=== PATIENT | female | born 1985 | race Caucasian/White ===

== ENCOUNTER 2022-08-03 12:56 | Emergency (ER) | payer BC, SELFPAY ==
[2022-08-03 12:57] VITALS: BP 105/69; PULSE 80; RESP 16; TEMP 36.5; O2SAT 98; BMI 25.1
--- NOTE | 2022-08-03 13:02 | ED_ITS ---
HPI - Chest Pain General Time Seen by Provider: 13:02 Date Seen: 08/03/22 Chief Complaint: Chest Pain Stated Complaint: Chest pain Time Seen by Provider: 08/03/22 13:02 Source: patient, RN notes reviewed and old records reviewed Mode of arrival: ambulatory Limitations: no limitations History of Present Illness HPI narrative: Patient is a very pleasant 36-year-old female who is status post thyroid cancer with recurrence by 1 year who comes to the emergency room with complaints of chest pain. Patient notes that for and off she has been experiencing anterior chest pain occasionally associated with radiation into her left neck and left arm. She does not think that this is associated with activity and does not have increasing discomfort with movement. Deep breathing does not increase her pain. She is not short of breath. She has not had any recent fever or chills. She has recently return from [place]. She denies calf tenderness or swelling. Of note, patient was diagnosed with thyroid cancer in 2014 and had partial thyroidectomy. She had recurrence of thyroid cancer 1 year ago and had the rest of her thyroid removed. Patient also notes that she has had episodes of flushing that she finds uncomfortable. She notes that this often happens after drinking coffee 1st thing in the morning but can also happen randomly. She is currently on magnesium daily. Patient notes significant grief and people in her last 8 months. Her mother had an aneurysm and a stroke and her father in law is currently dying from cancer. In addition of course she had recurrence or thyroid cancer and a total thyroidectomy 1 year ago. 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 Related Data Allergies Allergy/AdvReac Type Severity Reaction Status Date / Time No Known Drug Allergies Allergy Verified 08/03/22 13:01 Review of Systems Status of ROS Reports: 10 or more systems reviewed and unremarkable except as noted in History and below Const Reports: fatigue; Denies: fever or chills Eyes Denies: change in vision ENMT Denies: throat pain, difficulty swallowing or hoarseness Cardio Reports: chest pain; Denies: palpitations, swelling of feet/ankles, lightheadedness or shortness of breath with exertion Resp Denies: shortness of breath or cough GI Reports: other (Loose stools occasionally.); Denies: abdominal pain, nausea, vomiting, diarrhea or difficulty swallowing Denies: painful urination Musculo Denies: extremity pain Integ/Breast Reports: redness (Slight facial flushing when she feels hot.); Denies: rash Neuro Denies: headache Endo Reports: fatigue PFSH PFSH Social History Smoking Status: Never smoker Do you use any of these nicotine containing products: None How often do you have a drink containing alcohol: 4 or more times a week How many standard drinks containing alcohol do you have on a typical day: 1 or 2 AUDIT-C Alcohol total score: 4 Non-prescribed substance use: denies use service: No Exam Narrative Exam Narrative: Patient is alert and oriented. No acute distress. Eyes are clear. Head is atraumatic normocephalic. Mentation is normal. Neck is supple. No lymphadenopathy. Heart with regular rate and rhythm. No murmur or rub is noted. Lungs are clear in all lung lentz. Abdomen soft nontender. Lower extremities without edema or calf tenderness. Const Vital Signs, click to edit/add: Vital Signs - 24 hr 08/03/22 12:57 08/03/22 15:12 Temperature 97.7 F 98.1 F Pulse Rate [Pulse Oximeter] 80 84 Respiratory Rate 16 16 Blood Pressure [Right Upper Arm] 105/69 110/10 L Pulse Oximetry 98 96 Oxygen Delivery Method Room Air Room Air Documenting provider has reviewed patient's vital signs: yes Course Course Hospital Course: At this time I do discuss with patient importance of immediate rule out for underlying cardiac cause. Her vital signs are stable at this time and was must also include a D-dimer to rule out the possibility of PE. In addition chest x- ray will be accomplished to ensure no evidence of masses or underlying effusion or pneumonia. Vital Signs Vital signs: Initial Vital Signs Temperature 97.7 F 08/03/22 12:57 Temperature Source Temporal Artery Scan 08/03/22 12:57 Pulse Rate 80 08/03/22 12:57 Pulse Rhythm 08/03/22 12:57 Pulse Strength 3+ Normal 08/03/22 12:57 Respiratory Rate 16 08/03/22 12:57 Blood Pressure 105/69 08/03/22 12:57 Blood Pressure Mean 81 08/03/22 12:57 Blood Pressure Position Sitting 08/03/22 12:57 Pulse Oximetry 98 08/03/22 12:57 Oxygen Delivery Method 08/03/22 12:57 Vital Signs Temperature 97.7 F 08/03/22 12:57 Pulse Rate 80 02/22/23 12:57 Respiratory Rate 16 08/03/22 12:57 Blood Pressure 105/69 08/03/22 12:57 Pulse Oximetry 98 08/03/22 12:57 Oxygen Delivery Method 08/03/22 12:57 Temperature 98.1 F 08/03/22 15:12 Pulse Rate 84 08/03/22 15:12 Respiratory Rate 16 08/03/22 15:12 Blood Pressure 110/10 L 08/03/22 15:12 Pulse Oximetry 96 08/03/22 15:12 Oxygen Delivery Method 08/03/22 15:12 MDM - Chest Pain MDM Narrative Medical decision making narrative: 1. Atypical chest pain-patient is noted to have 2 normal EKGs. During her time here there is no evidence of arrhythmia or ectopy noted on her athletic monitor. Troponin negative x2 pain does not appear to be related to activity and this is been ongoing for quite some time. This does not appear to be cardiac in nature but I do recommend patient follow through with stress testing. Limited intense activity until that time. Follow-up with primary MD. suggest relaxation yoga or deep breathing exercises. We talked about various Apps including calm and had space. 2. Status post thyroidectomy-TSH pending 3. Flushing and hot flushes-magnesium normal at 1.9. Vitamin-D level not available at this time. 3. Disposition-home. Reassurance at this time. However, recommended to patient to return for any new or worsening symptoms. She actually states she is feeling better and relieved as she was worried about masses on the chest x-ray given her thyroid disease. Also worried about PE but I have reassured her that her D- dimer is negative. She also has no evidence of tachycardia or hypoxia. Medical Records Data Attestation: I reviewed the patient's medical records. Lab Data Attestation: I reviewed the patient's lab results. Labs: Lab Results 08/03/22 08/03/22 08/03/22 Range/Units 13:32 13:45 14:20 WBC 6.72 (4.50-11.00) K/uL RBC 4.50 (4.00-5.20) m/uL Hgb 12.2 (12.0-16.0) gm/dL Hct 37.9 (33.0-51.0) % MCV 84 (80-100) fL MCH 27 (26-34) pg MCHC 32 (32-36) gm/dL RDW Coeff of Scott 14.7 (11.5-15.5) % Plt Count 295 (140-440) K/uL Neut % (Auto) 66.6 (42.0-72.0) % Lymph % (Auto) 15.6 L (20-44) % [place] % (Auto) 8.5 (0.0-11.0) % Eos % (Auto) 8.5 H (0.0-7.0) % Baso % (Auto) 0.7 (0.0-3.0) % Neut # (Auto) 4.47 (1.7-7.0) K/uL Lymph # (Auto) 1.00 (0.90-2.90) K/uL [place] # (Auto) 0.60 (0.00-0.90) K/UL Eos # (Auto) 0.60 H (0.00-0.50) K/uL Baso # (Auto) 0.05 (0.00-0.30) K/uL D-Dimer Quant (PE/DVT) < 0.27 (0.00-0.50) ug/ml Sodium (135-149) mmol/L Potassium (3.6-5.1) mmol/L Chloride (96-114) mmol/L Carbon Dioxide (20-32) mmol/L BUN (5-24) mg/dL Creatinine (0.5-1.5) mg/dL Estimated Creat Clear Estimated GFR ml/min Glucose (60-115) mg/dL Calcium (8.4-10.6) mg/dL Magnesium (1.5-2.6) mg/dL Total Bilirubin (0.1-1.5) mg/dL AST (12-35) U/L ALT (4-35) U/L Alkaline Phosphatase (40-150) U/L C-Reactive Protein (0.5-1.0) mg/dL Total Protein (6.0-8.3) g/dL Albumin (3.3-5.0) g/dL 25-OH Vitamin D Total (30-80) ng/mL Urine Color Yellow (Yellow) Urine Appearance Clear (Clear) Urine pH 8.0 (5.0-8.5) Ur Specific [place] 1.020 (1.000-1.030) Urine Protein Negative (Negative) Urine Glucose (UA) Negative (Negative) Urine Ketones Negative (Negative) Urine Blood Negative (Negative) Urine Nitrite Negative (Negative) Urine Bilirubin Negative (Negative) Urine Urobilinogen 0.2 (0.2-1.0) Ur Leukocyte Esterase Negative (Negative) Urine RBC 0-2 (0-2) Urine WBC 0-2 (0-5) Ur Squamous Epith Cells Few (None-Few) Urine Bacteria Few A (None) POC Troponin I (0.01-0.04) ng/ml 08/03/22 08/03/22 08/03/22 Range/Units 14:20 14:20 14:20 WBC (4.50-11.00) K/uL RBC (4.00-5.20) m/uL Hgb (12.0-16.0) gm/dL Hct (33.0-51.0) % MCV (80-100) fL MCH (26-34) pg MCHC (32-36) gm/dL RDW Coeff of Scott (11.5-15.5) % Plt Count (140-440) K/uL Neut % (Auto) (42.0-72.0) % Lymph % (Auto) (20-44) % [place] % (Auto) (0.0-11.0) % Eos % (Auto) (0.0-7.0) % Baso % (Auto) (0.0-3.0) % Neut # (Auto) (1.7-7.0) K/uL Lymph # (Auto) (0.90-2.90) K/uL [place] # (Auto) (0.00-0.90) K/UL Eos # (Auto) (0.00-0.50) K/uL Baso # (Auto) (0.00-0.30) K/uL D-Dimer Quant (PE/DVT) (0.00-0.50) ug/ml Sodium 138 (135-149) mmol/L Potassium 3.9 (3.6-5.1) mmol/L Chloride 107 (96-114) mmol/L Carbon Dioxide 24 (20-32) mmol/L BUN 18 (5-24) mg/dL Creatinine 0.6 (0.5-1.5) mg/dL Estimated Creat Clear 126.05 Estimated GFR 119 ml/min Glucose 102 (60-115) mg/dL Calcium 8.7 (8.4-10.6) mg/dL Magnesium 1.9 (1.5-2.6) mg/dL Total Bilirubin 0.4 (0.1-1.5) mg/dL AST 22 (12-35) U/L ALT 16 (4-35) U/L Alkaline Phosphatase 50 (40-150) U/L C-Reactive Protein < 0.5 L (0.5-1.0) mg/dL Total Protein 7.6 (6.0-8.3) g/dL Albumin 4.6 (3.3-5.0) g/dL 25-OH Vitamin D Total 43 (30-80) ng/mL Urine Color (Yellow) Urine Appearance (Clear) Urine pH (5.0-8.5) Ur Specific [place] (1.000-1.030) Urine Protein (Negative) Urine Glucose (UA) (Negative) Urine Ketones (Negative) Urine Blood (Negative) Urine Nitrite (Negative) Urine Bilirubin (Negative) Urine Urobilinogen (0.2-1.0) Ur Leukocyte Esterase (Negative) Urine RBC (0-2) Urine WBC (0-5) Ur Squamous Epith Cells (None-Few) Urine Bacteria (None) POC Troponin I 0.01 (0.01-0.04) ng/ml 08/03/22 Range/Units 15:28 WBC (4.50-11.00) K/uL RBC (4.00-5.20) m/uL Hgb (12.0-16.0) gm/dL Hct (33.0-51.0) % MCV (80-100) fL MCH (26-34) pg MCHC (32-36) gm/dL RDW Coeff of Scott (11.5-15.5) % Plt Count (140-440) K/uL Neut % (Auto) (42.0-72.0) % Lymph % (Auto) (20-44) % [place] % (Auto) (0.0-11.0) % Eos % (Auto) (0.0-7.0) % Baso % (Auto) (0.0-3.0) % Neut # (Auto) (1.7-7.0) K/uL Lymph # (Auto) (0.90-2.90) K/uL [place] # (Auto) (0.00-0.90) K/UL Eos # (Auto) (0.00-0.50) K/uL Baso # (Auto) (0.00-0.30) K/uL D-Dimer Quant (PE/DVT) (0.00-0.50) ug/ml Sodium (135-149) mmol/L Potassium (3.6-5.1) mmol/L Chloride (96-114) mmol/L Carbon Dioxide (20-32) mmol/L BUN (5-24) mg/dL Creatinine (0.5-1.5) mg/dL Estimated Creat Clear Estimated GFR ml/min Glucose (60-115) mg/dL Calcium (8.4-10.6) mg/dL Magnesium (1.5-2.6) mg/dL Total Bilirubin (0.1-1.5) mg/dL AST (12-35) U/L ALT (4-35) U/L Alkaline Phosphatase (40-150) U/L C-Reactive Protein (0.5-1.0) mg/dL Total Protein (6.0-8.3) g/dL Albumin (3.3-5.0) g/dL 25-OH Vitamin D Total (30-80) ng/mL Urine Color (Yellow) Urine Appearance (Clear) Urine pH (5.0-8.5) Ur Specific [place] (1.000-1.030) Urine Protein (Negative) Urine Glucose (UA) (Negative) Urine Ketones (Negative) Urine Blood (Negative) Urine Nitrite (Negative) Urine Bilirubin (Negative) Urine Urobilinogen (0.2-1.0) Ur Leukocyte Esterase (Negative) Urine RBC (0-2) Urine WBC (0-5) Ur Squamous Epith Cells (None-Few) Urine Bacteria (None) POC Troponin I 0.00 L (0.01-0.04) ng/ml Imaging Data Chest x-ray: Attestation: I have reviewed the pertinent imaging results. My impression: No noted infiltrates or masses. Radiologist's impression: Cardiovasculature and mediastinum: Heart size and vasculature are normal in c aliber and appearance. Lungs and pleural spaces: Lungs are clear. No sign of infiltrate or mass. No sign of pleural effusion. No pneumothorax. Bones and soft tissues: No significant findings. IMPRESSION: No acute or significant findings. ECG Data Attestation: I personally reviewed and interpreted this ECG as follows: ECG interpretation date: 08/03/22 Interpretation: EKG 1. By my read shows sinus rhythm at a rate of 80. I do not note any acute ST or T-wave changes. Discharge Plan Discharge Clinical Impression: Atypical chest pain Patient Disposition: Home, Self-Care Condition: Improved Additional Instructions: Follow-up with primary MD for scheduling of stress testing. At this time there is no evidence of a heart attack or PE or cardiac injury or pericarditis/ myocarditis. I do suggest some antianxiety techniques, deep breathing, relaxation yoga. You may also try ibuprofen if needed. Do not hesitate to Return to the emergency room for worsening symptoms and as needed. Stand Alone Forms: [employer] Info Instructions
[2022-08-03 13:52] LABS: Appearance Urine Clear (Clear); Bilirubin Urine Negative (Negative); Blood Urine Negative (Negative); Color Urine Yellow (Yellow); Glucose Urine Negative (Negative); Ketones Urine Negative (Negative); Leukocyte Esterase Urine Negative (Negative); Nitrite Urine Negative (Negative); Protein Urine Negative (Negative); Urobilinogen Urine 0.2 (0.2-1.0)
--- NOTE | 2022-08-03 13:57 | CRLHL7_ITS ---
For Patients: As a result of the Century Cures Act, medical imaging exams and procedure reports are released immediately into your electronic medical record. You may view this report before your referring provider. If you have questions, please contact your health care provider. INDICATION: Chest pain. TECHNIQUE: Chest 1 views. COMPARISON: None. FINDINGS: Cardiovasculature and mediastinum: Heart size and vasculature are normal in caliber and appearance. Lungs and pleural spaces: Lungs are clear. No sign of infiltrate or mass. No sign of pleural effusion. No pneumothorax. Bones and soft tissues: No significant findings. IMPRESSION: No acute or significant findings. Dictated by Ayo Stone MD @ 08/03/2022 2:29:38 PM (Electronically Signed)
[2022-08-03 14:06] LABS: Bacteria Urine Few; RBC Urine 0-2 (0-2); Squamous Epithelial Cell Urine Few (None-Few); WBC Urine 0-2 (0-5)
[2022-08-03 14:32] LABS: Basophils Absolute Auto 0.05 K/uL (0.00-0.30); Basophils Percent Auto 0.7 % (0.0-3.0); Eosinophils Percent Auto 8.5 % (0.0-7.0); Hematocrit 37.9 % (33.0-51.0); Hemoglobin* 12.2 gm/dL (12.0-16.0); Immature Granulocytes Abs Auto 0.01 K/uL (0.00-0.30); Immature Granulocytes Pct Auto 0.1 %; Lymphocytes Percent Auto 15.6 % (20-44); Mean Corpuscular HGB Conc 32 gm/dL (32-36); Mean Corpuscular Hemoglobin 27 pg (26-34); Mean Corpuscular Volume 84 fL (80-100); Monocytes Percent Auto 8.5 % (0.0-11.0); Neutrophils Absolute Auto 4.47 K/uL (1.7-7.0); Neutrophils Percent Auto 66.6 % (42.0-72.0); Platelet Count* 295 K/uL (140-440); RDW Coefficient of Variation % 14.7 % (11.5-15.5); White Blood Count* 6.72 K/uL (4.50-11.00)
[2022-08-03 14:34] LABS: Troponin, Point-of-Care* 0.01 ng/ml (0.01-0.04)
[2022-08-03 14:37] LABS: Slide Review Reflex No
[2022-08-03 14:50] LABS: Chloride* 107 mmol/L (96-114)
[2022-08-03 14:53] LABS: Albumin* 4.6 g/dL (3.3-5.0); Creatinine* 0.6 mg/dL (0.5-1.5); Est. Creatinine Clearance* 126.05; Estimated Glomerular Filt Rate 119 ml/min; Potassium* 3.9 mmol/L (3.6-5.1); Sodium* 138 mmol/L (135-149)
[2022-08-03 14:54] LABS: Alanine Aminotransferase* 16 U/L (4-35); Alkaline Phosphatase* 50 U/L (40-150); Aspartate Amino Transferase* 22 U/L (12-35); Bilirubin Total* 0.4 mg/dL (0.1-1.5); Blood Urea Nitrogen* 18 mg/dL (5-24); Carbon Dioxide* 24 mmol/L (20-32); Glucose* 102 mg/dL (60-115); Total Protein* 7.6 g/dL (6.0-8.3)
[2022-08-03 14:55] LABS: Calcium* 8.7 mg/dL (8.4-10.6); D Dimer Quantitative* < 0.27 ug/ml (0.00-0.50); Magnesium* 1.9 mg/dL (1.5-2.6)
[2022-08-03 15:05] LABS: C Reactive Protein* < 0.5 mg/dL (0.5-1.0)
[2022-08-03 15:11] LABS: Vitamin D 25 Hydroxy* 43 ng/mL (30-80)
[2022-08-03 15:12] VITALS: BP 110/10; PULSE 84; RESP 16; TEMP 36.7; O2SAT 96
[2022-08-03 17:13] LABS: Thyroid Stimulating Hormone* 0.261 uIU/mL (0.270-4.20)
== END 2022-08-03 16:29 | disposition home or self-care (01) ==
PROVIDERS: Emergency Provider Family Medicine; PCP Family Medicine
DX: R07.9 Chest pain, unspecified (principal)
CPT/HCPCS: 36415; 71045; 80053; 81001; 82306; 82652; 83735; 84443; 84484; 85025; 85379; 86140; 87086; 93005; 99284

== ENCOUNTER 2023-08-04 10:15 | Outpatient (RCR) | payer BC, SELFPAY | END 2023-11-23 07:44 | disposition home or self-care (01) | PROVIDERS: PCP Family Medicine; Visit Provider Family Medicine | DX: N81.10 Cystocele, unspecified (principal); Z51.89 Encounter for other specified aftercare | CPT/HCPCS: 97110; 97112; 97162; 97535 ==

== ENCOUNTER 2024-06-27 08:09 | Outpatient (CLI) | payer BC, SELFPAY ==
--- NOTE | 2024-06-27 08:15 | CRLHL7_ITS ---
For Patients: As a result of the Cures Act, medical imaging exams and procedure reports are released immediately into your electronic medical record. You may view this report before your referring provider. If you have questions, please contact your health care provider. OB ULTRASOUND ??? TWIN INDICATION: Dating and viability. TECHNIQUE: Real time hurtado scale imaging of the fetus was performed. Transvaginal. LMP: 04/29/2024. YAS by LMP: 02/03/2025. GA: 8 w, 3 d. Previous US: No. BABY A: CRL: 2.3 cm. 9 w 0 d. YAS: 01/30/2025. FHR: 169 BPM. Gestational sac: 3.8 cm. Appears within normal limits. Yolk sac: 4.9 mm. Appears within normal limits. BABY B: CRL: 2.3 cm. 9 w 0 d. YAS: 01/30/2025. FHR: 171 BPM. Gestational sac: 4.3 cm. Appears within normal limits. Yolk sac: 4.1 mm. Appears within normal limits. Right ovary: Within normal limits. 4.0 x 2.4 x 26 cm. CL cyst 2.5 x 1.8 x 2.2 cm. Left ovary: Within normal limits. 3.9 x 2.3 x 2.3 cm. CL cyst 1.4 x 1.4 x 1.5 cm. IMPRESSION: 1. Diamniotic-dichorionic twin gestation. 2. Twin A: Gestational age 9 weeks 0 days and sonographic due date 01/30/2025, maternal left. 3. Twin B: Sonographic age 9 weeks 0 days and a sonographic due date 01/30/2025, maternal right. 4. Subchorionic hemorrhages measuring 16 x 5 x 13 mm on the right and 24 x 4 x 26 mm in the midline. 5. Bilateral corpus luteal cysts within the ovaries. Pierce Haney M.D. Diagnostic Radiologist [email or web address] JESSICA/lilly carr/Dictated by: Pierce Haney MD @ 06/27/2024 9:10:00 AM (Electronically Signed)
== END 2024-06-27 08:10 | disposition home or self-care (01) ==
LOC: US 08:11
PROVIDERS: PCP Family Medicine; Visit Provider Advanced Practice Midwife
DX: O30.041 Twin pregnancy, dichorionic/diamniotic, first trimester (principal); O20.9 Hemorrhage in early pregnancy, unspecified; O34.81 Maternal care for other abnormalities of pelvic organs, first trimester; N83.12 Corpus luteum cyst of left ovary; N83.11 Corpus luteum cyst of right ovary; Z3A.09 9 weeks gestation of pregnancy
CPT/HCPCS: 76817; 83021; 84439; 84443; 86592; 86703; 86704; 86706; 86762; 86787; 86803; 86850; 86900; 86901; 87086; 87340

== ENCOUNTER 2024-07-16 11:35 | Outpatient (CLI) | payer BC, SELFPAY | END 2024-07-16 11:36 | disposition home or self-care (01) | LOC: NFLDREF 07-17 02:24 | PROVIDERS: PCP Family Medicine; Referring Provider Family Medicine; Visit Provider Advanced Practice Midwife | DX: Z85.850 Personal history of malignant neoplasm of thyroid (principal); Z98.890 Other specified postprocedural states; Z90.89 Acquired absence of other organs | CPT/HCPCS: 84443 ==

== ENCOUNTER 2024-11-01 01:39 | Emergency (ER) | payer BC, SELFPAY ==
--- OUTSIDE RECORDS SUMMARY | 2024-10-01 09:45 | XMS_ITS | Encounter Summary ---
Author Organization [facility] Address [address] [place] [id number] Care Team Providers Care Heat Treat Technician Name Role Phone Elsewhere, Pcp Primary Care Provider Unavailabl e Reason for Visit * Reason Onset Date Comments Pre-visit Intake 10/01/2024 * Appointment Request (Routine) - Authorized Specialty Diagnoses / Procedures Referred By Lynne sky Referred To Contact Dermatology Referral ID Status Reason Start Date Expiration Date V isits Requested Visits Authorized [id number] Authorized 09/23/2024 12/24/2025 1 1 Encounter Details Date Type Department Care Team (Latest Contact Info) Description 10/01/2024 9:45 AM CDT Clinical Communication Virtual Review in [place], [place] [address] [place] [phone] Pre-visit Intake Social History Tobacco Use Types Packs/Day Years Used Date Smoking Tobacco: Never Smokeless Tobacco: Never Tobacco Cessation:Counseling Given: Not Answered Alcohol Use Standard Drinks/Week Comments Not Currently 6 (1 standard drink = 0.6 oz pur e alcohol) [facility] Utilities Answer Date Recorded In the past 12 months has th e electric, gas, oil, or water company threatened to shut off services in your home? No 07/10/2024 Social Connection and Isolat ion Panel [NHANES] Answer Date Recorded In a typical week, how many times do you talk on the phone with family, friends, or neighbors? More than three times a week 07/23/2019 How often do you get togethe r with friends or relatives? Once a week 07/23/2019 How often do you attend [facility] or roman catholic services? Never 07/23/2019 Do you belong to any clubs o r organizations such as presybeterian groups, unions, fraternal or athletic groups, or school groups? No 07/23/2019 How often do you attend meet ings of the clubs or organizations you belong to? Never 07/23/2019 Are you , , di vorced, , never , or living with a partner? 07/23/2019 AUDIT-C Answer Date Recorded Q1: How often do you have a drink containing alc ohol? 2-3 times a week 07/23/2019 Q2: How many drinks containi ng alcohol do you have on a typical day when you are drinking? 1 or 2 07/23/2019 Q3: How often do you have si x or more drinks on one occasion? Never 07/23/2019 Overall Financial Resource Strain (CARDIA) Answe r Date Recorded How hard is it for you to pa y for the very basics like food, housing, medical care, and heating? Not hard at all 07/23/2019 PHQ-2 Answer Date Recorded PHQ-2 Score 0 07/23/2024 [facility] - Occupational Stress Questionnaire Answer Date Recorded Do you feel stress - tense, restless, nervous, or anxious, or unable to sleep at night because your mind is troubled all the time - these days? Only a little 07/23/2019 Exercise Vital Sign Answer Date Recorde d On average, how many days pe r week do you engage in moderate to strenuous exercise (like a brisk walk)? 1 day 07/10/2024 On average, how many minutes do you engage in exercise at this level? 40 min 07/10/2024 Hunger Vital Sign Answer Date Recorded Within the past 12 months, y ou worried that your food would run out before you got the money to buy more. Never true 07/10/19 25 Within the past 12 months, t he food you bought just didn't last and you didn't have money to get more. Never true 07/10/2024 PRAPARE - Transportation Answer Date Re corded In the past 12 months, has l ack of transportation kept you from medical appointments or from getting medications? No 06/13 In the past 12 months, has l ack of transportation kept you from meetings, work, or from getting things needed for daily living? No 07/10/2024 Depression Answer Date Recor ded PHQ-9 Total Score (max 27) 1 07/23 Nutrition Answer Date Recorded On average, how many serving s of fruits and vegetables do you eat per day (serving size is equal to 1 cup or approximately the size of a tennis ball)? 0-2 07/10/2024 Dental Answer Date Recorded Dental: Regular Dentist Yes 07/10/19 25 Employment Answer Date Recorded Employment status Employed and actively working without restrictions 07/10/2024 Housing Stability Answer Date Recorded What is your living situation today? I have a [facility] place to live 07/10/2024 Education Answer Date Recorded What is the highest level of school you have completed or the highest degree you have received? Bachelor's degree (e.g., BA, AB, BS) 07/23/2019 Estimated Date of Delivery Comme nts Yes 01/25/2025 Based on Ultraso und Sex and Gender Information Value Date Recorded Sex Assigned at Female 12/07/2017 3:47 PM CDT Legal Sex Female 4:23 AM COMMUTATOR OPERATOR Gender Identity Female 12/07/2017 3:47 PM CDT Sexual Orientation Straight 12/07/2017 3: 47 PM CDT documented as of this encounter Plan of Treatment Upcoming Encounters Date Type Department Care Team (Late st Contact Info) Description 11/18/2024 7:30 AM CDT Appointment Department of Obstetrics and Gynecology in [place], [place] [address] [place] [phone] Yaa Hou M.D. [address] [place] [phone] Discharge Disposition: Home or Self Care 11/18/2024 9:30 AM CDT Routine Department of Obstetrics and Gynecology in [place], [place] [address] [place] [phone] Yaa Hou M.D. [address] [place] [phone] 12/06/2024 7:30 AM CDT Appointment Department of Obstetrics and Gynecology in [place], [place] [address] [place] [phone] Yaa Hou M.D. [address] [place] [phone] Discharge Disposition: Home or Self Care 12/06/2024 10:00 AM CDT Routine Department of Obstetrics and Gynecology in [place], [place] [address] [place] [phone] Lauren Syed M.D., Ph.D. [address] [place] [phone] 12/16/2024 9:15 AM CDT Appointment Department of Obstetrics and Gynecology in [place], [place] [address] [place] [phone] Yaa Hou M.D. [address] [place] [phone] Discharge Disposition: Home or Self Care 12/16/2024 11:00 AM CDT Routine Department of Obstetrics and Gynecology in [place], [place] [address] [place] [phone] Yaa Hou M.D. [address] [place] [phone] documented as of this encounter Goals Goal Patient Goal Type Associated Problems Recent Progress Patient-Stated? Author [facility] Care Plan for Healthy Care Plan [facility] Care Plan for Healthy No Support, [facility] - Nicotine Dependency Chronic Care Plan [facility] Care Plan for Healthy No Support, [employer] documented as of this encounter Visit Diagnoses Not on filedocumented in this encounter Additional Health Concerns Active Problems Noted Date Diagnosed Date [facility] Care Plan for Healthy 06/13 Assessment Noted Time PHQ-9 Depression Total Score: 1 07/23/19 25 9:31 AM COMMUTATOR OPERATOR documented as of this encounter Care Teams Heat Treat Technician Relationship Specialty Start Date End Date Elsewhere, Pcp PCP - General Internal Medicine 03/19/24 Surajbird 07/23/24 documented as of this encounter
--- OUTSIDE RECORDS SUMMARY | 2024-10-03 16:40 | XMS_ITS | Encounter Summary ---
Author Organization [facility] Address [address] [place] [id number] Care Team Providers Care Reimbursement Counselor Name Role Phone Elsewhere, Pcp Primary Care Provider Unavailabl e Reason for Visit * Appointment Request (Routine) - Closed Specialty Diagnoses / Procedures Referred By Contac t Referred To Contact Dermatology Diagnoses Screening Examination Skin Cancer Referral ID Status Reason Start Date Expiration Date Visits Re quested Visits Authorized [id number] Closed 10/25/2023 10/24/2024 1 1 Encounter Details Date Type Department Care Team (Late st Contact Info) Description 10/03/2024 4:40 PM CDT Office Visit Department of Dermatology in [place], [place] [address] [place] [phone] Bret Toledo M.D., M.B.A. [address] [place] [phone] Screening Examination Skin Cancer (Primary Dx); Keratosis Seborrheic; Dermatoheliosis; Angioma Mccormick; Nevi Multiple; Melanoma Family History Social History Tobacco Use Types Packs/Day Years Used Date Smoking Tobacco: Never Smokeless Tobacco: Never Alcohol Use Standard Drinks/Week Comments Not Currently 6 (1 standard drink = 0.6 oz pur e alcohol) [facility] Utilities Answer Date Recorded In the past 12 months has e electric, gas, oil, or water company [...] week 07/23/2019 How often do you attend chur ch or roman catholic services? Never 07/23/2019 Do you belong to any clubs o r organizations such as sikh groups, unions, fraternal or athletic groups, or [...] Answer Date Recorded PHQ-2 Score 0 07/23/2024 [facility] Occupat ional Health - Occupational Stress [...] Date Recorded Dental: Regular Dentist Yes 07/10/19 Employment Answer Date Recorded Employment status Employed and actively working without restrictions 07/10/2024 Housing Stability Answer Date Recorded What is your living situation today? 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 - 10/03/2024 4:40 PM CDT Correspondence to Bret Toledo M.D., M.B.A. CHIEF COMPLAINT / REASON FOR VISIT Skin cancer screening examination HISTORY OF PRESENT ILLNESS Mrs. Jayne Jonas is a 39 y.o. female who presents today for the above. Mrs. Jayne Jonas has no previous history of skin cancer or atypical nevi. No personal history of skin cancer. Two maternal aunts with a history of malignant melanoma. The patient was last seen on 01/03/2023 for a skin check. Mrs. Jayne Jonas tries to be diligent with photoprotective measures. PAST MEDICAL HISTORY No history of skin cancer PHYSICAL EXAM General: Awake, alert, in no acute distress, and with appropriate affect. Skin: I have examined the scalp, face, neck, chest, abdomen, back, bilateral upper extremities, andbilateral lower extremities. The exam was notable for dermatoheliosis, banal-appearing nevi, solar lentigines, seborrheic keratoses, and mccormick angiomas. ASSESSMENT / PLAN # Skin cancer screening examination # Family history of melanoma # Dermatoheliosis Sun protection and sun avoidance were reviewed with the patient. We reccomend skin self-examinations, knowing the warning signs and symptoms of skin cancer, and ensuring proper use of sunscreens (at least SPF 30). Patient can return to their primary care provider. # Banal-appearing nevi I recommend continued sun protection, self-skin examinations, and observation. Should any of the patient's nevi or lentigines change in size, color, texture, or shape or develop symptoms such as itching or bleeding, I recommend an immediate return visit for reassessment. # Seborrheic keratoses # Mccormick angiomas The benign nature of the skin lesion(s) was discussed with the patient. No treatment is required. Irecommend continued observation. Should symptoms or changes develop related to this condition, I would recommend a return visit for reassessment. All questions answered. It was our pleasure seeing Jayne Jonas today. The patient has been seen and examined with Bridgette Gutierres M.D.. Cosigned by Bridgette Gutierres M.D. at 10/03/2024 4:41 PM CDT Associated attestation - Bridgette Gutierres M.D. - 10/03/2024 4:41 PM CDT I saw and evaluated the patient, participating in the patrick portions of the service. I reviewed the resident/fellow???s note. I agree with the resident/fellow???s findings and plan. documented in this encounter Plan of Treatment Upcoming Encounters Date Type Department Care Team (Late st Contact Info) Description 11/18/2024 7:30 AM CDT Appointment Department of Obstetrics and Gynecology in [place], [place] [address] [place] [phone] Yaa Hou M.D. [address] [place] [phone] Discharge Disposition: Home or Self Care 11/18/2024 9:30 AM CDT Routine Department of Obstetrics and Gynecology in [place], [place] [address] [place] [phone] Yaa Hou M.D. [address] [place] [phone] 12/06/2024 7:30 AM CDT Appointment Department of Obstetrics and Gynecology in [place], [place] [address] [place] [phone] Yaa Hou M.D. [address] [place] [phone] Discharge Disposition: Home or Self Care 12/06/2024 10:00 AM CDT Routine Department of Obstetrics and Gynecology in [address] [phone] Lauren Syed M.D., Ph.D. [address] [place] [phone] 12/16/2024 9:15 AM CDT Appointment Department of Obstetrics and Gynecology in [address] [phone] Yaa Hou M.D. [address] [place] [phone] Discharge Disposition: Home or Self Care 12/16/2024 11:00 AM CDT Routine Department of Obstetrics and Gynecology in [place], [place] [address] [place] [phone] Yaa Hou M.D. [address] [place] [phone] documented as of this encounter Goals Goal Patient Goal Type Associated Problems Recent Progress Patient-Stated? Author [facility] Care Plan for Healthy Care Plan [facility] Care Plan for Healthy No Support, Cogito [facility] - Nicotine Dependency Chronic Care Plan [facility] Care Plan for Healthy No Support, Cogito documented as of this encounter Visit Diagnoses Diagnosis Screening Examination Skin Cancer- Primary Keratosis Seborrheic Dermatoheliosis Angioma Mccormick Nevi Multiple Melanoma Family History documented in this encounter Additional Health Concerns Active Problems Noted Date Diagnosed Date [facility] Care Plan for Healthy 06/13 Assessment Noted Time PHQ-9 Depression Total Score: 1 07/23/19 25 9:31 AM GROUP MARKETING VP documented as of this encounter Care Teams Reimbursement Counselor Relationship Specialty Start Date End Date Elsewhere, Pcp PCP - General Internal Medicine 03/19/24 Hailey 07/23/24 documented as of this encounter
--- OUTSIDE RECORDS SUMMARY | 2024-10-14 07:30 | XMS_ITS | Encounter Summary ---
Author Organization [facility] Address [address] [place] [address] Care Team Providers Care Case Folder Name Role Phone Elsewhere, Pcp Primary Care Provider Unavailabl e Encounter Details Date Type Department Care Team (Latest Contact Info) Description 10/14/2024 7:30 AM CDT - 10/14/2024 11:59 PM CDT Hospital Encounter Department of Obstetrics and Gynecology in [place], [place] [address] [place] [phone] Megan Colunga M.D. [address] [place] [phone] Twins (HCC); Hypothyroidism Discharge Disposition: Home or Self Care Social History Tobacco Use Types Packs/Day Years Used Date Smoking Tobacco: Never Smokeless Tobacco: Never Alcohol Use Standard Drinks/Week Comments Not Currently 6 (1 standard drink = 0.6 oz pur e alcohol) [facility] Utilities Answer Date Recorded In the past 12 months has hoccer, gas, oil, or water [employer] threatened to shut off services in your [...] 07/23/2019 How often do you attend chur or baptism services? Never 07/23/2019 Do you belong to any clubs o r organizations such as mandaen groups, unions, fraternal or athletic groups, or [...] Answer Date Recorded PHQ-2 Score 0 07/23/2024 [facility] of Occupat ional [facility] - Occupational Stress Questionnaire Answer Date Recorded [...] your living situation today? 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 07/23/2024 01/25/2025 FLUoxetine (PROzac) 20 mg capsuleIndication s: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HCC),Multigravid a Advanced Maternal Age Affecting Management (HCC),Abnormal Ultrasound Placenta Take 1 capsule (20 mg total) by mouth daily. 90 capsule 1 10/14/2024 04/12/2025 folic acid 800 mcg tablet Take 800 mcg by mouth daily. iron,carbonyl-vit isabel C (Vitron-C) 65 mg iron- [address] tablet Take 1 tablet (65 mg of iron total) by mouth daily. Do not crush or chew. 70 tablet 3 08/26/2024 levothyroxine 200 mcg tablet Take 1 tablet (200 mcg total) by mouth daily before morning meal. 90 tablet 3 08/27/2024 magnesium oxide (MAG-OX) 250 mg of magnesium tablet Take 250 mg by mouth daily as needed. omega 7-hfl-kbe-fish oil 1,000 mg (120 mg-180 mg) capsule Take by mouth. omeprazole (PriLOSEC) [address] capsule Take 1 capsule (40 mg total) by mouth daily before morning meal. 90 capsule 3 08/26/2024 eicimkz-Dm-mnxn-F A (Vinate One) 60 mg iron-1 mg per tablet Take 1 tablet by mouth daily. documented as of this encounter Plan of Treatment Upcoming Encounters Date Type Department Care Team (Late st Contact Info) Description 11/18/2024 7:30 AM CDT Appointment Department of Obstetrics and Gynecology in [place], [place] [address] [place] [phone] aYa Hou M.D. [address] [place] [phone] Discharge Disposition: Home or Self Care 11/18/2024 9:30 AM CDT Routine Department of Obstetrics and Gynecology in [place], [place] [address] [place] [phone] Yaa Hou M.D. [address] [place] [phone] 12/06/2024 7:30 AM CDT Appointment Department of Obstetrics and Gynecology in [address] [phone] Yaa Hou M.D. [address] [place] [phone] Discharge Disposition: Home or Self Care 12/06/2024 10:00 AM CDT Routine Department of Obstetrics and Gynecology in [address] [phone] Lauren Syed M.D., Ph.D. [address] [place] [phone] 12/16/2024 9:15 AM CDT Appointment Department of Obstetrics and Gynecology in [address] [phone] Yaa Hou M.D. [address] [place] [address] Discharge Disposition: Home or Self Care 12/16/2024 11:00 AM CDT Routine Department of Obstetrics and Gynecology in [place], [place] [address] [place] [phone] Yaa Hou M.D. [address] [place] [phone] documented as of this encounter Goals Goal Patient Goal Type Associated Problems Recent Progress Patient-Stated? Author [facility] Care Plan for Healthy Care Plan [facility] Care Plan for Healthy No Support, Keesha [facility] - Nicotine Dependency Chronic Care Plan [facility] Care Plan for Healthy No Support, Keesha documented as of this encounter Procedures Procedure Name Priority Date/Time Associated Diagnosis Comments US OB FOLLOW-UP AND OR GROWTH TWINS RAD - Routine (most inpatients and all outpatients) 10/14/2024 7:34 AM CDT Twins (HCC) Hypothyroidism documented in this encounter Results * US OB Follow-up and or Growth Twins (10/14/2024 7:34 AM CDT) Anatomical Region Laterality Modality Body, Ultrasound OB RST LOS, Ultrasound ARZ LOS N/A Ultrasound 10/14/2024 7:34 AM CDT Narrative 10/14/2024 8:49 AM CDT Exam Type ========= OB Follow-up Anatomy with Growth Indication ======== twins, check growth, twin B circumvallate placenta History ====== OB History 4 Method ====== Transabdominal ultrasound examination ========= Twin . Dichorionic-diamniotic Dating ====== Date Details Gest. age YAS Stated YAS 25 w + 2 d 01/25/2025 U/S Fetus 1 10/14/2024 based upon AC, BPD, Femur, HC 25 w + 1 d 01/26/2025 U/S Fetus 2 based upon AC, BPD, Femur, HC 25 w + 5 d 01/22/2025 Assigned dating based on ultrasound (Fetus 2: CRL), selected on 07/23/2024 25 w + 2 d 01/25/2025 Fetus 1: Biometry BPD 61.3 mm 24w 6d 28% AC 209.9 mm 25w 4d 49% HC 230.1 mm 25w 0d 20% Femur 45.1 mm 24w 6d 25% APAD 66.4 mm 26w 2d HC / AC 1.10 TAD 67.1 mm 26w 2d Weight Calculation: EFW 785 g 25w 0d 37% EFW by [place] EFW (lb,oz) 1 lb 12 oz ([id number]) EFW discordance 2.8 % Extremities / Bony Struc Biometry: FL / BPD 0.74 FL / AC 0.21 FL / HC 0.20 Fetus 1: Growth Overview Exam date GA BPD (mm) HC (mm) AC (mm) FL (mm) HL (mm) EFW (g) 09/12/2024 20w 5d 49 54% 182.5 -0.1SD 148.1 24% 31.3 12% 32.4 54% 327 15% 10/14/2024 25w 2d 61.3 28% 230.1 20% 209.9 49% 45.1 25% 785 37% Fetus 1: General Evaluation Cardiac activity present. FHR 140 bpm. Presentation: Presenting, Cephalic, mat Lt Amniotic fluid: MVP 4.0 cm Fetus 1: Anatomy The following structures appear normal: Heart / Thorax 3-vessel view. 4-beyepm-bitsadt view. Abdomen Stomach. Bladder. The following structures could not be visualized: Face Lips. Fetus 2: Biometry BPD 65.8 mm 26w 4d 82% AC 209.9 mm 25w 4d 49% HC 236.0 mm 25w 5d 40% Femur 45.4 mm 25w 0d 28% APAD 67.1 mm 26w 4d HC / AC 1.12 TAD 66.4 mm 26w 1d Weight Calculation: EFW 807 g 25w 1d 45% EFW by [place] EFW (lb,oz) 1 lb 12 oz ([id number]) EFW discordance 2.8 % Extremities / Bony Struc Biometry: FL / BPD 0.69 FL / AC 0.22 FL / HC 0.19 Fetus 2: Growth Overview Exam date GA BPD (mm) HC (mm) AC (mm) FL (mm) HL (mm) EFW (g) 09/12/2024 20w 5d 51.3 81% 188.5 +0.3SD 168.5 79% 31.9 17% 31.1 33% 394 61% 10/14/2024 25w 2d 65.8 82% 236 40% 209.9 49% 45.4 28% 807 45% Fetus 2: General Evaluation Cardiac activity present. FHR 150 bpm. Presentation: Breech, maternal right Amniotic fluid: MVP 4.6 cm Fetus 2: Anatomy The following structures appear normal: Heart / Thorax Aortic arch view. Abdomen Stomach. The following structures could not be adequately visualized: Heart / Thorax Bicaval view. Abdomen Bladder. Impression ========= Dichorionic diamniotic twin . Appropriate growth and normal amniotic fluid volume for both twins. No significant intertwin growth discordance (2.8 %). Twin A Presenting, Cephalic, mat Lt. Appropriate growth (EFW 785 g (1 lb12 oz) 37%, AC 49%). Amniotic fluid volume normal (MVP 4 cm). Twin B Breech, maternal right. Appropriate growth (EFW 807 g (1 lb12 oz) 45%, AC 49%). Amniotic fluid volume normal (MVP 4.6 cm). Some of the anatomy survey images were completed and no abnormalities were detected. However, there are a few images that remain suboptimal due to position. Plan for completing anatomy survey images during the next ultrasound for growth (see anatomy section of this report for information on images needing completion). Procedure Note Eamon Eubanks M.D. - 10/14/2024 Exam Type ========= OB Follow-up Anatomy with Growth Indication ======== twins, check growth, twin B circumvallate placenta History ====== OB History 4 Method ====== Transabdominal ultrasound examination ========= Twin . Dichorionic-diamniotic Dating ====== Date DetailsGest. age YAS Stated YAS 25 w + 2 d 01/25/2025 U/S Fetus 1 10/14/2024 based upon AC, BPD, Femur, HC 25w + 1 d 01/26/2025 U/S Fetus 2 based upon AC, BPD, Femur, HC 25 w + 5 01/22/2025 Assigned dating based on ultrasound (Fetus 2: CRL), selected on w + 2 d 01/25/2025 Fetus 1: Biometry BPD 61.3 mm 24w 6d 28% AC 209.9 mm 25w4d 49% HC 230.1 mm 25w 0d 20% Femur 45.1 mm 24w 6d25% APAD 66.4 mm 26w 2d HC / AC 1.10 TAD 67.1 mm 26w 2d Weight Calculation: EFW 785 g 25w 0d 37% EFW by [place] EFW (lb,oz) 1 lb 12 oz ([id number]) EFW discordance 2.8 % Extremities / Bony Struc Biometry: FL / BPD 0.74 FL / AC 0.21 FL / HC 0.20 Fetus 1: Growth Overview Exam date GA BPD (mm) HC (mm) AC (mm) FL (mm) HL (mm) EFW(g) 09/12/2024 20w 5d 49 54% 182.5 -0.1SD 148.1 24%31.3 12% 32.4 54% 327 15% 10/14/2024 25w 2d 61.3 28% 230.1 20% 209.9 49%45.1 25% 785 37% Fetus 1: General Evaluation Cardiac activity present. FHR 140 bpm. Presentation: Presenting, Cephalic,mat Lt Amniotic fluid: MVP 4.0 cm Fetus 1: Anatomy The following structures appear normal: Heart / Thorax 3-vessel view. 8-fuivjq-itnupwl view. Abdomen Stomach. Bladder. The following structures could not be visualized: Face Lips. Fetus 2: Biometry BPD 65.8 mm 26w 4d 82% AC 209.9 mm 25w 4d49% HC 236.0 mm 25w 5d 40% Femur 45.4 mm 25w 0d28% APAD 67.1 mm 26w 4d HC / AC 1.12 TAD 66.4 mm 26w 1d Weight Calculation: EFW 807 g 25w 1d 45% EFW by [place] EFW (lb,oz) 1 lb 12 oz ([id number]) EFW discordance 2.8 % Extremities / Bony Struc Biometry: FL / BPD 0.69 FL / AC 0.22 FL / HC 0.19 Fetus 2: Growth Overview Exam date GA BPD (mm) HC (mm) AC (mm) FL (mm) HL (mm) EFW(g) 09/12/2024 20w 5d 51.3 81% 188.5 +0.3SD 168.5 79%31.9 17% 31.1 33% 394 61% 10/14/2024 25w 2d 65.8 82% 236 40% 209.9 49%45.4 28% 807 45% Fetus 2: General Evaluation Cardiac activity present. FHR 150 bpm. Presentation: Breech, maternalright Amniotic fluid: MVP 4.6 cm Fetus 2: Anatomy The following structures appear normal: Heart / Thorax Aortic arch view. Abdomen Stomach. The following structures could not be adequately visualized: Heart / Thorax Bicaval view. Abdomen Bladder. Impression ========= Dichorionic diamniotic twin . Appropriate growth and normal amniotic fluid volume for bothtwins. No significant intertwin growth discordance (2.8 %). Twin A Presenting, Cephalic, mat Lt. Appropriate growth (EFW 785 g (1 lb12 oz) 37%, AC 49%). Amniotic fluid volume normal (MVP 4 cm). Twin B Breech, maternal right. Appropriate growth (EFW 807 g (1 lb12 oz) 45%, AC 49%). Amniotic fluid volume normal (MVP 4.6 cm). Some of the anatomy survey images were completed and no abnormalities weredetected. However, there are a few images that remain suboptimal due tofetal position. Plan for completing anatomy survey images during the next ultrasound forgrowth (see anatomy section of this report for information on imagesneeding completion). us Megan Colunga M.D. 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
--- OUTSIDE RECORDS SUMMARY | 2024-10-14 09:30 | XMS_ITS | Encounter Summary ---
Author Organization [facility] Address [address] [place] [address] Care Team Providers Care Council On Aging Director Name Role Phone Elsewhere, Pcp Primary Care Provider Unavailabl e Reason for Referral * Specialty Diagnoses / Procedures Referred By Lynne sky Referred To Contact Diagnoses 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HCC) Multigravida Advanced Maternal Age Affecting Management (HCC) Abnormal Ultrasound Placenta Yaa Hou M.D. [address] [place] [address] Phone: tel: fax: [facility] Referral ID Status Reason Start Date Expiration Date Visits Re quested Visits Authorized Scheduling Instructions ATU nurse visit * Outpatient (Routine) - Closed Specialty Diagnoses / Procedures Referred By Lynne sky Referred To Contact Diagnoses 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HCC) Type O Blood Rhesus Negative Multigravida Advanced Maternal Age Affecting Management (HCC) Abnormal Ultrasound Placenta Procedures Injection Visit - Rhogam Yaa Hou M.D. [address] [place] [address] Phone: tel: fax: [facility] Referral ID Status Reason Start Date Expiration Date Visits Re quested Visits Authorized [id number] Closed 10/14/2024 01/14/2026 1 1 * Outpatient (Routine) - Authorized Specialty Diagnoses / Procedures Referred By Lynne t Referred To Contact Obstetrics and Gynecology Diagnoses 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HCC) Multigravida Advanced Maternal Age Affecting Management (HCC) Abnormal Ultrasound Placenta Yaa Hou M.D. [address] [place] [phone] Phone: tel: fax: Yaa Hou M.D. [address] [place] [phone] Phone: tel: fax: Referral ID Status Reason Start Date Expiration Date V isits Requested Visits Authorized [id number] Authorized 10/14/2024 04/15/2026 1 1 * Outpatient (Routine) - Authorized Specialty Diagnoses / Procedures Referred By Lynne t Referred To Contact Obstetrics and Gynecology Diagnoses 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HCC) Multigravida Advanced Maternal Age Affecting Management (HCC) Abnormal Ultrasound Placenta Yaa Hou M.D. [address] [place] [phone] Phone: tel: fax: Yaa Hou M.D. [address] [place] [phone] Phone: tel: fax: Referral ID Status Reason Start Date Expiration Date V isits Requested Visits Authorized [id number] Authorized 10/14/2024 04/15/2026 1 1 Reason for Visit * Reason Comments Routine Visit * Outpatient (Routine) - Closed Specialty Diagnoses / Procedures Referred By Contac t Referred To Contact Obstetrics and Gynecology Megan Colunga M.D. [address] [place] [phone] Phone: tel: fax: [facility] Referral ID Status Reason Start Date Expiration Date Visits Re quested Visits Authorized [id number] Closed 08/26/2024 02/25/2026 1 1 Encounter Details Date Type Department Care Team (Late st Contact Info) Description 10/14/2024 9:30 AM CDT Routine Department of Obstetrics and Gynecology in [place], [place] [address] [place] [phone] Yaa Hou M.D. [address] [place] [phone] 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HCC) (Primary Dx); Hypothyroidism Postsurgical; Sleep Apnea Unspecified; Depression Anxiety; Type O Blood Rhesus Negative; Multigravida Advanced Maternal Age Affecting Management (HCC); Abnormal Ultrasound Placenta Social History Tobacco Use Types Packs/Day Years Used Date Smoking Tobacco: Never Smokeless Tobacco: Never Alcohol Use Standard Drinks/Week Comments Not Currently 6 (1 standard drink = 0.6 oz pur e alcohol) [facility] [employer] Answer Date Recorded In the past 12 months has [employer] electric, gas, oil, or water [employer] threatened to shut off services in your [...] often do you attend chur ch or lutheran services? Never 07/23/2019 Do you belong to any clubs o r organizations such as druze groups, unions, fraternal or athletic groups, or [...] Answer Date Recorded PHQ-2 Score 0 07/23/2024 [facility] - Occupational Stress Questionnaire Answer Date [...] money to buy more. Never true 07/10/19 Within the past 12 months, t he [...] your living situation today? I have a [facility] place to live 07/10/2024 Education Answer [...] PM CDT Legal Sex Female 4:23 AM [employer]OVING MARK[employer] Gender Identity Female 12/07/2017 3:47 PM CDT Sexual Orientation Straight 12/07/2017 3: 47 PM CDT documented as of this encounter Last Filed Vital Signs Vital Sign Reading Time Taken Comments Blood Pressure 91/56 10/14/2024 9:22 AM CDT Pulse 88 10/14/2024 9:22 AM CDT Temperature 36.4 C (97.5 F) 10/14/2024 9:22 AM CDT Respiratory Rate - - Oxygen Saturation 99% 10/14/2024 9:22 AM CDT Inhaled Oxygen Concentration - - Weight 79.2 kg (174 lb 9.7 oz) 10/14/2024 9:22 A M CDT Height - - Body Mass Index 27.44 03/21/2024 8:54 AM CDT documented in this encounter Progress Notes * Yaa Hou M.D. - 10/14/2024 9:30 AM CDT ASSESSMENT / PLAN #1 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HCC) Overview: MFM consultation reviewed US at 13 weeks confirmed diagnosis and YAS updated - spontaneous vitamin, folic acid 1 mg and iron daily initiated Aspirin 81 mg daily starting at 12-16 weeks initiated Detailed anatomy scan - incomplete US for growth every 4 weeks Weekly BPP starting at at 34 weeks unless indications develop for earlier testing If otherwise uncomplicated, delivery at 37 0/7 -6/7 Assessment & Plan: Appropriate concordant growth on ultrasound today. Continuing efforts to complete detailed anatomy scan Discussed timing of delivery. At this time we would not have an indication to actively deliver before 37 weeks gestation. Rationale discussed #2 Hypothyroidism Postsurgical Overview: 08/26/24: TSH 1.4, remains on 200 mcg levothyroxine s/p 2 surgical resections (now complete) due to papillary thyroid cancer Started on levothyroxine 200 mcg daily in first trimester. Prepregnancy on 175 mcg levothyroxine daily Assessment & Plan: Follow-up thyroid testing ordered for today #3 Sleep Apnea Unspecified Overview: Wearing CPAP regularly Asked her to bring CPAP with her to the hospital for any admissions Assessment & Plan: With recent URI she had difficulty breathing overnight. She believes that this caused an increase in anxiety. She is feeling much better now that her breathing has improved.. She did not end up increasing her fluoxetine dose. #4 Depression Anxiety Overview: Has been stable on fluoxetine Wellbutrin discontinued with diagnosis (started for weight management) Assessment & Plan: We had discussed titrating her fluoxetine up to 40 mg daily. Her symptoms improved so she did not end up increasing the dose. We discussed that this option remains during and #5 Type O Blood Rhesus Negative Overview: Planning Rhogam about 28 weeks and then as indicated Cell free DNA screening did not evaluate Rh status in twins. Assessment & Plan: RhoGAM injection visit ordered #6 Multigravida Advanced Maternal Age Affecting Management (HCC) Overview: UNITY testing reported as low risk per patient Assessment & Plan: Will start testing slightly earlier based on age. #7 Abnormal Ultrasound Placenta Overview: Circumvallate placenta noted for twin B on earlier ultrasound but not commented on with subsequent ultrasounds Assessment & Plan: We reviewed again that circumvallate placenta is associated with reduced growth but that thisis not always present. Due to her twin gestation we will be monitoring growth on a monthly basis so would identify if growth of twin B is negatively impacted Other orders - Obstetrics and Gynecology office visit (clinic) - Obstetrics and Gynecology office visit (clinic); Future; Expected date: 11/11/2024 - US OB Follow-up and or Growth Twins; Future; Expected date: 11/11/2024 - Obstetrics and Gynecology office visit (clinic); Future; Expected date: 12/09/2024 - US OB Growth and or Follow Up BPP Twins; Future; Expected date: 12/09/2024 - T4 (Thyroxine), Free; Future; Expected date: 10/14/2024 - Ferritin; Future; Expected date: 10/14/2024 - FLUoxetine (PROzac) 20 mg capsule; Take 1 capsule (20 mg total) by mouth daily., Starting 10/14/2024, Until 04/12/2025, NormalFile -does not need refill currently - Injection Visit - Rhogam; Future; Expected date: 10/28/2024 - Obstetrics and Gynecology - MFM education visit (clinic); Future; Expected date: 12/16/2024 - US OB Limited + BPP Twins; Future; Expected date: 12/16/2024 We discussed her diagnosis and plan. She stated her understanding. Questions answered. Anticipatoryguidance provided. Glucose testing and other labs pending for today. Yaa Hou M.D. documented in this encounter Miscellaneous Notes * Assessment & Plan Note - Yaa Hou M.D. - 10/15/2024 6:45 PM CDT Associated Problem(s): Abnormal Ultrasound Placenta We reviewed again that circumvallate placenta is associated with reduced growth but that thisis not always present. Due to her twin gestation we will be monitoring growth on a monthly basis so would identify if growth of twin B is negatively impacted * Assessment & Plan Note - Yaa Hou M.D. - 10/15/2024 6:38 PM CDT Associated Problem(s): Multigravida Advanced Maternal Age Affecting Management (HCC) Will start testing slightly earlier based on age. * Assessment & Plan Note - Yaa Hou M.D. - 10/15/2024 6:37 PM CDT Associated Problem(s): Depression Anxiety We had discussed titrating her fluoxetine up to 40 mg daily. Her symptoms improved so she did not end up increasing the dose. We discussed that this option remains during and * Assessment & Plan Note - Yaa Hou M.D. - 10/15/2024 6:36 PM CDT Associated Problem(s): Type O Blood Rhesus Negative RhoGAM injection visit ordered * Assessment & Plan Note - Yaa Hou M.D. - 10/15/2024 6:33 PM CDT Associated Problem(s): 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HCC) Appropriate concordant growth on ultrasound today. Continuing efforts to complete detailed anatomy scan Discussed timing of delivery. At this time we would not have an indication to actively deliver before 37 weeks gestation. Rationale discussed * Assessment & Plan Note - Yaa Hou M.D. - 10/15/2024 6:32 PM CDT Associated Problem(s): Sleep Apnea Unspecified With recent URI she had difficulty breathing overnight. She believes that this caused an increase in anxiety. She is feeling much better now that her breathing has improved.. She did not end up increasing her fluoxetine dose. * Assessment & Plan Note - Yaa Hou M.D. - 10/15/2024 6:31 PM CDT Associated Problem(s): Hypothyroidism Postsurgical Follow-up thyroid testing ordered for today documented in this encounter Plan of Treatment Upcoming Encounters Date Type Department Care Team (Late st Contact Info) Description 11/18/2024 7:30 AM CDT Appointment Department of Obstetrics and Gynecology in [place], [place] [address] [place] [phone] Yaa Hou M.D. [address] [place] [phone] Discharge Disposition: Home or Self Care 11/18/2024 9:30 AM CDT Routine Department of Obstetrics and Gynecology in [place], [place] [address] [place] [phone] Yaa Hou M.D. [address] [place] [phone] 12/06/2024 7:30 AM CDT Appointment Department of Obstetrics and Gynecology in [place], [place] [address] [place] [phone] Yaa Hou M.D. [address] [place] [phone] Discharge Disposition: Home or Self Care 12/06/2024 10:00 AM CDT Routine Department of Obstetrics and Gynecology in [place], [place] [address] [place] [phone] Lauren Syed M.D., Ph.D. [address] [place] [phone] 12/16/2024 9:15 AM CDT Appointment Department of Obstetrics and Gynecology in [place], [place] [address] [place] [phone] Yaa Hou M.D. [address] [place] [phone] Discharge Disposition: Home or Self Care 12/16/2024 11:00 AM CDT Routine Department of Obstetrics and Gynecology in [place], [place] [address] [place] [phone] Yaa Hou M.D. [address] [place] [phone] Scheduled Orders Name Type Priority Associated Diagnoses Orde r Schedule US OB Follow-up and or Growth Twins Imaging RAD - Routine (most inpatients and all outpatients) 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HCC) Multigravida Advanced Maternal Age Affecting Management (HCC) Abnormal Ultrasound Placenta Expected: 11/11/2024, Expires: 01/14/2026 US OB Growth and or Follow Up BPP Twins Imaging RAD - Routine (most inpatients and all outpatients) 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HCC) Multigravida Advanced Maternal Age Affecting Management (HCC) Abnormal Ultrasound Placenta Expected: 12/09/2024, Expires: 01/14/2026 US OB Limited + BPP Twins Imaging RAD - Routine (most inpatients and all outpatients) 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HCC) Multigravida Advanced Maternal Age Affecting Management (HCC) Abnormal Ultrasound Placenta Expected: 12/16/2024, Expires: 01/14/2026 Scheduled Referrals Name Type Priority Associated Diagnoses Orde r Schedule Obstetrics and Gynecology office visit (clinic) Outpatient Referral Routine 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HCC) Multigravida Advanced Maternal Age Affecting Management (HCC) Abnormal Ultrasound Placenta Expected: 11/11/2024, Expires: 01/14/2026 Obstetrics and Gynecology office visit (clinic) Outpatient Referral Routine 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HCC) Multigravida Advanced Maternal Age Affecting Management (HCC) Abnormal Ultrasound Placenta Expected: 12/09/2024, Expires: 01/14/2026 Obstetrics and Gynecology - [facility] education visit (clinic) Outpatient Referral Routine 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HCC) Multigravida Advanced Maternal Age Affecting Management (HCC) Abnormal Ultrasound Placenta Expected: 12/16/2024, Expires: 01/14/2026 documented as of this encounter Goals Goal Patient Goal Type Associated Problems Recent Progress Patient-Stated? Author [facility] Care Plan for Healthy Care Plan [facility] Care Plan for Healthy No SupportKeesha [facility] Plan - Nicotine Dependency Chronic Care Plan [facility] Care Plan for Healthy No Support, Keesha documented as of this encounter Results * Injection Visit - Rhogam (10/28/2024 9:45 AM CDT) Narrative Beverly Strong L.PDemiN. - 10/28/2024 9:45 AM CDT Beverly Strong L.P.N. 10/28/2024 10:30 AM Injection Visit - Rhogam Performed by: Beverly Strong L.P.N. Authorized by: Yaa Hou M.D. Yaa Hou M.D. OB GYNE ORDERABLES Final Re sult * Ferritin (10/14/2024 12:54 PM CDT) Ferritin, S 7 6 - 175 mcg/L 10/14/2024 2:42 PM CDT DTL Blood (Blood, Venous) 10/14/2024 12:54 PM CDT 10/14/2024 1:31 PM CDT Yaa Hou M.D. LAB BLOOD ADD-ON Final Resu lt Performing Organization Address City/[facility]/ZIP Co de Phone Number [facility] [address] [place] [address], [facility] [address] [place] [address] * T4 (Thyroxine), Free (10/14/2024 12:54 PM CDT) T4 (Thyroxine), Free, S 1.2 0.9 - 1.7 ng/dL 10/14/2024 2:42 PM CDT DTL Blood (Blood, Venous) 10/14/2024 12:54 PM CDT 10/14/2024 1:31 PM CDT Yaa Hou M.D. LAB BLOOD ADD-ON Final Resu lt Performing Organization Address City/[facility]/ZIP Co de Phone Number [facility] [address] [place] [address], [facility] [place] [address] documented in this encounter Visit Diagnoses Diagnosis 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HCC)- Primary Hypothyroidism Postsurgical Sleep Apnea Unspecified Depression Anxiety Type O Blood Rhesus Negative Multigravida Advanced Maternal Age Affecting Management (HCC) Abnormal Ultrasound Placenta Need Vaccine Immunization Tetanus And Diphtheria Toxoids And Pertussis- Primary 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HCC) Type O Blood Rhesus Negative Multigravida Advanced Maternal Age Affecting Management (HCC) Abnormal Ultrasound Placenta documented in this encounter Additional Health Concerns Active Problems Noted Date Diagnosed Date [facility] Care Plan for Healthy 06/13 Assessment Noted Time PHQ-9 Depression Total Score: 1 07/23/19 25 9:31 AM [employer]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
--- OUTSIDE RECORDS SUMMARY | 2024-10-14 11:00 | XMS_ITS | Encounter Summary ---
Author Organization [facility] Address [address] [place] [address] Care Team Providers Care Media Aid Name Role Phone Elsewhere, Pcp Primary Care Provider Unavailabl e Reason for Visit * Physical Therapy (Routine) - Authorized Specialty Diagnoses / Procedures Referred By Contac t Referred To Contact Diagnoses 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HCC) Weakness General Procedures PT Ongoing treatment Yaa Hou M.D. [address] [place] [address] Phone: tel: fax: [facility] Referral ID Status Reason Start Date Expiration Date V isits Requested Visits Authorized [id number] Authorized 08/26/2024 06/11/2025 10 10 Encounter Details Date Type Department Care Team (Latest Contact Info) Description 10/14/2024 11:00 AM CDT Clinical Support Department of Physical Medicine and Rehabilitation in [place], [place] [address] [place] [address] [phone] Yaa Hou M.D. [address] [place] [phone] Kelsea Plaza P.T., D.P.T. [address] [place] [address] [phone] 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HCC); Weakness General Social History Tobacco Use Types Packs/Day Years Used Date Smoking Tobacco: Never Smokeless Tobacco: Never Alcohol Use Standard Drinks/Week Comments Not Currently 6 (1 standard drink = 0.6 oz pur e alcohol) [facility] Utilities Answer Date Recorded In the past [...] often do you attend chur ch or anabaptist services? Never 07/23/2019 Do you belong to any clubs o r organizations such as rastafari groups, unions, fraternal or athletic groups, or [...] Answer Date Recorded PHQ-2 Score 0 07/23/2024 [facility] of Occupat ional Health - Occupational Stress [...] your living situation today? 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 - 10/14/2024 11:00 AM CDT Physical Therapy Musculoskeletal Outpatient Progress Note SUBJECTIVE Patient's Name: Jayne Jonas Referring Provider: Yaa Hou M.D. Medical Diagnosis: 1. 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HCC) 2. Weakness General Reason for Referral: Eval and Treat Pelvic Health Onset Date: 08/26/24 Payor: [employer] / Plan: [employer] / Product Type: PPO / Epic Visit Count: 2 History of Present Illness: with twins Patient goals:to not let prolapse get worse and restart exercise routine Patient reports she wants to talk about a bellyband. Some back pain but not terrible. She has some good maternity leggings and that helps. It has been difficult to work out with a rehab trainer. She is walking. Fall in the last 12 months: No OBJECTIVE Vitals: not indicated for today's session TREATMENT Treatment today consisted of: Neuromuscular Re-education A back against the wall and clamshells to work on coordination of the abdominal muscles and hips Self Care/Home Management: Taping for abdominal and belly support, trialed mother to be belt and SIbelt Access Code: [email or web address] URL: [email or web address] Date: 10/14/2024 Prepared by: Kelsea Plaza Program Notes Groin pain- sit to put shoes and get dress, car, lunges?, or wide stance exercises? Constipation - add in gentle laxatives, use squatty potty- exhale as you push the stool out Prolapse- with coughing, sneezing kegel then turn away with lifting- exhale, PF contraction, hug babies prior to lifting and that goes for exercise, or rolling in bed. continue walking as necessary or feels good work with rehab trainer belly bands or xrvrb-PK-wxao - [email or web address]#[email or web address] KinesioTape or Rock tape worksSerola Size 3 or Large Exercises - Clamshell - 1 x daily - 5-7 x weekly - 1 sets - 5-40 reps - Standing with Back Flat Against Wall - 1 x daily - 5-7 x weekly - 1 sets - 1-4 reps - 10-30sec hold - Wall [place] - 1 x daily - 5-7 x weekly - 1 sets - 5-40 reps Reviewed previously instructed exercises for technique. New exercises, progressions and needed changes to exercises are detailed above. Patient was provided verbal cueing and physical cueing for proper independent completion of exercises by end of session. The following patient education materials were provided today: Medbridge: Paper copy provided to patient Assessment Initial Examination findings significant for: 1.EITAN, umbilical hernia 2.glute and hip weakness 3.twin Clinical Impression: Patient responded well to exercises but does not have time to be doing significant amounts of exercise so we need to keep the home exercise program condensed. Patient responded well to the taping butfound the mother to be belt to cumbersome. Patient found SI belt to be very supportive as well willconsider these for at home. Patient will benefit from outpatient therapy to Continue to manage musculoskeletal problems as the progresses Functional Goals and Timeframes: PT Goal #1: Patient will be able to demonstrate and verbalize home exercise program correctly in order to show understanding of the exercises for performing independently. PT Goal #1 to be achieved by: 02/22/25 PT Goal #1 Status: Progressing PT Goal #2: Patient will report 1-2 days a week of exercise throughout . PT Goal #2 to be achieved by: 02/22/25 PT Goal #2 Status: Progressing Plan Physical Therapy Attestation Statement: Patient agrees with the plan of care and goals. Treatment Plan: Plan: Plan of care initiated Number of Visits: up to 10 visits. PT Duration: up to 180 days PT Amount: 1 visit per day PT Frequency: (schedule with OB visits) Treatment interventions may include: Treatment/Interventions: Therapeutic exercise, Therapeutic functional activity, Neuromuscular re-education, Self-care/home management, Therapeutic modalities as needed, Manual therapy, Gait training Plan for next session: Patient is scheduled for a follow up in 1 month where we will see the patient for any musculoskeletal changes that have occurred otherwise patient can push this point appointment out further if thereare no needs at that time. Time Spent with Patient Therapeutic Interventions Home Management Training (min): 23 min Neuromuscular Re-Education (min): 8 min Time Tracking Total Timed Units (min): 31 min Total Treatment Time (min): 31 min Kelsea Plaza P.T., D.P.T. documented in this encounter Plan of Treatment Upcoming Encounters Date Type Department Care Team (Late st Contact Info) Description 11/18/2024 7:30 AM CDT Appointment Department of Obstetrics and Gynecology in [place], [place] [address] [place] [phone] Yaa Hou M.D. [address] [place] [phone] Discharge Disposition: Home or Self Care 11/18/2024 9:30 AM CDT Routine Department of Obstetrics and Gynecology in [place], [place] [address] [place] [phone] Yaa Hou M.D. [address] [place] [phone] 12/06/2024 7:30 AM CDT Appointment Department of Obstetrics and Gynecology in [place], [place] [address] [place] [phone] Yaa Hou M.D. [address] [place] [phone] Discharge Disposition: Home or Self Care 12/06/2024 10:00 AM CDT Routine Department of Obstetrics and Gynecology in [place], [place] [address] [place] [phone] Lauren Syed M.D., Ph.D. [address] [place] [phone] 12/16/2024 9:15 AM CDT Appointment Department of Obstetrics and Gynecology in [place], [place] [address] [place] [phone] Yaa Hou M.D. [address] [place] [phone] Discharge Disposition: Home or Self Care 12/16/2024 11:00 AM CDT Routine Department of Obstetrics and Gynecology in [place], [place] [address] [place] [phone] Yaa Hou M.D. [address] [place] [phone] documented as of this encounter Goals Goal Patient Goal Type Associated Problems Recent Progress Patient-Stated? Author [facility] Care Plan for Healthy Care Plan [facility] Care Plan for Healthy No Support, Keesha [facility] - Nicotine Dependency Chronic Care Plan [facility] Care Plan for Healthy No Support, Carlos Albertoito documented as of this encounter Visit Diagnoses Diagnosis 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HCC) Weakness General documented in this encounter Additional Health Concerns Active Problems Noted Date Diagnosed Date [facility] Care Plan for Healthy 06/13 Assessment Noted Time PHQ-9 Depression Total Score: 1 07/23/19 25 9:31 AM 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
--- OUTSIDE RECORDS SUMMARY | 2024-10-16 08:00 | XMS_ITS | Encounter Summary ---
Author Organization [facility] Address [address] [place] [phone] Care Team Providers Care Periodontist Name Role Phone Elsewhere, Pcp Primary Care Provider Unavailabl e Reason for Visit * Reason Comments Other Glucose Tolerance, 3 Hours Encounter Details Date Type Department Care Team (Late st Contact Info) Description 10/16/2024 8:00 AM CDT Lab Division of Endocrinology in [place], [place] [address] [place] [phone] Yaa Hou M.D. [address] [place] [phone] High Risk (HCC) Social History Tobacco Use Types Packs/Day Years Used Date Smoking Tobacco: Never Smokeless Tobacco: Never Alcohol Use Standard Drinks/Week Comments Not Currently 6 (1 standard drink = 0.6 oz pur e alcohol) [facility] Utilities Answer Date Recorded In the past 12 months has [employer], gas, oil, or water [employer] threatened to shut off services in your [...] often do you attend chur ch or confucianist services? Never 07/23/2019 Do you belong to any clubs o r organizations such as moravian groups, unions, fraternal or athletic groups, or [...] Answer Date Recorded PHQ-2 Score 0 07/23/2024 [facility] of Occupat ional [facility] - Occupational Stress Questionnaire Answer [...] your living situation today? 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 - 10/16/2024 7:45 AM CDT Jayne Dona Solorioan presented to the Endocrine Testing Area for the Gestational Oral Glucose ToleranceTest (OGTT), 3-hr Test. documented in this encounter Plan of Treatment Upcoming Encounters Date Type Department Care Team (Late st Contact Info) Description 11/18/2024 7:30 AM CDT Appointment Department of Obstetrics and Gynecology in [place], [place] [address] [place] [phone] Yaa Hou M.D. [address] [place] [phone] Discharge Disposition: Home or Self Care 11/18/2024 9:30 AM CDT Routine Department of Obstetrics and Gynecology in [place], [place] [address] [place] [phone] Yaa Hou M.D. [address] [place] [phone] 12/06/2024 7:30 AM CDT Appointment Department of Obstetrics and Gynecology in [address] [phone] Yaa Hou M.D. [address] [place] [phone] Discharge Disposition: Home or Self Care 12/06/2024 10:00 AM CDT Routine Department of Obstetrics and Gynecology in [address] [phone] Lauren Syed M.D., Ph.D. [address] [place] [phone] 12/16/2024 9:15 AM CDT Appointment Department of Obstetrics and Gynecology in [place], [place] [address] [place] [phone] Yaa Hou M.D. [address] [place] [phone] Discharge Disposition: Home or Self Care 12/16/2024 11:00 AM CDT Routine Department of Obstetrics and Gynecology in [address] [phone] Yaa Hou M.D. [address] [place] [phone] Scheduled Orders Name Type Priority Associated Diagnoses Orde r Schedule Glucose, POCT Point of Care Testing-Docked Device Routine High Risk (HCC) Ordered: 10/16/2024 documented as of this encounter Goals Goal Patient Goal Type Associated Problems Recent Progress Patient-Stated? Author [facility] Care Plan for Healthy Care Plan [facility] Care Plan for Healthy No SupportKeesha [place] Care Plan - Nicotine Dependency Chronic Care Plan [facility] Care Plan for Healthy No Support, Cog[place] documented as of this encounter Procedures Procedure Name Priority Date/Time Associated Diagnosis Comments GLUCOSE POCT, B Routine 10/16/2024 11:06 AM CDT GLUCOSE LAI, 3 HR, S/P Routine 10/16/2024 8:07 AM CDT High Risk (HCC) documented in this encounter Results * Glucose, POCT (10/16/2024 11:06 AM CDT) Glucose, POCT, B 115 70 - 140 mg/dL 10/16/2024 11:09 AM CDT PCDT Comment: Glucose results collected from venous catheters may be falsely elevated. Site Venline 10/16/2024 11:09 AM CDT PCDT Blood 10/16/2024 11:0 6 AM CDT 10/16/2024 11:09 AM CDT us Unknown Provider LAB POCT ORDERABLES-MANUAL Nila l Result POC [facility] [address] [place] [address], [facility] PCDT [facility] POC [address] [place] [address] * Glucose Tolerance, 3 Hours (10/16/2024 8:07 AM CDT) Glucose, Fasting 94 Not Applicable mg/dL 10/16/2024 9:12 AM CDT DTL Glucose, 1 Hr 124 Not Applicable mg/dL 10/16/2024 9:48 AM CDT DTL Glucose, 2 Hr 114 Not Applicable mg/dL 10/16/2024 11:13 AM CDT DTL Glucose, 3 Hr 120 Not Applicable mg/dL 10/16/2024 11:42 AM CDT DTL Blood (Blood, Venous) 10/16/2024 8:07 AM CDT 10/16/2024 8:55 AM CDT Narrative [facility] - 10/16/2024 11:42 AM CDT Specimen Information: Specimen ID: [id number] Specimen Type: Blood Specimen Collection Start Date: 10/16/2024 8:07 AM Specimen Received Date: 10/16/2024 8:55 AM Specimen ID: [id number] Specimen Type: Blood Specimen Collection Start Date: 10/16/2024 9:10 AM Specimen Received Date: 10/16/2024 9:33 AM Specimen ID: [id number] Specimen Type: Blood Specimen Collection Start Date: 10/16/2024 10:09 AM Specimen Received Date: 10/16/2024 10:38 AM Specimen ID: [id number] Specimen Type: Blood Specimen Collection Start Date: 10/16/2024 11:07 AM Specimen Received Date: 10/16/2024 11:29 AM Yaa Hou M.D. LAB BLOOD NON ADD-ON Final Result [facility] [address] [place] [address], [facility] DTFormerly named [facility] [address] [place] [address] documented in this encounter Visit Diagnoses Diagnosis High Risk (HCC) documented in this encounter Administered Medications Inactive Administered Medications - up to 3 most recent administrations Medication Order MAR Action Action Date Dose Rate Site sodium chloride 0.9 % injection 10 mL 10 mL, intravenous, As needed, line care, Peripheral Intravenous Catheter and Rapid Infusion Catheter, Starting on 10/16/24 at 0745, For 1 day, Prior to blood sampling, post blood transfusion or post blood sampling. Given 10/16/2024 11:08 AM CDT 10 mL Given 10/16/2024 10:06 AM CDT 10 mL Given 10/16/2024 9:11 AM CDT 10 mL documented in this encounter Additional Health Concerns Active Problems Noted Date Diagnosed Date [facility] Care Plan for Healthy 06/13 Assessment Noted Time PHQ-9 Depression Total Score: 1 07/23/19 25 9:31 AM STOCK ROOM MANAGER documented as of this encounter Care Teams Periodontist Relationship Specialty Start Date End Date Elsewhere, Pcp PCP - General Internal Medicine 03/19/24 [place] 07/23/24 documented as of this encounter
--- OUTSIDE RECORDS SUMMARY | 2024-10-16 12:45 | XMS_ITS | Encounter Summary ---
Author Organization [facility] Address [address] [place] [address] Care Team Providers Care Chemical Engineering Technician Name Role Phone Elsewhere, Pcp Primary Care Provider Unavailabl e Reason for Visit * Reason Comments Outpatient Infusion Infed Encounter Details Date Type Department Care Team (Late st Contact Info) Description 10/16/2024 12:45 PM CDT Infusion Department of Infusion Therapy in [place], [place] [address] [place] [phone] Lauren Syed M.D., Ph.D. [address] [place] [phone] High Risk (HCC) (Primary Dx); Anemia Discharge Disposition: Home or Self Care Social History Tobacco Use Types Packs/Day Years Used Date Smoking Tobacco: Never Smokeless Tobacco: Never Alcohol Use Standard Drinks/Week Comments Not Currently 6 (1 standard drink = 0.6 oz pur e alcohol) [facility] Utilities Answer Date Recorded In the past 12 months has [employer], gas, oil, or water [employer] threatened to shut off services in your [...] week 07/23/2019 How often do you attend [facility] or cheondoism services? Never 07/23/2019 Do you belong to any clubs o r organizations such as sabianism groups, unions, fraternal or athletic groups, or [...] Answer Date Recorded PHQ-2 Score 0 07/23/2024 [facility] of Occupat ional [facility] - Occupational Stress Questionnaire Answer Date [...] your living situation today? 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 OPERATOR Gender Identity Female 12/07/2017 3:47 PM CDT Sexual Orientation Straight 12/07/2017 3: 47 PM CDT documented as of this encounter Last Filed Vital Signs Vital Sign Reading Time Taken Comments Blood Pressure 96/50 10/16/2024 2:23 PM CDT Pulse 94 10/16/2024 2:23 PM CDT Temperature 36.8 C (98.2 F) 10/16/2024 12:23 PM CDT Respiratory Rate 16 10/16/2024 2:23 PM CDT Oxygen Saturation - - Inhaled Oxygen Concentration - - Weight - - Height - - Body Mass Index - - documented in this encounter Plan of Treatment Upcoming Encounters Date Type Department Care Team (Late st Contact Info) Description 11/18/2024 7:30 AM CDT Appointment Department of Obstetrics and Gynecology in [place], [place] [address] [place] [phone] Yaa Hou M.D. [address] [place] [phone] Discharge Disposition: Home or Self Care 11/18/2024 9:30 AM CDT Routine Department of Obstetrics and Gynecology in [place], [place] [address] [place] [phone] Yaa Hou M.D. [address] [place] [phone] 12/06/2024 7:30 AM CDT Appointment Department of Obstetrics and Gynecology in [place], [place] [address] [place] [phone] Yaa Hou M.D. [address] [place] [phone] Discharge Disposition: Home or Self Care 12/06/2024 10:00 AM CDT Routine Department of Obstetrics and Gynecology in [place], [place] [address] [place] [phone] Lauren Syed M.D., Ph.D. [address] [place] [phone] 12/16/2024 9:15 AM CDT Appointment Department of Obstetrics and Gynecology in [place], [place] [address] [place] [phone] Yaa Hou M.D. [address] [place] [phone] Discharge Disposition: Home or Self Care 12/16/2024 11:00 AM CDT Routine Department of Obstetrics and Gynecology in [place], [place] [address] [place] [phone] Yaa Hou M.D. [address] [place] [phone] documented as of this encounter Goals Goal Patient Goal Type Associated Problems Recent Progress Patient-Stated? Author [facility] Care Plan for Healthy Care Plan [facility] Care Plan for Healthy No SupportKeesha [facility] - Nicotine Dependency Chronic Care Plan [facility] Care Plan for Healthy No SupportKeesha documented as of this encounter Visit Diagnoses Diagnosis High Risk (HCC)- Primary Anemia documented in this encounter Administered Medications Inactive Administered Medications - up to 3 most recent administrations Medication Order MAR Action Action Date Dose Rate Site iron dextran 25 mg of iron in NaCl 0.9% IVPB (Infed) 25 mg of iron, intravenous, at 606 mL/hr, Administer over 5 Minutes, Once, On Mon10/16/24 at 1245, For 1 dose, Administer test dose over 5 minutes. Observation after test dose will be 15 minutes. Do not repeat test dose with future rounds.Indications:Anemia ,High Risk (HCC) New Bag 10/16/2024 12:42 PM CDT 25 mg of iron 606 mL/hr iron dextran 975 mg of iron in NaCl 0.9% IVPB (Infed) 975 mg of iron, intravenous, at 270 mL/hr, Administer over 60 Minutes, Once, On Mon10/16/24 at 1315, For 1 doseIndications:Anemia,Hi gh Risk (HCC) New Bag 10/16/2024 1:19 PM CDT 975 mg of iron 270 mL/hr NaCl 0.9% infusion 1-999 mL/hr, intravenous, As needed, Post Medications (Hazardous/Low Fluid Volume), Starting on Mon10/16/24 at 1219, Infuse at the same rate as the medication until tubing cleared of medication, then discard.Indications:Anemi a New Bag 10/16/2024 12:47 PM CDT 606 mL/hr 606 mL/hr documented in this encounter Additional Health Concerns Active Problems Noted Date Diagnosed Date [facility] Care Plan for Healthy 06/13 Assessment Noted Time PHQ-9 Depression Total Score: 1 07/23/19 25 9:31 AM CUT TO LENGTH OPERATOR documented as of this encounter Care Teams Chemical Engineering Technician Relationship Specialty Start Date End Date Elsewhere, Pcp PCP - General Internal Medicine 03/19/24 [place] 07/23/24 documented as of this encounter
--- OUTSIDE RECORDS SUMMARY | 2024-10-28 09:45 | XMS_ITS | Encounter Summary ---
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 200 [place] [address] Phone: tel: fax: [facility] Referral ID Status Reason Start Date Expiration Date Visits Re quested Visits Authorized [id number] Closed 10/14/2024 01/14/2026 1 1 Encounter Details Date Type Department Care Team (Late st Contact Info) Description 10/28/2024 9:45 AM CDT Procedure visit Department of Obstetrics and Gynecology in [place], [place] [address] [place] [phone] Yaa Hou M.D. [address] [place] [phone] Beverly Strong L.P.N. 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 Never 07/23/2019 Do you belong to any clubs o r organizations such as anglican groups, unions, fraternal or athletic groups, or [...] Answer Date Recorded PHQ-2 Score 0 07/23/2024 [facility] [place] [facility] Occupat [facility] - Occupational Stress [...] your living situation today? 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 Authorized by: Yaa Hou M.D. Jayne Jonas was seen 10/28/2024 in the clinic for IM Rho(D) immune globulin administration. Patient denies receiving IM Rho(D) immune globulin in the last 12 weeks. Verified patient blood type is Rh negative and patient has had a negative antibody screen during current . Administrations This Visit rho(D) immune globulin injection syringe 300 mcg (Rhophylac) Admin Date 10/28/2024 Action Given Dose 300 mcg Route intramuscular Documented By Beverly Strong L.PDemiNDemi Blood Type: O Neg Antibody Screen Date Value Ref Range Status 07/23/2024 Negative Negative Final Following the injection, patient was directly monitored in the clinic for 20 minutes. Patient tolerated the injection well: Yes Patient was provided written education on Rho(D) immune globulin and completed identification card.Patient verbalized understanding of teaching and no further questions or concerns at this time. documented in this encounter Plan of Treatment Upcoming Encounters Date Type Department Care Team (Late st Contact Info) Description 11/18/2024 7:30 AM CDT Appointment Department of Obstetrics and Gynecology in [place], [place] [address] [place] [address] Yaa Hou M.D. [address] [place] [phone] Discharge Disposition: Home or Self Care 11/18/2024 9:30 AM CDT Routine Department of Obstetrics and Gynecology in [place], [place] [address] [place] [phone] Yaa Hou M.D. [address] [place] [phone] 12/06/2024 7:30 AM CDT Appointment Department of Obstetrics and Gynecology in [place], [place] [address] [place] [phone] Yaa Hou M.D. [address] [place] [phone] Discharge Disposition: Home or Self Care 12/06/2024 10:00 AM CDT Routine Department of Obstetrics and Gynecology in [address] [phone] Lauren Syed M.D., Ph.D. [address] [place] [phone] 12/16/2024 9:15 AM CDT Appointment Department of Obstetrics and Gynecology in [address] [phone] Yaa Hou M.D. [address] [place] [phone] Discharge Disposition: Home or Self Care 12/16/2024 11:00 AM CDT Routine Department of Obstetrics and Gynecology in [address] [phone] Yaa Hou M.D. [address] [place] [phone] documented as of this encounter Goals Goal Patient Goal Type Associated Problems Recent Progress Patient-Stated? 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 - 10/28/2024 9:45 AM CDT Beverly Strong L.PDemiNDemi 10/28/2024 10:30 AM Injection Visit - Rhogam Performed by: Beverly Strong LDemiP.N. Authorized by: Yaa Hou M.D. Yaa Hou M.D. 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
--- OUTSIDE RECORDS SUMMARY | 2024-10-28 10:30 | XMS_ITS | Encounter Summary ---
Author Organization [facility] Address [address] [place] [phone] Care Team Providers Care Hook Up Driver Name Role Phone Elsewhere, Pcp Primary Care Provider Unavailabl e Reason for Visit * Outpatient (Routine) - Closed Specialty Diagnoses / Procedures Referred By Contdarlyn t Referred To Contact Obstetrics and Gynecology Yaa Hou M.D. [address] [place] [phone] Phone: tel: fax: [facility] Referral ID Status Reason Start Date Expiration Date Visits Re quested Visits Authorized [id number] Closed 10/28/2024 04/29/2026 1 1 Encounter Details Date Type Department Care Team (Late st Contact Info) Description 10/28/2024 10:30 AM CDT Routine Department of Obstetrics and Gynecology in [place], [place] [address] [place] [phone] Yaa Hou M.D. 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 Never 07/23/2019 Do you belong to any clubs o r organizations such as catholic groups, unions, fraternal or athletic groups, or [...] Answer Date Recorded PHQ-2 Score 0 07/23/2024 [facility] Questionnaire Answer Date [...] your living situation today? I have a [facility] place to live 07/10/2024 Education Answer [...] PM CDT Legal Sex Female 4:23 AM CARAMEL CUTTER HAND Gender Identity Female 12/07/2017 3:47 PM CDT Sexual Orientation Straight 12/07/2017 3: 47 PM CDT documented as of this encounter Progress Notes * Yaa Hou M.D. - 10/28/2024 10:30 AM CDT ASSESSMENT / PLAN #1 Twin [...] If otherwise uncomplicated, delivery at 37 0/7 -67 Assessment & Plan: She presents today for RhoGAM and Tdap. She was very busy this weekend and feels that she may be slightly dehydrated. She noted some change in movement and is concerned. No other concerns voiced. On office ultrasound the backs are lateral with presenting twin on the left and the other on the right. Normal cardiac activity identified by ultrasound on both twins and visually confirmed with mom. 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 Other orders - Obstetrics and Gynecology office visit (clinic) We discussed her diagnosis and plan. She stated her understanding. Questions answered. Anticipatoryguidance provided. Yaa Hou M.D. documented in this encounter Miscellaneous Notes * Assessment & Plan Note - Yaa Hou M.D. - 10/28/2024 11:34 AM CDT Associated Problem(s): 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HCC) She presents today for RhoGAM and Tdap. She was very busy this weekend and feels that she may be slightly dehydrated. She noted some change in movement and is concerned. No other concerns voiced. On office ultrasound the backs are lateral with presenting twin on the left and the other on the right. Normal cardiac activity identified by ultrasound on both twins and visually confirmed with mom. documented in this encounter Plan of Treatment Upcoming Encounters Date Type Department Care Team (Late st Contact Info) Description 11/18/2024 7:30 AM CDT Appointment Department of Obstetrics and Gynecology in [place], [place] [address] [place] [address] Yaa Hou M.D. [address] [place] [address] Discharge Disposition: Home or Self Care 11/18/2024 9:30 AM CDT Routine Department of Obstetrics and Gynecology in [place], [place] [address] [place] [phone] Yaa Hou M.D. [address] [place] [phone] 12/06/2024 7:30 AM CDT Appointment Department of Obstetrics and Gynecology in [place], [place] [address] [place] [phone] Yaa Hou M.D. [address] [place] [phone] Discharge Disposition: Home or Self Care 12/06/2024 10:00 AM CDT Routine Department of Obstetrics and Gynecology in [place], [place] [address] [place] [phone] Lauren Syed M.D., Ph.D. [address] [place] [phone] 12/16/2024 9:15 AM CDT Appointment Department of Obstetrics and Gynecology in [address] [phone] Yaa Hou M.D. [address] [place] [phone] Discharge Disposition: Home or Self Care 12/16/2024 11:00 AM CDT Routine Department of Obstetrics and Gynecology in [place], [place] [address] [place] [phone] Yaa Hou M.D. [address] [place] [phone] documented as of this encounter Goals Goal Patient Goal Type Associated Problems Recent Progress Patient-Stated? 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
[2024-11-01 01:42] VITALS: BP 117/71; PULSE 102; RESP 16; TEMP 36.6; O2SAT 99; BMI 28.5
--- OUTSIDE RECORDS SUMMARY | 2024-11-01 01:42 | XMS_ITS | Clinical Summary ---
Author Organization [facility] Address [address] [place] [id number] Care Team Providers Care Shelter Monitor Name Role Phone Trisha King MD Primary Care Provider [phone] Allergies No known active allergies Medications CPAPIndications: DIANNA (obstructive sleep apnea) CPAP machine for home use at pressure: 5-8.6 cmw , Heated humidifier x 1 q 5 yr, Humidifier chamber x 1 q 6 mo, nasal mask x1 q 3mos, with cushion x 2 q mo, Heated tubing x 1 q 3 mo, Headgear x 1 q 6 mo, Filters: Disposable x 2 q mo non-disposable filters x1 q 6mo, Length of Need: 99 months, Frequency of use: Daily 1 Each 4 3 Active calcium carbonate (CALCIUM 300 ORAL) Take by mouth. Activ e cyanocobalamin (Vitamin B-12) 1,000 mcg tablet Take 1,000 mcg by mouth once daily. Active calcium carb/D3/magnesiu m/zinc (DEION MAG ZINC PLUS D3 ORAL) Take by mouth. Activ e polyethylene glycol-electroly te (GOLYTELY) 236-22.74-6.74 -5.86 gram suspensionIndica tions:Encounter for screening colonoscopy Drink 2 liters (half the bottle) the day before colonoscopy and 2 liters (remaining prep) 6 hours prior to colonoscopy appointment. 4000 mL 04/10/202 4 Active levothyroxine (SYNTHROID) 175 mcg tabletIndication s:Papillary carcinoma of thyroid (HC) TAKE 1 TABLET(175 MCG) BY MOUTH BEFORE BREAKFAST 90 Tablet 2 4 Active buPROPion (WELLBUTRIN XL) 150 mg Extended-Release tabletIndication s:Anxiety Take 1 Tablet (150 mg) by mouth once daily. 90 Tablet 3 4 Active FLUoxetine (PROZAC) 20 mg capsuleIndicatio ns:Anxiety Take 1 Capsule (20 mg) by mouth once daily in the morning. 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 See summary letter from cancer genetic counselor dated 06/09/2024. 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/2017): Dx [facility], managed through [facility] Vitamin D deficiency 06/16/2017 Cancer of thyroid 06/15/2017 Overview (06/15/2017): Thyroidectomy Papillary carcinoma of thyroid 04/06/2015 Allergic rhinitis, cause unspecified 11/09/2006 Comments Yes Encounters Date Type Department Care Team Description 10/08/2024 Refill [facility] [address] [place] [address] Trisha King MD Refill Request (Fluoxetine) 09/05/2024 Refill [facility] [address] [place] [address] Trisha King MD Refill Request (LEVOTHYUROXINE 0.175 MG TABS) from Last 3 Months Immunizations Immunization Administration Dates Next Due COVID-19 vaccine (Moderna 100mcg/0.5mL) PF, MDV 04/08/2021,09/17/2020,08/20/2020 COVID-19 vaccine (Pfizer-Bio NTech 30mcg/0.3mL) 12YO+ BIVALENT PF, MDV 06/21/2022 COVID-19 vaccine (Pfizer-Bio NTech 30mcg/0.3mL) 12YO+ YOUSUF-SUCROSE PF, MDV 01/07/2022 DTP 10/19/1990, 7,06/13/1986,12/25,1985 Hepatitis B (Adult) 06/20/2003 Hepatitis B (Peds) 01/01/2004,07/23/2003, 004 INFLUENZA, IIV3 PF (AGE >= 6 MO) 03/14/2024 Influenza Virus, Unspecified 03/05/2018,04/05/20 17,07/20/2016 Influenza, IIV4 03/20/2023, 2,03/17/2021,03/25,03/06/2019,03/05/2018,04/05/2017 ,07/20/2016 MMR 10/10/1997,09/22/1997,04/30/1987 Meningococcal Vaccine (Menactra) 01/01/2004 Meningococcal Vaccine (Menomune) 01/01/2004 Oral Polio Vaccine 04/30/1987, 7,1985,10/24 Pneumococcal Conj 20-valent (Prevnar 20) 06/21/2022 Td (Age >=7 Years) 09/14/2007,10/10/1997, 998 Tdap 05/08/2020,11/21/2016,11/28/2013 Family History Medical History Relation Name Comments Good Health Father Cancer-breast Maternal Aunt Diabetes Maternal Grandfather Lung cancer Maternal Grandmother Meniere's disease Mother COPD Paternal Grandfather Heart Disease Paternal Grandfather Heart attack Paternal Grandfather Cervical cancer Paternal Grandmother Stroke Paternal Grandmother Good Health Sister Relation Name Status Comments Father Alive Maternal Aunt Maternal Grandfather Maternal Grandmother Alive Mother Alive Paternal Grandfather Paternal Grandmother Sister Alive Social History Tobacco Use Types Packs/Day Years Used Date Smoking Tobacco: Never Smokeless Tobacco: Never Tobacco Cessation:Counseling Given: Yes Alcohol Use Standard Drinks/Week Comments Yes 8 (1 standard drink = 0.6 oz pur e alcohol) PHQ-2 Answer Date Recorded PHQ-2 TOTAL SCORE 3 05/08/2024 Social Connections Answer Date Recorded Do you often feel lonely or isolated from those around you? 0 11/09/2023 Financial Resource Strain Answer Date R ecorded Difficulty of Paying Living Expenses 3 11/09/2023 Difficulty of Paying Living Expenses Not on file 11/09/2023 Food Insecurity Answer Date Recorded Do you worry your food will run out before you are able to buy more? 1 11/09/2023 Transportation Needs Answer Date Record ed Does lack of transportation keep you from medica l appointments? 1 11/09/2023 Does lack of transportation keep you from work, meetings or getting things that you need? 1 11/09/2023 Housing Stability Answer Date Recorded What is your housing situation today? 1 11/09/2023 Utilities Answer Date Recorded Do you have trouble paying f or utilities (for example, heat, electricity, water, phone)? 1 11/09/2023 Comments Yes Sex and Gender Information Value Date Recorded Sex Assigned at Not on file Legal Sex Female 5:22 AM UNLOADER OPERATOR Gender Identity Not on file Sexual Orientation Not on file Obstetrics History Para Term AB IAB SAB Ectopic Multiple Livin g Live Births 2 Date Outcome GA Total Labor Labor/2nd/3rd Weight Sex Type Anes PTL Jennifer A1 A5 Name Clin Current Last Filed Vital Signs Vital Sign Reading Time Taken Comments Blood Pressure 92/62 05/08/2024 1:37 PM UNLOADER OPERATOR Pulse 70 05/08/2024 1:37 PM UNLOADER OPERATOR Temperature 36.7 C (98 F) 04/26/2022 9:41 AM UNLOADER OPERATOR Respiratory Rate 16 10/31/2023 12:20 PM CDT Oxygen Saturation 98% 05/08/2024 1:37 PM UNLOADER OPERATOR Inhaled Oxygen Concentration - - Weight 76.3 kg (168 lb 3.2 oz) 05/08/2024 1:37 P M UNLOADER OPERATOR Height 170 cm (5' 6.93) 05/08/2024 1:37 PM UNLOADER OPERATOR Body Mass Index 26.4 05/08/2024 1:37 PM UNLOADER OPERATOR Plan of Treatment Health Maintenance Due Date Last Done Comments HIV for age 15-65 2000 COVID-19 vaccine series (8 - Moderna risk season) 2024 03/15/2024, 04/04/2023, 06/21/2022, Additional history exists BMI (ht and wt on same day) for age 18+ 05/08/2025 05/08/2024, 12/27/2022, 01/05/2022, Additional history exists Depression screening for age 12+ 05/08/2025 05/08/20 24 Pap test for age 21-65 11/18/2025 , 11/18/2020, 10/20/2017, Additional history exists Tetanus booster 05/08/2030 05/08/2020, 11/10, 11/28/2013, Additional history exists RSV vaccine for adults or (1 - 1-dose 75+ series) 2060 Hepatitis B series for 19+ Completed 12/31, 07/23/2003, 06/20/2003, Additional history exists Tdap Completed 05/08/2020, 11/10, 11/28/2013 Hepatitis C screening for ag e 18-79 Completed 01/05/2022 Pneumococcal series for age 6-49 Completed 06/21/19 23 Influenza Vaccine Completed 03/14/2024, , 03/28/2022, Additional history exists Procedures Procedure Name Priority Date/Time Associated Diagnosis Comments ANTI HCV Add On 01/05/2022 9:39 AM CDT Need for hepatitis C screening test SHELTER MONITOR THIN PREP PAP SCREEN IMAGED Routine 11/18/2020 11:39 AM CDT Cervical cancer screening from Last 3 Months or Most Recently Relevant to Health Maintenance Results * ANTI HCV (01/05/2022 9:39 AM CDT) HEPATITIS C ANTIBODY Non-React ras Non-React ras 01/05/2022 5:34 PM CDT [facility] Comment:Antibodies to HCV no t detected; does not exclude the possibility of exposure to HCV. Blood BLOOD SPECIMEN / Unknown Venipuncture / Unknown 01/05/2022 9:39 AM CDT 01/05/2022 9:40 AM CDT us Trisha King MD SEND OUTS Final Resul t [facility] [address] [place] [address], [place] * SHELTER MONITOR THIN PREP PAP SCREEN IMAGED (11/18/2020 11:39 AM CDT) Case Report Gynecologic Cytology Report Case: [id number] Authorizing Provider: Trisha King MD Collected: 11/18/2020 1139 Ordering Location: [facility] Received: 11/18/2020 1205 Clinic First Screen: Terry Carr Specimen: SHELTER MONITOR ThinPrep Vial Screening, Cervical 11/30/2020 4:52 PM CDT [facility] INTERPRETATION/ RESULT NEGATIVE FOR INTRAEPITHELIAL LESION OR MALIGNANCY (NIL) (none) 11/30/2020 4:52 PM CDT [facility] at 1652 CDT SPECIMEN ADEQUACY Satisfactory for evaluation Endocervical component present 11/30/2020 4:52 PM CDT [facility] HPV REQUEST HPV if ASCUS 11/30/2020 4:52 PM CDT [facility] Date of LMP unknown 11/30/2020 4:52 PM CDT [facility] Last Pap Date 10/20/17 11/30/2020 4:52 PM CDT [facility] Last Pap Result NIL 4:52 PM CDT [facility] Abnormal Pap or [place] Bx in last 5 years No 11/30/2020 4:52 PM CDT [facility] Menstrual Status Regular Periods 11/30/2020 4:52 PM CDT [facility] [place] Bx Done Today No 11/30/2020 4:52 PM CDT [facility] Additional Information None given 11/30/2020 4:52 PM CDT [facility] Comment: Cytology is screened at [facility] - [address], [place] [address] and [facility] - [address], [place] [address] and [facility] - [address] [place] [address] Interpreted at [facility] - [address], [place] [address] Automated Review Successful 11/30/2020 4:52 PM CDT [facility] Comment:Specimen processed s uccessfully by automated neck fitter device, ThinPrep Imaging System, [employer] Note The pap test is a screening technique, not a diagnostic procedure. It is used primarily to screen for squamous cancers and precursor lesions. Published studies have shown that it is subject to both false negative and false positive results. The pap test should not be used as the sole means to diagnose or exclude pre-malignant and malignant lesions. 11/30/2020 4:52 PM CDT [facility] Other (Cervical) Non-Blood / Unknown 11/18/2020 11:39 AM CDT 11/18/2020 12:05 PM CDT us Trisha King MD PATHOLOGY/CYTOLOGY Final Re sult [facility] [address] [place] [address], [place] from Last 3 Months or Most Recently Relevant to Health Maintenance Insurance [facility] [place] [address] Care Teams Shelter Monitor Relationship Specialty Start Date End Date Trisha King MD [address] [place], [place] [id number] PCP - General Family Practice 11/03/20
--- OUTSIDE RECORDS SUMMARY | 2024-11-01 01:42 | XMS_ITS | Clinical Summary ---
Author Organization [place] Address [address] [place] [address] Care Team Providers Care Soubrette Name Role Phone Skylar Farley APRN FLEXOGRAPHIC PRESS HELPER Primary Care Provider + Thelma Dia MD Unavailable [phone] Skylar Farley APRN FLEXOGRAPHIC PRESS HELPER Unavailable Allergies Active Allergy Reactions Criticality Noted Date Comments Grass 04/09/2019 Medications levothyroxine (SYNTHROID/LEVOT HROID) 125 MCG tablet TK 1 T PO QD 1 03/24/2019 Active Active Problems Problem Noted Date Diagnosed Date Postoperative hypothyroidism 04/09/2019 Malignant neoplasm of thyroid gland 04/09/2019 Immunizations Immunization Administration Dates Next Due DTaP, Unspecified 09/22/1997 Flu, Unspecified 04/05/2017 Hepatitis B, Adult (Energix-B/Recombivax HB) 06/20/2003 Hepatitis B, Peds (Engerix-B/Recombivax HB) 01/01/2004,07/23/2003,06/20/2003 Historical DTP/aP 10/19/1990, 7,06/13/1986,12/25,1985 Influenza Vaccine >6 months,quad, PF ,03/05/2018,04/05/2017,07/20 MMR (MMRII) 09/22/1997,04/30/1987 Meningococcal (Menomune ) 01/01/2004 Meningococcal ACWY (Menactra ) 01/01/2004 OPV, trivalent, live 04/30/1987,06/13/18 87,1985,10/24 TD,PF 7+ (Tenivac) 09/14/2007,09/22/1997 TDAP Vaccine (Adacel) 11/21/2016,11/28/2013 Td (Adult), Adsorbed 09/22/1997 Social History Tobacco Use Types Packs/Day Years Used Date Smoking Tobacco: Never Smokeless Tobacco: Never Alcohol Use Standard Drinks/Week Comments Yes 0 (1 standard drink = 0.6 oz pur e alcohol) 1-2 glasses wine per day PHQ-2 Answer Date Recorded PHQ-2 Score 0 04/09/2019 Adolescent Education Answer Date Record ed Getting School Help Needed Not on file 03/03 Comments No Sex and Gender Information Value Date Recorded Sex Assigned at Not on file Legal Sex Female 8:17 PM CDT Gender Identity Not on file Sexual Orientation Not on file Last Filed Vital Signs Vital Sign Reading Time Taken Comments Blood Pressure 98/64 04/09/2019 3:13 PM CDT Pulse 68 04/09/2019 3:13 PM CDT Temperature 37.1 C (98.7 F) 04/09/2019 3:13 PM CDT Respiratory Rate 16 04/09/2019 3:13 PM CDT Oxygen Saturation 99% 04/09/2019 3:13 PM CDT Inhaled Oxygen Concentration - - Weight 71.7 kg (158 lb) 04/09/2019 3:13 PM CDT Height 170.2 cm (5' 7) 04/09/2019 3:13 PM CDT Body Mass Index 24.75 04/09/2019 3:13 PM CDT Plan of Treatment Not on file Insurance [facility] Care Teams Soubrette Relationship Specialty Start Date End Date Skylar Farley APRN FLEXOGRAPHIC PRESS HELPER PCP - General Nurse Practitioner - Family 04/01/19 Thelma Dia MD [address] [place] [address] INTERNAL MEDICINE - ENDOCRINOLOGY, DIABETES & METABOLISM 04/12/19 Skylar Farley APRN FLEXOGRAPHIC PRESS HELPER Referring Physician Nurse Practitioner - Family 04/12/19
--- OUTSIDE RECORDS SUMMARY | 2024-11-01 01:42 | XMS_ITS | Continuity of Care Document ---
Author Organization [facility] Address [address] [place] [address] Care Team Providers Care Atg Architect Name Role Phone Elsewhere, Pcp Primary Care Provider Unavailabl e Source Comments Patient records contain information from all sites at [facility]. For routine questions regarding patient records, call [phone] during business hours, M-F 8:00 AM - 5:00 PM Central Time. Record requests for emergency care only can be directed to [phone] at any time.[facility] Encounters Date Type Department Care Team Description 10/28/2024 10:30 AM CDT Routine Department of Obstetrics and Gynecology in [place], [place] [address] [place] [address] Yaa Hou M.D. 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 10/28/2024 Orders Only Department of Obstetrics and Gynecology in [place], [place] [address] [place] [phone] Yaa Hou M.D. 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 Glienke, Mya R, L.P.N. 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 Glucose Tolerance, 3 Hours 10/16/2024 12:45 PM CDT Infusion Department of Infusion Therapy in [place], [place] [address] [place] [phone] Lauren Syed M.D., Ph.D. High Risk (HCC) (Primary Dx); Anemia Discharge Disposition: Home or Self Care 10/16/2024 8:00 AM CDT Lab Division of Endocrinology in [place], [place] [address] [place] [phone] Yaa Hou M.D. High Risk (HCC) 10/14/2024 Results Follow-Up Department of Obstetrics and Gynecology in [place], [place] [address] [place] [phone] Yaa Hou M.D. CBC without Differential, S-TSH (Thyroid-Stimulat ing Hormone - Sensitive), Glucose Tolerance Test, 1 hour, Additional followed-up results: 2 10/14/2024 11:00 AM CDT Clinical Support Department of Physical Medicine and Rehabilitation in [place], [place] [address] [place] [address] Yaa Hou M.D. Nelson, Jennifer M, P.T., D.P.T. 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HCC); Weakness General 10/14/2024 9:30 AM CDT Routine Department of Obstetrics and Gynecology in [place], [place] [address] [place] [phone] Yaa Hou M.D. 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HCC) (Primary Dx); Hypothyroidism Postsurgical; Sleep Apnea Unspecified; Depression Anxiety; Type O Blood Rhesus Negative; Multigravida Advanced Maternal Age Affecting Management (HCC); Abnormal Ultrasound Placenta 10/14/2024 7:30 AM CDT - 10/14/2024 11:59 PM CDT Hospital Encounter Department of Obstetrics and Gynecology in [address] [address] Megan Colunga M.D. Twins (HCC); Hypothyroidism Discharge Disposition: Home or Self Care 10/03/2024 4:40 PM CDT Office Visit Department of Dermatology in [address] [address] Bret Toledo M.D., M.B.A. Screening Examination Skin Cancer (Primary Dx); Keratosis Seborrheic; Dermatoheliosis; Angioma Mccormick; Nevi Multiple; Melanoma Family History 10/01/2024 9:45 AM CDT Clinical Communication Virtual Review in [address] [address] Pre-visit Intake 09/12/2024 Orders Only Department of Obstetrics and Gynecology in [address] [address] Amalia Canela, R.Deven. 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HCC) (Primary Dx) 09/12/2024 10:00 AM CDT Routine Department of Obstetrics and Gynecology in [address] [address] Khalida Servin M.D., Ph.D. 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HCC) Discharge Disposition: Home or Self Care 08/27/2024 Clinical Communication Department of Obstetrics and Gynecology in [place], [place] [address] [place] [address] Yaa Hou M.D. 08/26/2024 Orders Only Department of Obstetrics and Gynecology in [place], [place] [address] [place] [phone] Megan Colunga M.D. 08/26/2024 Refill Department of Obstetrics and Gynecology in [place], [place] [address] [place] [phone] Megan Colunga M.D. Med Refill 08/26/2024 8:00 AM CDT Comprehensive Visit Department of Obstetrics and Gynecology in [place], [place] [address] [place] [address] Yaa Hou M.D. Weakness General (Primary Dx); 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HCC) 08/26/2024 9:00 AM CDT Routine Department of Obstetrics and Gynecology in [place], [place] [address] [place] [address] Megan Colunga M.D. Twins (HCC) (Primary Dx); Hypothyroidism; Hypothyroidism Postsurgical; Type O Blood Rhesus Negative 08/08/2024 8:30 AM FACULTY NEUROPSYCHOLOGIST Telemedicine Department of Nutrition and Diabetes Education in [place], [place] [address] [place] [phone] Yaa Hou M.D. McWaters, Abby R, M.S., RDN, LD 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HCC) 07/29/2024 3:00 PM FACULTY NEUROPSYCHOLOGIST Telemedicine Department of Obstetrics and Gynecology in [place], [place] [address] [place] [address] Alea Castro M.D. Rust, Laura M M.SDemi, [facility] Counseling Genetic For Family Planning (Primary Dx); 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HCC) 07/23/2024 Results Follow-Up Department of Obstetrics and Gynecology in [place], [place] [address] [place] [phone] Yaa Hou M.D. S-TSH (Thyroid-Stimulat ing Hormone - Sensitive), T4 (Thyroxine), Free 07/23/2024 Results Follow-Up Department of Obstetrics and Gynecology in [address] [address] Yaa Hou M.D. Type and Screen (with Reflex Antibody ID), Ferritin 07/23/2024 10:30 AM FACULTY NEUROPSYCHOLOGIST Routine Department of Obstetrics and Gynecology in [place], [place] [address] [place] [phone] Lauren Syed M.D., Ph.D. Mary Regalado R.N., CLC 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HCC) (Primary Dx) 07/23/2024 10:00 AM FACULTY NEUROPSYCHOLOGIST Initial Department of Obstetrics and Gynecology in [address] [address] Yaa Hou M.D. GA: 13w3d 07/23/2024 7:22 AM FACULTY NEUROPSYCHOLOGIST - 07/23/2024 11:59 PM FACULTY NEUROPSYCHOLOGIST Hospital Encounter Department of Obstetrics and Gynecology in [place], [place] [address] [place] [address] Yaa Hou M.D. Twin (HCC) Discharge Disposition: Home or Self Care 07/22/2024 Orders Only Department of Obstetrics and Gynecology in [address] [address] Brittny Sheppard, R.N. 07/10/2024 Clinical Communication Department of Obstetrics and Gynecology in [address] [address] Prescheduling, Provider Triage 07/10/2024 1:00 PM FACULTY NEUROPSYCHOLOGIST Telemedicine Department of Obstetrics and Gynecology in [address] [address] Judi Diamond, R.N. 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HCC) (Primary Dx) 06/27/2024 Orders Only Division of Endocrinology in [address] [phone] Manasa Zapata APRN, C.N.P., D.N.P. 06/25/2024 Orders Only Division of Endocrinology in [place], [place] [address] [place] [phone] External, Ordering ProviderDakota 03/21/2024 9:00 AM CDT Office Visit Division of Endocrinology in [place], [place] [address] [place] [phone] Manasa Zapata APRN, C.N.Ren, D.N.P. Malignant Neoplasm Of Thyroid Papillary (HCC) 03/20/2024 1:06 PM CDT - 03/20/2024 1:36 PM CDT Hospital Encounter Department of Laboratory Medicine and Pathology, [facility] in [place], [place] [address] [place] [phone] Flor Frey M.D. Malignant Neoplasm Of Thyroid Papillary (HCC) Discharge Disposition: Home or Self Care 03/20/2024 1:37 PM CDT - 03/20/2024 11:59 PM CDT Hospital Encounter Department of Radiology, [facility] in [place], [place] [address] [place] [phone] Flor Frey M.D. Malignant Neoplasm Of Thyroid Papillary (HCC) Discharge Disposition: Home or Self Care 03/19/2024 11:00 AM CDT Clinical Communication Virtual Review in [address] [address] Pre-visit Intake 01/23/2024 10:00 AM CDT Clinical Communication Virtual Review in [address] [address] Pre-visit Intake 10/25/2023 Clinical Communication Division of Endocrinology in [place], [place] [address] [place] [phone] Flor Frey M.D. Appt Request 01/18/2023 8:30 AM CDT Clinical Communication Virtual Review in [address] [address] Pre-visit Intake 01/03/2023 11:39 AM CDT - 01/03/2023 12:05 PM CDT Hospital Encounter Department of Laboratory Medicine and Pathology, [facility] in [place], [place] [address] [place] [address] Flor Frey M.D. Malignant Neoplasm Of Thyroid Papillary (HCC) Discharge Disposition: Home or Self Care 01/03/2023 4:00 PM CDT Office Visit Division of Endocrinology in [place], [place] [address] [place] [phone] Flor Frey M.D. Malignant Neoplasm Of Thyroid Papillary (HCC) 01/03/2023 12:06 PM CDT - 01/03/2023 11:59 PM CDT Hospital Encounter Department of Radiology, [facility] in [place], [place] [address] [place] [phone] Flor Frey M.D. Malignant Neoplasm Of Thyroid Papillary (HCC) Discharge Disposition: Home or Self Care 01/03/2023 10:00 AM CDT Office Visit Department of Dermatology in [address] [address] Emmanuel Thao M.D. Nevi Multiple (Primary Dx); Keratosis Seborrheic; Dermatoheliosis 01/02/2023 8:30 AM CDT Clinical Communication Virtual Review in [place], [place] [address] [place] [address] Pre-visit Intake 07/13/2022 Clinical Communication Division of Endocrinology in [place], [place] [address] [place] [phone] Flor Frey M.D. Follow-up Orders 10/28/2021 8:10 AM CDT Anesthesia Event [facility] OR [address] [place] [address] Tim Samano M.D., J.D. [place], M.S.N., R.N. 10/28/2021 8:00 AM CDT - 10/28/2021 10:24 AM CDT Surgery [facility] OR [address] [place] [address] Syl Oliva M.D. THYROIDECTOMY, LOBECTOMY, COMPLETION. 10/28/2021 6:01 AM CDT - 10/28/2021 1:48 PM CDT Hospital Encounter Outpatient Surgery Unit in [place], [place] [address] [place] [phone] Syl Oliva M.D. Malignant Neoplasm Of Thyroid Papillary (HCC) Discharge Disposition: Home or Self Care 10/26/2021 9:30 AM CDT Lab Urgent Care in [place], [place] [address] [place] [address] Spencer Vieyra D.O. Encounter For Screening For Other Viral Diseases (COVID-19) 10/14/2021 11:20 AM CDT Ancillary Procedure Department of Otorhinolaryngology 10/14/2021 10:45 AM CDT Diagnostic Department of Otorhinolaryngology in [place], [place] [address] [place] [phone] Marcello Mahmood APRN C.N.P., M.S.N. Vocal Cord Exam (Primary Dx) 10/13/2021 Clinical Communication Department of Otorhinolaryngology in [place], [place] [address] [place] [phone] Pierce Lozano 10/13/2021 Clinical Communication Department of Otorhinolaryngology in [place], [place] [address] [place] [phone] Pierec Lozano 10/13/2021 Orders Only Division of Endocrine and Metabolic Surgery in [address] [address] Syl Oliva M.D. Malignant Neoplasm Of Thyroid Papillary (HCC) (Primary Dx) 10/13/2021 10:00 AM CDT Comprehensive Visit Division of Endocrine and Metabolic Surgery in [place], [place] [address] [place] [phone] Syl Oliva M.D. Ryder, Mabel, M.D. Malignant Neoplasm Of Thyroid Papillary (HCC) 10/12/2021 9:39 AM CDT - 10/12/2021 10:27 AM CDT Hospital Encounter Department of Radiology, [place], in [address] [address] Flor Frey M.D. Wall, Darci J, M.D. Malignant Neoplasm Of Thyroid Papillary (HCC) Discharge Disposition: Home or Self Care 10/04/2021 11:00 AM CDT Office Visit Division of Endocrinology in [address] [address] Flor Frey M.D. Malignant Neoplasm Of Thyroid Papillary (HCC) (Primary Dx) 10/01/2021 11:50 AM CDT - 10/01/2021 12:25 PM CDT Hospital Encounter Department of Laboratory Medicine and Pathology, [address] [address] Flor Frey M.D. Malignant Neoplasm Of Thyroid Papillary (HCC) Discharge Disposition: Home or Self Care 10/01/2021 12:26 PM CDT - 10/01/2021 11:59 PM CDT Hospital Encounter Department of Radiology, [address] [address] Flor Frey M.D. Malignant Neoplasm Of Thyroid Papillary (HCC) Discharge Disposition: Home or Self Care 09/30/2021 1:45 PM CDT Clinical Communication Virtual Review in [address] [address] Pre-visit Intake 06/15/2021 Refill Division of Endocrinology in [address] [address] Flor Frey M.D. Med Refill (levothyroxine) 02/08/2021 7:00 AM CDT - 02/08/2021 7:14 AM CDT Hospital Encounter Department of Laboratory Medicine and Pathology, [address] [address] Flor Frey M.D. Malignant Neoplasm Of Thyroid Papillary (HCC) Discharge Disposition: Home or Self Care 02/08/2021 7:15 AM CDT - 02/08/2021 11:59 PM CDT Hospital Encounter Department of Radiology, [facility] in [place], [place] [address] [place] [address] Flor Frey M.D. Malignant Neoplasm Of Thyroid Papillary (HCC) Discharge Disposition: Home or Self Care 02/08/2021 11:00 AM CDT Office Visit Division of Endocrinology in [place], [place] [address] [place] [address] Flor Frey M.D. Malignant Neoplasm Of Thyroid Papillary (HCC) (Primary Dx) 12/04/2020 11:00 AM CDT Office Visit Department of Dermatology in [place], [place] [address] [place] [address] Geeta David M.D., Ph.D. Keratosis Seborrheic (Primary Dx); Nevi Multiple; Dermatoheliosis; Scar 10/02/2020 Clinical Communication Division of Endocrinology in [place], [place] [address] [place] [address] Flor Frey M.D. 08/18/2020 3:30 PM FACULTY NEUROPSYCHOLOGIST Office Visit Division of Endocrinology in [place], [place] [address] [place] [address] Flor Frey M.D. Malignant Neoplasm Of Thyroid Papillary (HCC) (Primary Dx) 08/17/2020 10:18 AM FACULTY NEUROPSYCHOLOGIST - 08/17/2020 11:59 PM FACULTY NEUROPSYCHOLOGIST Hospital Encounter Department of Laboratory Medicine and Pathology, [facility] in [place], [place] [address] [place] [address] Flor Frey M.D. Malignant Neoplasm Of Thyroid Papillary (HCC) Discharge Disposition: Home or Self Care 08/17/2020 10:15 AM FACULTY NEUROPSYCHOLOGIST - 08/17/2020 10:17 AM FACULTY NEUROPSYCHOLOGIST Hospital Encounter Department of Radiology, [facility], in [place], [place] [address] [place] [address] Flor Frey M.D. Malignant Neoplasm Of Thyroid Papillary (HCC) Discharge Disposition: Home or Self Care 06/22/2020 Refill Division of Endocrinology in [place], [place] [address] [place] [address] Flor Frey M.D. Med Refill 05/29/2020 Clinical Communication Division of Endocrinology in [place], [place] [address] [place] [address] Flor Frey M.D. COVID Inquiry 04/24/2020 Clinical Communication Division of Endocrinology in [place], [place] [address] [place] [address] Flor Frey M.D. 02/27/2020 Clinical Communication Division of Endocrinology in [place], [place] [address] [place] [phone] Flor Frey M.D. 02/10/2020 8:00 AM CDT Office Visit Department of Dermatology in [place], [place] [address] [place] [phone] Geeta David M.D., Ph.D. Malignant Neoplasm Of Thyroid Papillary (HCC) (Primary Dx); Keratosis Seborrheic; Nevi Multiple; Melanoma Family History 02/07/2020 Clinical Communication Department of Dermatology in [place], [place] [address] [place] [phone] Geeta David M.D., Ph.D. COVID Inquiry 01/21/2020 Clinical Communication Division of Endocrinology in [place], [place] [address] [place] [phone] Flor Frey M.D. 10/31/2019 Clinical Communication Division of Endocrinology in [place], [place] [address] [place] [phone] Flor Frey M.D. 10/30/2019 Clinical Communication Division of Endocrinology in [place], [place] [address] [place] [address] Flor Frey M.D. Standing orders 07/25/2019 9:50 AM FACULTY NEUROPSYCHOLOGIST - 07/25/2019 10:23 AM [facility] Hospital Encounter Department of Laboratory Medicine and Pathology, [facility], in [place], [place] [address] [place] [address] Flor Frey M.D. Malignant Neoplasm Of Thyroid Papillary (HCC) Discharge Disposition: Home or Self Care 07/25/2019 10:24 AM FACULTY NEUROPSYCHOLOGIST - 07/25/2019 11:59 PM FACULTY NEUROPSYCHOLOGIST Hospital Encounter Department of Radiology, [facility], in [place], [place] [address] [place] [address] Flor Frey M.D. Malignant Neoplasm Of Thyroid Papillary (HCC) Discharge Disposition: Home or Self Care 07/25/2019 3:30 PM FACULTY NEUROPSYCHOLOGIST Office Visit Division of Endocrinology in [place], [place] [address] [place] [address] Flor Frey M.D. Malignant Neoplasm Of Thyroid Papillary (HCC) (Primary Dx) 06/27/2019 Refill Division of Endocrinology in [place], [place] [address] [place] [address] Flor Frey M.D. Med Refill 05/02/2019 Orders Only Division of Endocrinology in [place], [place] [address] [place] [address] Flor Frey M.D. Malignant Neoplasm Of Thyroid Papillary (HCC) (Primary Dx) 02/22/2019 Clinical Communication Department of Dermatology in [place], [place] [address] [place] [address] Marcello Adamson RSusan 01/25/2019 10:05 AM CDT Ancillary Procedure Department of Dermatology 01/25/2019 9:30 AM CDT Comprehensive Visit Department of Dermatology in [address] [place] [address] Geeta David M.D., Ph.D. Nevi Multiple (Primary Dx); Melanoma Family History; Lesion Skin Leg; Dermatoheliosis 09/25/2018 10:35 AM CDT - 09/25/2018 11:59 PM CDT Hospital Encounter Department of Radiology, [facility], in [place], [place] [address] [place] [address] Flor Frey M.D. Malignant Neoplasm Of Thyroid (HCC) Discharge Disposition: Home or Self Care 09/25/2018 10:30 AM CDT - 09/25/2018 10:34 AM CDT Hospital Encounter Department of Laboratory Medicine and Pathology, [facility] in [place], [place] [address] [place] [address] Flor Frey M.D. Malignant Neoplasm Of Thyroid (HCC) Discharge Disposition: Home or Self Care 09/25/2018 3:30 PM CDT Office Visit Division of Endocrinology in [place], [place] [address] [place] [address] Flor Frey M.D. Malignant Neoplasm Of Thyroid Papillary (HCC) (Primary Dx) 07/20/2018 9:35 AM FACULTY NEUROPSYCHOLOGIST Ancillary Procedure Department of Dermatology 07/20/2018 8:50 AM FACULTY NEUROPSYCHOLOGIST Office Visit Department of Dermatology in [place], [place] [address] [place] [address] Pierce Stiles M.D. Melanoma Family History (Primary Dx); Malignant Neoplasm Of Thyroid Papillary (HCC); Dermatitis Hand; Angioma Mccormick 07/04/2018 Clinical Communication Division of Endocrinology in [place], [place] [address] [place] [address] Flor Frey M.D. 06/26/2018 Refill Division of Endocrinology in [place], [place] [address] [place] [address] Flor Frey M.D. Med Refill 06/01/2018 Clinical Communication Division of Endocrinology in [place], [place] [address] [place] [phone] Carolina Croft R.N. 06/01/2018 Orders Only Division of Endocrinology in [place], [place] [address] [place] [phone] Flor Frey M.D. 12/21/2017 Orders Only Department of Oncology in [place], [place] [address] [place] [phone] Flor Frey M.D. Malignant Neoplasm Of Thyroid (HCC) (Primary Dx) 12/18/2017 9:22 AM CDT - 12/18/2017 10:57 AM CDT Hospital Encounter Department of Radiology, [facility], in [place], [place] [address] [place] [address] Flor Frey M.D. Malignant Neoplasm Of Thyroid Papillary (HCC) Discharge Disposition: Home or Self Care 12/07/2017 11:20 AM CDT - 12/07/2017 11:59 PM CDT Hospital Encounter Department of Laboratory Medicine and Pathology, [facility] in [place], [place] [address] [place] [address] Flor Frey M.D. Malignant Neoplasm Of Thyroid (HCC) Discharge Disposition: Home or Self Care 12/07/2017 9:58 AM CDT - 12/07/2017 11:19 AM CDT Hospital Encounter Department of Radiology, [facility] in [place], [place] [address] [place] [address] Flor Frey M.D. Malignant Neoplasm Of Thyroid (HCC) Discharge Disposition: Home or Self Care 12/07/2017 3:30 PM CDT Office Visit Division of Endocrinology in [place], [place] [address] [place] [address] Flor Frey M.D. Malignant Neoplasm Of Thyroid Papillary (HCC) (Primary Dx) 10/02/2017 Abstract DATA ABSTRACTION Provider, Historical 09/21/2017 Orders Only Division of Endocrinology in [place], [place] [address] [place] [address] Flor Frey M.D. Malignant Neoplasm Of Thyroid (HCC) 12/16/2016 4:35 PM CDT Telemedicine Department of Dermatology 04/21/2015 8:25 AM FACULTY NEUROPSYCHOLOGIST - 04/22/2015 12:53 PM FACULTY NEUROPSYCHOLOGIST Hospital Encounter HX [facility]ST [facility] 6C 04/21/2015 7:04 AM FACULTY NEUROPSYCHOLOGIST - 04/21/2015 11:59 PM FACULTY NEUROPSYCHOLOGIST Hospital Encounter HX NO MAPPING Allergies No known active allergies Medications magnesium oxide (MAG-OX) 250 mg of magnesium tablet Take 250 mg by mouth daily as needed. Active dfqcnpq-Cn-yawl- FA (Vinate One) 60 mg iron-1 mg per tablet Take 1 tablet by mouth daily. Active omega 4-etx-vio-fish oil 1,000 mg (120 mg-180 mg) capsule Take by mouth. Active folic acid 800 mcg tablet Take 800 mcg by mouth daily. Active aspirin [address] tablet Take 1 tablet (81 mg total) by mouth daily. 5 01/26/20 25 Active iron,carbonyl-vi tamin C (Vitron-C) 65 mg iron- [address] tablet Take 1 tablet (65 mg of iron total) by mouth daily. Do not crush or chew. 70 tablet 3 5 Active omeprazole (PriLOSEC) [address] capsule Take 1 capsule (40 mg total) by mouth daily before morning meal. 90 capsule 3 5 Active levothyroxine 200 mcg tablet Take 1 tablet (200 mcg total) by mouth daily before morning meal. 90 tablet 3 5 Active FLUoxetine (PROzac) 20 mg capsuleIndicatio ns: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HCC),Multigravi da Advanced Maternal Age Affecting Management (HCC),Abnormal Ultrasound Placenta Take 1 capsule (20 mg total) by mouth daily. 90 capsule 1 5 04/12/20 Active FLUoxetine (PROzac) 40 mg capsule Take 1 capsule (40 mg total) by mouth daily. 90 capsule 1 5 10/15/19 Discontinu ed(Dose adjustment ) Hospital, Clinic, or Other Facility Administered Medication Ordered Dose Route Frequency Start Date End Date Status glucose chewable tablet 4 tabletIndications:High Risk (HCC) 4 tablet oral As needed 10/16/2024 10/16/2024 Ended sodium chloride 0.9 % injection 10 mL 10 mL IV As needed 10/16/2024 10/16/2024 Ended Active Problems Patient Care Coordination No te Formatting of this note migh t be different from the original. Seen by Dr. Servin for MFM consult on 09/12/24 will be followed by [facility]. Initial visit completed in [facility]. Transfer from [place] Delivery plan: chart: Care Team/nursing team: [facility] Dr. Hou/ MFM Dr. Servin Partner name: Bennett Pertinent medical issues for management (just critical diagnoses for ): Marlen twins, AMA /Maternal Board plans indicated: (yes or no) Genetic testing at delivery: Antepartum: Additional consults needed/completed: Echo - John - Anesthesia - Tour - Genetics -completed Priscilla ( both antibody of girls not completed) Social Work - COVID: Flu Shot: Rhogam: Will need O- Tdap: Rubella/Varicella status: +/+ 28 week labs: PHQ 9: 07/23/24 1 GBS: Labor/Delivery Plan: Contraception plan: Education: NOB - completed 07/23/24 Early - completed 07/23/24 Mid - Late - Problem Noted Date Diagnosed Date High Risk 10/15/2024 Anemia 10/15/2024 Abnormal Ultrasound Placenta 10/15/2024 Overview (10/15/2024): Circumvallate placenta noted for twin B on earlier ultrasound but not commented on with subsequent ultrasounds Assessment & Plan (10/15/2024 6:45 PM CDT): We reviewed again that circumvallate placenta is associated with reduced growth but that this is not always present. Due to her twin gestation we will be monitoring growth on a monthly basis so would identify if growth of twin B is negatively impacted Multigravida Advanced Matern al Age Affecting Management 10/15/2024 Overview (10/15/2024): UNITY testing reported as low risk per patient Assessment & Plan (10/15/2024 6:38 PM CDT): Will start testing slightly earlier based on age. Twin Dichorionic Diamniotic 07/23/2024 Overview (10/15/2024): MFM consultation reviewed US at 13 weeks [...] delivery at 37 0/7 -6/7 Assessment & Plan (10/28/2024 11:34 AM CDT): She presents today for RhoGAM and Tdap. [...] both twins and visually confirmed with mom. Assessment & Plan (10/15/2024 6:34 PM CDT): Appropriate concordant growth on ultrasound today. Continuing efforts to complete detailed anatomy scan Discussed timing of delivery. At this time we would not have an indication to actively deliver before 37 weeks gestation. Rationale discussed Assessment & Plan (07/23/2024 1:33 PM FACULTY NEUROPSYCHOLOGIST): MFM consult pending. With twin , virtually all complication of are roughly doubled including IUGR, labor and delivery, GHTN, GDM, anemia, operative delivery. Current plan of care to be added to care as discussed above with updates per MFM. Hypothyroidism Postsurgical 07/23/2024 Overview (08/26/2024): 08/26/24: TSH 1.4, remains on 200 mcg levothyroxine s/p 2 surgical resections (now complete) due to papillary thyroid cancer Started on levothyroxine 200 mcg daily in first trimester. Prepregnancy on 175 mcg levothyroxine daily Assessment & Plan (10/15/2024 6:31 PM CDT): Follow-up thyroid testing ordered for today Type O Blood Rhesus Negative 07/23/2024 Overview (10/28/2024): Planning Rhogam as indicated Rhogam received 10/28/2024 Cell free DNA screening did not evaluate Rh status in twins. Assessment & Plan (10/15/2024 6:36 PM CDT): RhoGAM injection visit ordered Depression Anxiety 07/23/2024 Overview (07/23/2024): Has been stable on fluoxetine Wellbutrin discontinued with diagnosis (started for weight management) Assessment & Plan (10/15/2024 6:37 PM CDT): We had discussed titrating her fluoxetine up to 40 mg daily. Her symptoms improved so she did not end up increasing the dose. We discussed that this option remains during and Assessment & Plan (07/23/2024 5:03 PM FACULTY NEUROPSYCHOLOGIST): We discussed information regarding fluoxetine in . Risks and benefits of continuing versus discontinuing need to take an account maternal health and outcomes in addition to concerns. For people who are stable on a given SSRI we generally recommend continuing this in . Discussed that dosage titration up is sometimes is required in . Malignant Neoplasm Of Thyroid Papillary 04/06/20 15 Cancer Staging:Clinical stage from 04/21/2015:Stage I(T1b, N1a, M0) - Signed by Flor Frey M.D. on 12/11/2017 Overview (01/03/2023): Papillary thyroid cancer, s/p right lobectomy by Ronn Lazaro 04/21/2015 T1b N1a M0 stage I, MACIS 3.46 Subclinical hypothyroidism post op, started on levothyroxine Persistent, nonspecific nodules on US, s/p US-FNA + Tg washout 2017 = benign S/p completion thyroidectomy October 2021 for suspicious nodule(s), final path = left lobe benign; 1 LN micro-met (0.74 mm) left neck Assessment & Plan (07/23/2024 1:47 PM FACULTY NEUROPSYCHOLOGIST): No evidence of disease Assessment & Plan (01/03/2023 4:30 PM CDT): Jayne returns for annual surveillance; feeling well; family stressors the past year, hopefully improved outcomes moving forward (shgrtf-vs-vxn of cancer, unexpected, Bennett had seizures) Kids doing well, Chhaya 6 years now. She went back to [facility] during rashid We reviewed her labs, TSH at goal (0.3-3s); pending Tg; reviewed US - TEMITOPE Plan RTC 1 year, myself or CUSTOMER SUPPORT AGENT Excellent prognosis; now with completed surgery and minimal disease at pathology Assessment & Plan (10/04/2021 11:45 AM CDT): Jayne returns for follow up; Bennett traveling; in-laws with son in lobby today; she feels well; some fatigue but related to 2 young kids at home. Chhaya is 5; son is 15 months; they are thinking of 3rd child We reviewed her US and labs; the US shows possible new 6 mm nodule next to the 1 cm suspicious nodule; stable indeterminate LN in lateral neck as well as level 7 We discussed her goals of care and at home; she /Bennett are contemplating 3rd child; she'd like to simplify thyroid disease and follow up We discussed different strategies of follow up/surveillance vs FNA of left thyroid and level 2/3 LN and then surgery She elects FNA and surgery of left thyroid; the LN, if benign, surveillance Plan US-FNA left thyroid lobe and US-FNA with Tg reflex of left lateral neck LN with tiny echogenic focus Endocrine surgery consult Post op, can RTC 9 months; but will review path results and send message via portal Assessment & Plan (02/08/2021 12:05 PM CDT): Jayne presents for follow up, unaccompanied today; overall doing well, definite fatigue as she has 7 month old and 3 year old at home and mostly been traveling in January Otherwise, no worrisome neck symptoms Exam: alert and oriented; no palpable neck nodules; no LAD We reviewed her TSH ,at goal; and her US - overall stable, suspicious left upper lobe nodule and stable, non-enlarged LN left lateral neck with possible echogenic foci Left upper lobe nodule has been present since 2018 and remains under 1 cm; commented by radiologist is more prominent this visit but my estimation is not markedly different than prior We discussed surveillance vs. FNA and surgery if positive and she asked about surgical specialties, ENT vs endocrine surgery After a detailed discussion, plan for now is surveillance but if she changes her mind, she'll get in touch for FNA and possible surgery consult RTC 6 months or sooner if she'd like US-FNA left upper lobe and LN FNA and if positive, surgery consultation Assessment & Plan (08/18/2020 5:42 PM FACULTY NEUROPSYCHOLOGIST): Jayne and Bennett return for follow up; they have a now, Heath, and 3 year old Chhaya; overall, Jayne is tired, had mastitis but recovering No new or worrisome neck symptoms Exam: alert and oriented; no palpable neck nodules; no LAD We reviewed her labs and imaging; the imaging is grossly stable; there is suspicious left level 3/4 node but not changed/grown in size, reassuring! We discussed US-FNA now vs observation; given the new born baby; she elects repeat US later this year and reassess Monitor TSH for now, repeat in 1-2 months Assessment & Plan (07/25/2019 4:18 PM FACULTY NEUROPSYCHOLOGIST): Jayne and Bennett return for follow up, doing well, daughter Chhaya 2 1/2; they are selling condo and buying home; would like 2nd child/ this year perhaps; she had miscarriage 6 mo after initial surgery prior No new or worrisome symptoms Exam: alert and oriented; no palpable neck nodules; no LAD; CVR - regular, no murmur; We reviewed her labs and US; the [address] are more prominent this time and have echogenic foci, suspicious for possible LN mets; but unclear Right bed without worrisome features and left lobe with suspicious appearing micronodule also stable We reviewed next steps; she would like to delay any surgery for now; understanding this may represent thyroid cancer; there is no evidence of rapid growth or change; and after 5 years, these are the only 2 nodes present; thus overall, if disease, low volume and slowly progressive Options are US-FNA now and surgery vs surveillance and reassess in 9 months ; she elects time to think about it, but Ok with setting up 9 month return visit for now Plan RTC 9 month; sooner if she would like US-FNA Reassurance overall, this is manageable Assessment & Plan (09/25/2018 3:57 PM CDT): Clinically, Jayne is doing well, no worrisome symptoms; accompanied by Bennett today Torri is 22 months old, doing well Neck US - ongoing nonspecific, ?mildly suspicious nodes per US report, my review is reassuring with small, nonspecific nodes TSH 1.3 on 125 mcg levothyroxine Exam - no palpable thyroid bed nodules, no LAD; lungs clear, CVR regular Plan Reviewed US images together - unclear etiology of neck nodules but small and not clinically worrisome overall Recommend ongoing surveillance with RTC 9 months She and Bennett considering a 2nd child; we discussed increasing levothyroxine dose and monitoring TSH levels during Patient, reassured overall Assessment & Plan (12/11/2017 12:11 PM CDT): Assessment: Neck US - nonspecific nodes in neck, 1 increased in size, pending US-FNA US: Two midline hypoechoic nodules with slight interval increase in the larger nodule now measuring 1.1 x 0.7 x 1.7 cm, recommend correlation with fine-needle aspiration versus close attention on follow-up. Stable 0.5 cm hypoechoic nodule in the upp Plan: US-FNA of 1.1 cm nodule above; if positive, would refer likely for completion thyroidectomy and arnol dissection Relayed to patient/, prognosis remains excellent, even if this is a small arnol recurrence, quite amenable to therapy, with either surveillance, UPEA vs surgery Patient elects biopsy rather than surveillance alone Relay results via phone or portal If FNA negative, ~RTC 9-12 months Sleep Apnea Unspecified Overview (10/15/2024): Wearing CPAP regularly Asked her to bring CPAP with her to the hospital for any admissions Assessment & Plan (10/15/2024 6:46 PM CDT): With recent URI she had difficulty breathing overnight. She believes that this caused an increase in anxiety. She is feeling much better now that her breathing has improved.. She did not end up increasing her fluoxetine dose. Assessment & Plan (07/23/2024 1:31 PM FACULTY NEUROPSYCHOLOGIST): Discussed option of semi-Sun's position. Consider discussing mask options with CPAP provider. Adequate treatment of sleep apnea in especially a twin gestation is expected to optimize outcome. Estimated Date of Delivery Comme nts Yes 01/25/2025 Based on Ultraso und Resolved Problems Problem Noted Date Diagnosed Date Resolved Date Abnormal Ultrasound Placenta 07/23/2024 09/12/2024 Overview (07/23/2024): Probable circumvallate placenta twin B, maternal right Advanced level ultrasound pending Serial ultrasounds for growth will be occurring due to twin gestation Assessment & Plan (07/23/2024 1:35 PM FACULTY NEUROPSYCHOLOGIST): Discussed circumvallate placenta. This can be associated with an increased risk of growth restriction though this is not a certainty. At this time it will not change plan for serial ultrasounds for growth due to twin gestation. Immunizations Immunization Administration Dates Next Due DTP 10/19/1990, 7,06/13/1986,1985,1985 DTaP, Unspecified 09/22/1997 HepB Adult 06/20/2003 HepB Pediatric/Adolescent 01/01/2004,07/23/2003, 06/20/2003 MCV4 (Menactra)(Discontinued) 01/01/2004 MMR 10/10/1997,09/22/1997,04/30/1987 MPSV4 01/01/2004 OPV 04/30/1987, 7,1985,1985 PCV20 06/21/2022 Rho (D) Immune Globulin (IM only) 10/28/2024 Td (Adult), adsorbed 09/22/1997 Td Preservative Free (TENIVA C, DECAVAC) 09/14/2007,09/22/1997 Td, (Adult) Unspecified 09/14/2007,10/10/1997 Tdap 10/28/2024, 0,11/21/2016,2013,09/22/1997 influenza trivalent vaccine (6 months and older)(PF) 03/14/2024 influenza vaccine quad (FLUZONE/FLUARIX) (6 months and older)(PF) 03/20/2023,03/28/2022,03/17/2021,2019,03/06/2019,03/05/2018,04/05/2017,0 07/20/2016 Family History Medical History Relation Name Comments No Known Problems Daughter Atrial fibrillation Father Sleep apnea Father Dementia Maternal Grandfather Lymphoma Maternal Grandmother nicolas mejia Brain Aneurysm Mother Meniere's disease Mother Breast cancer Mother's Sister 1 nader kazeck Melanoma Mother's Sister 2 eve barrow Breast cancer Mother's Sister 3 nader kaze[place] Melanoma Mother's Sister 4 eve barrow Breast cancer Mother's Sister 5 Nader kaze[place] Skin cancer Mother's Sister 6 Eve b[place] Emphysema Paternal Grandfather Smoker Paternal Grandfather Ovarian cancer Paternal Grandmother araceli griesert Stroke Paternal Grandmother araceli morris No Known Problems Sister No Known Problems Son Relation Name Status Comments Daughter Alive Father Alive Maternal Grandfather Alive Maternal Grandmother nicolas mejia Alive Mother Alive Mother's Sister 1 naderbryanna garretteck Mother's Sister 2 eve barrow Mother's Sister 3 nader kazeck Alive Mother's Sister 4 eve barrow Alive Mother's Sister 5 Nader kazeck Alive Mother's Sister 6 Eve barrow Alive Other Fetus - In Utero di-di twins Paternal Grandfather Paternal Grandmother araceli morris Alive Sister Alive Son Alive Social History Smoking Status as of 11/01/2024 Tobacco Use Types Packs/Day Years Used Date Smoking Tobacco: Never Assessed [facility] Utilities Answer Date Recorded In the past 12 months has [employer], gas, oil, or water company threatened to [...] often do you attend chur ch or adventism services? Never 07/23/2019 Do you belong to any clubs o r organizations such as cheondoism groups, unions, fraternal or athletic groups, or [...] Answer Date Recorded PHQ-2 Score 0 07/23/2024 [facility] [place] of Occupat ional Health - Occupational Stress [...] your living situation today? I have a [facility] place to live 07/10/2024 Education Answer Date Recorded What is the highest level of school you have completed or the highest degree you have received? Bachelor's degree (e.g., BA, AB, BS) 07/23/2019 Sex and Gender Information Value Date Recorded Sex Assigned at Female 12/07/2017 3:47 PM CDT Legal Sex Female 4:23 AM FACULTY NEUROPSYCHOLOGIST Gender Identity Female 12/07/2017 3:47 PM CDT Sexual Orientation Straight 12/07/2017 3: 47 PM CDT Last Filed Vital Signs Vital Sign Reading Time Taken Comments Blood Pressure 92/57 10/28/2024 10:32 AM CDT Pulse 91 10/28/2024 10:32 AM CDT Temperature 36.8 C (98.2 F) 10/16/2024 12:23 PM CDT Respiratory Rate 16 10/16/2024 2:23 PM CDT Oxygen Saturation 100% 10/28/2024 10:32 AM CDT Inhaled Oxygen Concentration - - Weight 79.2 kg (174 lb 9.7 oz) 10/14/2024 9:22 A M CDT Height 169.9 cm (5' 6.89) 03/21/2024 8:54 AM CD T Body Mass Index 27.44 03/21/2024 8:54 AM CDT Plan of Treatment Upcoming Encounters Date Type Department Care Team (Late st Contact Info) Description 11/18/2024 7:30 AM CDT Appointment Department of Obstetrics and Gynecology in [address] [phone] Yaa Hou M.D. [address] [place] [phone] Discharge Disposition: Home or Self Care 11/18/2024 9:30 AM CDT Routine Department of Obstetrics and Gynecology in [place], [place] [address] [place] [phone] Yaa Hou M.D. [address] [place] [phone] 12/06/2024 7:30 AM CDT Appointment Department of Obstetrics and Gynecology in [place], [place] [address] [place] [phone] Yaa Hou M.D. [address] [place] [phone] Discharge Disposition: Home or Self Care 12/06/2024 10:00 AM CDT Routine Department of Obstetrics and Gynecology in [place], [place] [address] [place] [phone] Lauren Syed M.D., Ph.D. [address] [place] [phone] 12/16/2024 9:15 AM CDT Appointment Department of Obstetrics and Gynecology in [place], [place] [address] [place] [phone] Yaa Hou M.D. [address] [place] [phone] Discharge Disposition: Home or Self Care 12/16/2024 11:00 AM CDT Routine Department of Obstetrics and Gynecology in [place], [place] [address] [place] [phone] Yaa Hou M.D. [address] [place] [phone] Procedures Procedure Name Priority Date/Time Associated Diagnosis Comments INJECTION VISIT - RHOGAM Routine 025 9:45 AM CDT 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HCC) Type O Blood Rhesus Negative Multigravida Advanced Maternal Age Affecting Management ([facility]) Abnormal Ultrasound Placenta GLUCOSE POCT, B Routine 10/16/2024 11:06 AM CDT GLUCOSE LAI, 3 HR, S/P Routine 8:07 AM CDT High Risk (HCC) FERRITIN, S Routine 10/14/2024 12:54 PM CDT 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HCC) Multigravida Advanced Maternal Age Affecting Management (HCC) Abnormal Ultrasound Placenta T4 (THYROXINE), FREE, S Routine 10/15/19 12:54 PM CDT 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HCC) Multigravida Advanced Maternal Age Affecting Management (HCC) Abnormal Ultrasound Placenta GLUCOSE LAI, 1HR, S/P Routine 10/14/2024 12:54 PM CDT 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HCC) Type O Blood Rhesus Negative THYROID-STIMULATING HORMONE-SENSITIVE (S-TSH) Routine 10/14/2024 12:54 PM CDT 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HCC) Type O Blood Rhesus Negative CBC WITHOUT DIFFERENTIAL, B Routine 10/14/2024 12:54 PM CDT 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HCC) Type O Blood Rhesus Negative SYPHILIS IGG W/ REFLEX, EIA, S Routine 10/14/2024 12:54 PM CDT 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HCC) Type O Blood Rhesus Negative US OB FOLLOW-UP AND OR GROWTH TWINS RAD - Routine (most inpatients and all outpatients) 10/14/2024 7:34 AM CDT Twins (HCC) Hypothyroidism US OB ADVANCED LEVEL TWINS RAD - Routine (most inpatients and all outpatients) 09/12/2024 9:40 AM CDT 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HCC) THYROID-STIMULATING HORMONE-SENSITIVE (S-TSH) Routine 08/26/2024 10:07 AM CDT Twins (HCC) Hypothyroidism CHLAMYDIA/GONORRHOEAE AMPLIFIED RNA Routine 07/23/2024 12:04 PM FACULTY NEUROPSYCHOLOGIST 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HCC) MICROSCOPIC MANUAL Routine 07/23/2024 12:03 PM FACULTY NEUROPSYCHOLOGIST PH, U Routine 07/23/2024 12:03 PM FACULTY NEUROPSYCHOLOGIST DIPSTICK, U Routine 07/23/2024 12:03 PM FACULTY NEUROPSYCHOLOGIST OSMOLALITY, U Routine 07/23/2024 12:03 PM FACULTY NEUROPSYCHOLOGIST URINALYSIS WITH MICROSCOPIC Routine 07/23/2024 12:03 PM FACULTY NEUROPSYCHOLOGIST 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HCC) PROTEIN/CREATININE RATIO, RANDOM, URINE Routine 07/23/2024 12:03 PM FACULTY NEUROPSYCHOLOGIST 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HCC) FERRITIN, S Routine 07/23/2024 11:55 AM FACULTY NEUROPSYCHOLOGIST 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HCC) CREATININE WITH EGFR, S/P Routine 07/23/2024 11:55 AM FACULTY NEUROPSYCHOLOGIST 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HCC) ASPARTATE AMINOTRANSFERASE (AST), S/P Routine 07/23/2024 11:55 AM FACULTY NEUROPSYCHOLOGIST 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HCC) TYPE AND SCREEN Routine 07/23/2024 11:55 AM FACULTY NEUROPSYCHOLOGIST 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HCC) T4 (THYROXINE), FREE, S Routine 07/23/19 11:55 AM FACULTY NEUROPSYCHOLOGIST 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HCC) Hypothyroidism Postsurgical THYROID-STIMULATING HORMONE-SENSITIVE (S-TSH) Routine 07/23/2024 11:55 AM FACULTY NEUROPSYCHOLOGIST 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HCC) Hypothyroidism Postsurgical US OB FIRST TRIMESTER TWINS RAD - Routine (most inpatients and all outpatients) 07/23/2024 8:25 AM FACULTY NEUROPSYCHOLOGIST Twin (HCC) THYROID FUNCTION CASCADE, S Routine 06/27/2024 THYROID-STIMULATING HORMONE-SENSITIVE (S-TSH) Routine 06/27/2024 HEMOGLOBIN A1C, B Routine 06/27/2024 CBC WITHOUT DIFFERENTIAL, B Routine 06/27/2024 SYPHILIS TOTAL AB W/ REFLEX S Routine 06/27/2024 VARICELLA-ZOSTER AB, IGG, S Routine 06/27/2024 RUBELLA ANTIBODIES, IGG Routine 06/27/2024 HBC TOTAL AB , S Routine 06/27/2024 HBS ANTIBODY , S Routine 06/27/2024 HIV-1/-2 AG AND AB SCREEN Routine 06/27/2024 HBS ANTIGEN , S Routine 06/27/2024 THYROID-STIMULATING HORMONE-SENSITIVE (S-TSH) Routine 06/25/2024 12:20 PM FACULTY NEUROPSYCHOLOGIST US HEAD NECK SOFT TISSUE RAD - Timed (for specific dates/times) 03/20/2024 2:38 PM CDT Malignant Neoplasm Of Thyroid Papillary (HCC) THYROGLOBULIN, TM, S Routine 03/20/2024 1:28 PM CDT Malignant Neoplasm Of Thyroid Papillary (HCC) THYROID-STIMULATING HORMONE-SENSITIVE (S-TSH) Routine 03/20/2024 1:28 PM CDT Malignant Neoplasm Of Thyroid Papillary (HCC) US HEAD NECK SOFT TISSUE RAD - Routine (most inpatients and all outpatients) 01/03/2023 1:10 PM CDT Malignant Neoplasm Of Thyroid Papillary (HCC) THYROGLOBULIN, TM, S Routine 01/03/2023 11:59 AM CDT Malignant Neoplasm Of Thyroid Papillary (HCC) T4 (THYROXINE), FREE, S Routine 01/04/20 11:59 AM CDT Malignant Neoplasm Of Thyroid Papillary (HCC) THYROID-STIMULATING HORMONE-SENSITIVE (S-TSH) Routine 01/03/2023 11:59 AM CDT Malignant Neoplasm Of Thyroid Papillary (HCC) PARATHYROID HORMONE (PTH), S Timed 10/28/2021 12:51 PM CDT ADULT OXYGEN THERAPY Routine 10/28/2021 10:35 AM CDT SURGICAL PATHOLOGY, [facility] Routine 10/28/2021 9:23 AM CDT Malignant Neoplasm Of Thyroid Papillary (HCC) LDA ANE ENDOTRACHEAL AIRWAY Routine 10/28/2021 8:16 AM CDT BIOPSY LYMPH NODE HEAD-NECK 10/28/2021 7:55 AM CDT Malignant Neoplasm Of Thyroid Papillary (HCC) LYMPHADENECTOMY HEAD/NECK 10/28/2021 7:55 AM CDT Malignant Neoplasm Of Thyroid Papillary (HCC) THYROIDECTOMY - LOBECTOMY 10/28/2021 7:55 AM CDT Malignant Neoplasm Of Thyroid Papillary (HCC) TEST, U Routine 10/28/2021 7:34 AM CDT SARS CORONAVIRUS-2 RNA, V STAT 10/26/2021 9:44 AM CDT Encounter For Screening For Other Viral Diseases (COVID-19) OTORHINOLARYNGOLOGY IMAGE EXAM Routine 10/14/2021 11:20 AM CDT VOCAL CORD CHECK Routine 10/13/2021 11:52 AM CDT Malignant Neoplasm Of Thyroid Papillary (HCC) US SUPERFICIAL TISSUE FINE NEEDLE ASPIRATION RAD - Routine (most inpatients and all outpatients) 10/12/2021 10:24 AM CDT Malignant Neoplasm Of Thyroid Papillary (HCC) CYTOLOGY FINE-NEEDLE ASPIRATION WITH THYROGLOBULIN (TG) REFLEX Timed 10/12/2021 9:48 AM CDT THYROGLOBULIN, FNA, LYMPH NODE Timed 10/12/2021 9:48 AM CDT CYTOLOGY FINE NEEDLE ASPIRATION (INCLUDES CORE BIOPSIES Timed 10/12/2021 9:45 AM CDT US THYROID RAD - Routine (most inpatients and all outpatients) 10/01/2021 1:50 PM CDT Malignant Neoplasm Of Thyroid Papillary (HCC) THYROGLOBULIN, TM, S Routine 10/01/2021 12:07 PM CDT Malignant Neoplasm Of Thyroid Papillary (HCC) THYROID-STIMULATING HORMONE-SENSITIVE (S-TSH) Routine 10/01/2021 12:07 PM CDT Malignant Neoplasm Of Thyroid Papillary (HCC) CALCIUM, TOT, S/P Routine 10/01/2021 12:07 PM CDT Malignant Neoplasm Of Thyroid Papillary (HCC) CREATININE WITH EGFR, S/P Routine 10/01/2021 12:07 PM CDT Malignant Neoplasm Of Thyroid Papillary (HCC) US THYROID RAD - Routine (most inpatients and all outpatients) 02/08/2021 8:35 AM CDT Malignant Neoplasm Of Thyroid Papillary (HCC) THYROID-STIMULATING HORMONE-SENSITIVE (S-TSH) Routine 02/08/2021 7:20 AM CDT Malignant Neoplasm Of Thyroid Papillary (HCC) CALCIUM, TOT, S/P Routine 02/08/2021 7:20 AM CDT Malignant Neoplasm Of Thyroid Papillary (HCC) US THYROID RAD - Routine (most inpatients and all outpatients) 08/17/2020 12:06 PM FACULTY NEUROPSYCHOLOGIST Malignant Neoplasm Of Thyroid Papillary (HCC) THYROID-STIMULATING HORMONE-SENSITIVE (S-TSH) Routine 08/17/2020 10:36 AM FACULTY NEUROPSYCHOLOGIST Malignant Neoplasm Of Thyroid Papillary (HCC) US THYROID RAD - Routine (most inpatients and all outpatients) 07/25/2019 11:25 AM FACULTY NEUROPSYCHOLOGIST Malignant Neoplasm Of Thyroid Papillary (HCC) THYROGLOBULIN, TM, S Routine 07/25/2019 10:08 AM FACULTY NEUROPSYCHOLOGIST Malignant Neoplasm Of Thyroid Papillary (HCC) THYROID-STIMULATING HORMONE-SENSITIVE (S-TSH) Routine 07/25/2019 10:08 AM FACULTY NEUROPSYCHOLOGIST Malignant Neoplasm Of Thyroid Papillary (HCC) DERMATOLOGY IMAGE EXAM Routine 9 10:03 AM CDT DERMATOPATHOLOGY Routine 01/25/2019 10:00 AM CDT Nevi Multiple Melanoma Family History Lesion Skin Leg Dermatoheliosis THYROID-STIMULATING HORMONE-SENSITIVE (S-TSH) Routine 09/25/2018 12:39 PM CDT Malignant Neoplasm Of Thyroid (HCC) US THYROID RAD - Routine (most inpatients and all outpatients) 09/25/2018 12:11 PM CDT Malignant Neoplasm Of Thyroid (HCC) DERMATOLOGY IMAGE EXAM Routine 9 9:35 AM FACULTY NEUROPSYCHOLOGIST TG REFLEX, FNAB, WASHINGS Routine 12/18/2017 3:54 PM CDT CYTOLOGY FINE-NEEDLE ASPIRATION WITH THYROGLOBULIN (TG) REFLEX Routine 12/18/2017 11:55 AM CDT US SUPERFICIAL TISSUE FINE NEEDLE ASPIRATION RAD - Routine (most inpatients and all outpatients) 12/18/2017 11:06 AM CDT Malignant Neoplasm Of Thyroid Papillary (HCC) THYROID-STIMULATING HORMONE-SENSITIVE (S-TSH) Routine 12/07/2017 12:44 PM CDT Malignant Neoplasm Of Thyroid (HCC) US THYROID Routine 12/07/2017 12:12 PM CDT Malignant Neoplasm Of Thyroid (HCC) DX CHEST AP OR PA AND LATERAL 2 VIEWS Routine 05/08/2017 11:32 AM FACULTY NEUROPSYCHOLOGIST US HEAD NECK SOFT TISSUE Routine 017 10:50 AM FACULTY NEUROPSYCHOLOGIST THYROID-STIMULATING HORMONE-SENSITIVE (S-TSH) Routine 05/08/2017 9:06 AM FACULTY NEUROPSYCHOLOGIST US HEAD NECK SOFT TISSUE Routine 017 11:44 AM CDT THYROID-STIMULATING HORMONE-SENSITIVE (S-TSH) Routine 02/06/2017 9:28 AM CDT DERMATOLOGY IMAGE EXAM Routine 7 4:32 PM CDT US HEAD NECK SOFT TISSUE Routine 017 10:53 AM FACULTY NEUROPSYCHOLOGIST THYROID-STIMULATING HORMONE-SENSITIVE (S-TSH) Routine 06/16/2016 9:46 AM FACULTY NEUROPSYCHOLOGIST T4 (THYROXINE), FREE, S Routine 05/20/20 15 8:15 AM FACULTY NEUROPSYCHOLOGIST THYROID-STIMULATING HORMONE-SENSITIVE (S-TSH) Routine 05/20/2015 8:15 AM FACULTY NEUROPSYCHOLOGIST HXGENERAL PATHOLOGY REPORT Routine 04/21/2015 11:51 AM FACULTY NEUROPSYCHOLOGIST T4 (THYROXINE), FREE, S Routine 04/06/20 15 12:14 PM CDT THYROID-STIMULATING HORMONE-SENSITIVE (S-TSH) Routine 04/06/2015 12:14 PM CDT INTERPRETATION OF OUTSIDE US OTHER Routine 04/06/2015 11:46 AM CDT HXGENERAL PATHOLOGY REPORT Routine 04/06/2015 7:54 AM CDT OUTSIDE US BODY Routine 03/31/2015 11:19 AM CDT OUTSIDE US BODY Routine 03/20/2015 1:14 PM CDT Results * Injection Visit - Rhogam (10/28/2024 9:45 AM CDT) Narrative Beverly Strong, L.P.N. - 10/28/2024 9:45 AM CDT Beverly Strong L.P.N. 10/28/2024 10:30 AM Injection Visit - Rhogam Performed by: Beverly Strong, L.P.N. Authorized by: Yaa Hou M.D. Yaa Hou M.D. OB GYNE ORDERABLES Final Re sult * Glucose, POCT (10/16/2024 11:06 AM CDT) Glucose, POCT, B 115 70 - 140 mg/dL 10/16/2024 11:09 AM CDT PCDT Comment: Glucose results collected from venous catheters may be falsely elevated. Site Venline 10/16/2024 11:09 AM CDT PCDT Blood 10/16/2024 11:0 6 AM CDT 10/16/2024 11:09 AM CDT Unknown Provider LAB POCT ORDERABLES-MANUAL Nila l Result POC [facility] [address] [place] [address], [facility] PCDT [facility] POC [address] [place] [address] * Glucose Tolerance, 3 Hours (10/16/2024 8:07 [...] AM CDT 10/16/2024 8:55 AM CDT Narrative [facility] [place] - 10/16/2024 11:42 AM CDT Specimen Information: Specimen ID: [id number] Specimen Type: Blood Specimen Collection Start Date: 10/16/2024 8:07 AM Specimen Received Date: 10/16/2024 8:55 AM Specimen ID: [id number] Specimen Type: Blood Specimen Collection Start Date: 10/16/2024 9:10 AM Specimen Received Date: 10/16/2024 9:33 AM Specimen ID: [id number] Specimen Type: Blood Specimen Collection Start Date: 10/16/2024 10:09 AM Specimen Received Date: 10/16/2024 10:38 AM Specimen ID: [id number] Specimen Type: Blood Specimen Collection Start Date: 10/16/2024 11:07 AM Specimen Received Date: 10/16/2024 11:29 AM Yaa Hou M.D. LAB BLOOD NON ADD-ON Final Result Performing Organization Address City/[facility]/ZIP Co de Phone Number [facility] [place] [address] [place] [address], [place] [facility] [address] [place] [address] * Syphilis IgG w/ Reflex, EIA, S (RST/FLA) (10/14/2024 12:54 PM CDT) [facility] Syphilis IgG w/ Reflex, EIA, S Nonreactive Nonreactive 10/15/2024 12:33 PM CDT [facility] Comment: No serologic evidence of infection with T. pallidum (syphilis). Repeat testing may be considered in patients with suspected acute or primary syphilis in 2-4 weeks. For additional information on interpretation of the syphilis reverse algorithm and results, see: [email or web address] Blood (Blood, Venous) 10/14/2024 12:54 PM CDT 10/14/2024 5:40 PM CDT Khalida Servin M.D., Ph.D. LAB MICROBIOLOGY - BLOOD ORDERABLES Final Result Performing Organization Address City/[facility]/ZIP Co de Phone Number [facility] [address] [place] [address] [facility] [address] [place] [address] * Glucose Tolerance Test, 1 hour (10/14/2024 12:54 PM CDT) [facility] Glucose, 1 Hr 152 Not Applicable mg/dL 10/14/2024 2:41 PM CDT DTL Blood (Blood, Venous) 10/14/2024 12:54 PM CDT 10/14/2024 1:30 PM CDT Khalida Servin M.D., Ph.D. LAB BLOOD NON ADD- ON Final Result Performing Organization Address City/[facility]/ZIP Co de Phone Number [facility] [place] [address] [place] [address], [facility] DTL [facility] [address] [place] [address] * (ABNORMAL) CBC without Differential (10/14/2024 12:54 PM CDT) Only the most recent of2 resultswithin the time period is included. [facility] Hemoglobin 9.2(L) 11.6 - 15.0 g/dL 10/14/2024 2:08 PM CDT DTL Hematocrit 29.1(L) 35.5 - 44.9 % 10/14/2024 2:08 PM CDT DTL Erythrocytes 3.29(L) 3.92 - 5.13 x10(12)/L 10/14/2024 2:08 PM CDT DTL MCV 88.4 78.2 - 97.9 fL 10/14/2024 2:08 PM CDT DTL RBC Distrib Width 13.6 12.2 - 16.1 % 10/14/2024 2:08 PM CDT DTL Platelet Count 350 157 - 371 x10(9)/L 10/14/2024 2:08 PM CDT DTL Leukocytes 8.8 3.4 - 9.6 x10(9)/L 10/14/2024 2:08 PM CDT DTL Blood (Blood, Venous) 10/14/2024 12:54 PM CDT 10/14/2024 1:11 PM CDT Khalida Servin M.D., Ph.D. LAB BLOOD ADD-ON F inal Result Performing Organization Address City/[facility]/ZIP Co de Phone Number [facility] [place] [address] [place] [address] * S-TSH (Thyroid-Stimulating Hormone - Sensitive) (10/14/2024 12:54 PM CDT) Only the most recent of18 resultswithin the time period is included. TSH, Sensitive 0.7 0.3 - 4.2 mIU/L 10/14/2024 2:42 PM CDT DT Blood (Blood, Venous) 10/14/2024 12:54 PM CDT 10/14/2024 1:31 PM CDT Khalida Servin M.D., Ph.D. LAB BLOOD ADD-ON F inal Result Performing Organization Address [facility] Co de Phone Number [facility] [place] [address] [place] [address] * T4 (Thyroxine), Free (10/14/2024 12:54 PM CDT) Only the most recent of5 resultswithin the time period is included. T4 (Thyroxine), Free, S 1.2 0.9 - 1.7 ng/dL 10/14/2024 2:42 PM CDT DT Blood (Blood, Venous) 10/14/2024 12:54 PM CDT 10/14/2024 1:31 PM CDT us Yaa Hou M.D. LAB BLOOD ADD-ON Final Resu lt Performing Organization Address [facility] Co de Phone Number [facility] [place] [address] [place] [address] * Ferritin (10/14/2024 12:54 PM CDT) Only the most recent of2 resultswithin the time period is included. Ferritin, S 7 6 - 175 mcg/L 10/14/2024 2:42 PM CDT DTL Blood (Blood, Venous) 10/14/2024 12:54 PM CDT 10/14/2024 1:31 PM CDT us Yaa Hou M.D. LAB BLOOD ADD-ON Final Resu lt [facility] [place] [address] [place] [address], [facility] [place] [address] [place] [address] * US OB Follow-up and or Growth [...] Hadlock EFW (lb,oz) 1 lb 12 oz ([id number]) EFW discordance 2.8 % Extremities / Bony [...] appear normal: Heart / Thorax 3-vessel view. 2-kgbszw-dmexfvl view. Abdomen Stomach. Bladder. The following structures [...] Hadlock EFW (lb,oz) 1 lb 12 oz ([id number]-FL) EFW discordance 2.8 % Extremities / Bony [...] Hadlock EFW (lb,oz) 1 lb 12 oz (OHF-BQ-VL-FL) EFW discordance 2.8 % Extremities / Bony [...] appear normal: Heart / Thorax 3-vessel view. 9-tfbmgy-xpukvoh view. Abdomen Stomach. Bladder. The following structures [...] Hadlock EFW (lb,oz) 1 lb 12 oz (UDL-XS-QC-FL) EFW discordance 2.8 % Extremities / Bony [...] IMG OB US PROCEDURES Final R esult * US OB Advanced Level Twins (09/12/2024 9:40 AM CDT) Anatomical Region Laterality Modality Body, Ultrasound OB RST LOS, Ultrasound ARZ LOS N/A Ultrasound 09/12/2024 7:46 AM CDT Narrative 09/12/2024 9:49 AM CDT Exam Type ========= OB Detailed Anatomy Indication ======== Dichorionic-diamniotic Advanced Anatomy History ====== OB History 4 Method ====== Transabdominal ultrasound examination ========= Twin . Dichorionic-diamniotic Dating ====== Date Details Gest. age YAS Stated YAS 20 w + 5 d 01/25/2025 U/S Fetus 1 09/12/2024 based upon AC, BPD, Femur 20 w + 2 d 01/28/2025 U/S Fetus 2 based upon AC, BPD, Femur 21 w + 1 d 01/22/2025 Assigned dating based on ultrasound (Fetus 2: CRL), selected on 07/23/2024 20 w + 5 d 01/25/2025 Fetus 1: General Evaluation Cardiac activity present. FHR 154 bpm. Presentation: Breech, maternal left Placenta: Placental site: anterior, without placenta previa or vasa previa Umbilical cord: Cord vessels: 3 vessel cord. Insertion site: normal insertion Amniotic fluid: Amount of AF: normal Fetus 1: Biometry BPD 49.0 mm 20w 6d 54% HC 182.5 mm -0.1SD Cerebellum tr 21.6 mm 63% Nuchal fold 4.7 mm APAD 45.1 mm 20w 0d TAD 49.0 mm 20w 5d AC 148.1 mm 20w 1d 24% Femur 31.3 mm 19w 5d 12% Humerus 32.4 mm 20w 6d 54% HC / AC 1.23 91% Weight Calculation: EFW 327 g 15% Hadlock EFW (lb,oz) 0 lb 12 oz EFW by Hadlock ([id number]) EFW discordance 17.0 % Head / Face / Neck Biometry: Refrigeration Operator 6.4 mm CM 3.2 mm 4% Inner IOD 13.3 mm Outer IOD 31.0 mm 20w 0d 13% Nasal bone 6.6 mm Extremities / Bony Struc Biometry: Radius 29.4 mm 21w 1d 60% Ulna 31.7 mm 22w 0d 72% FL / BPD 0.64 3% FL / HC 0.17 2% FL / AC 0.21 22% Tibia 29.6 mm 20w 6d 57% Fibula 29.9 mm 20w 4d 48% Fetus 1: Anatomy The following structures appear normal: Head / Neck Cranium. Lateral ventricles. Choroid plexus. Midline falx. Cavum septi pellucidi. Cerebellum. Cisterna magna. Vermis. Neck. Nuchal fold. Face Profile. Nose. Coronal face. Nasal bone. Palate. Tongue. Maxilla. Mandible. Orbits. Lens. Heart / Thorax 4-chamber view: Pulmonary veins: normal. RVOT view. LVOT view. Situs. Aortic arch view. Bicaval view. Ductal arch view. Interventricular septum. Diaphragm. Abdomen Abdom. wall. Cord insertion. Stomach. Kidneys. Bladder. Right renal artery. Left renal artery. Genitals. Spine Cervical spine. Thoracic spine. Lumbar spine. Sacral spine. Extremities / Skeleton Arms. Hands. Legs. Feet. The following structures could not be adequately visualized: Face Lips. Heart / Thorax 3-vessel view. 5-tnyqrr-txgegef view. sex: female. Fetus 2: General Evaluation Cardiac activity present. FHR 142 bpm. Presentation: Breech, maternal right Placenta: Placental site: anterior, without placenta previa or vasa previa Umbilical cord: Cord vessels: 3 vessel cord. Insertion site: normal insertion Amniotic fluid: Amount of AF: normal Fetus 2: Biometry BPD 51.3 mm 21w 4d 81% HC 188.5 mm +0.3SD Cerebellum tr 21.4 mm 56% Nuchal fold 4.7 mm APAD 54.8 mm 22w 6d TAD 52.3 mm 21w 6d AC 168.5 mm 21w 6d 79% Femur 31.9 mm 19w 6d 17% Humerus 31.1 mm 20w 2d 33% HC / AC 1.12 26% Weight Calculation: EFW 394 g 61% Hadlock EFW (lb,oz) 0 lb 14 oz EFW by Hadlock ([id number]-JD-[id number]-FL) EFW discordance 17.0 % Head / Face / Neck Biometry: Refrigeration Operator 7.4 mm CM 3.1 mm 3% Inner IOD 15.5 mm Outer IOD 32.7 mm 21w 0d 28% Nasal bone 6.5 mm Extremities / Bony Struc Biometry: Radius 26.4 mm 19w 6d 39% Ulna 28.9 mm 20w 6d 33% FL / BPD 0.62 <1% FL / HC 0.17 2% FL / AC 0.19 <1% Tibia 28.6 mm 20w 3d 41% Fibula 30.0 mm 20w 5d 49% Fetus 2: Anatomy The following structures appear normal: Head / Neck Cranium. Lateral ventricles. Choroid plexus. Midline falx. Cavum septi pellucidi. Cerebellum. Cisterna magna. Vermis. Neck. Nuchal fold. Face Lips. Profile. Nose. Coronal face. Nasal bone. Palate. Tongue. Maxilla. Mandible. Orbits. Lens. Heart / Thorax 4-chamber view: Pulmonary veins: normal. RVOT view. LVOT view. 3-vessel view. 0-biajno-fnlksvh view. Situs. Bicaval view. Interventricular septum. Diaphragm. Abdomen Abdom. wall. Cord insertion. Stomach. Kidneys. Bladder. Right renal artery. Genitals. Spine Cervical spine. Thoracic spine. Lumbar spine. Sacral spine. Extremities / Skeleton Arms. Hands. Legs. Feet. The following structures could not be adequately visualized: Heart / Thorax Aortic arch view. Ductal arch view. Abdomen other: Possible duplicate left renal artery sex: female. Maternal Structures Cervix Normal Right Ovary normal adnexa Left Ovary normal adnexa Impression ========= Dichorionic/diamniotic twin . YAS established by 13 week scan. Twin A: Incomplete anatomic survey: suboptimal cardiac and facial views; remainder of anatomy appears normal. Composite biometry is consistent with gestational age (15%, 327 grams). Anterior placenta without evidence of previa; incidental note is made of a marginal umbilical cord insertion site. Amniotic fluid volume normal. Twin B: Incomplete anatomic survey: suboptimal cardiac views; remainder of anatomy appears normal (incidental note is made of a possible duplicate left renal artery) Composite biometry is consistent with gestational age (61%, 394 grams). Anterior placenta without evidence of previa. Amniotic fluid volume normal. Insignificant 17% intertwin discordance in estimated weights. Recommendations Recommend repeat ultrasound in 1-4 weeks to complete anatomic survey. Procedure Note Farhad Slaughter M.D. - 09/12/2024 Exam Type ========= OB Detailed Anatomy Indication ======== Dichorionic-diamniotic Advanced Anatomy History ====== OB History 4 Method ====== Transabdominal ultrasound examination ========= Twin . Dichorionic-diamniotic Dating ====== Date DetailsGest. age YSA Stated YAS 20 w + 5 d 01/25/2025 U/S Fetus 1 09/12/2024 based upon AC, BPD, Femur 20w + 2 d 01/28/2025 U/S Fetus 2 based upon AC, BPD, Femur 21 w + 1 01/22/2025 Assigned dating based on ultrasound (Fetus 2: CRL), selected on w + 5 d 01/25/2025 Fetus 1: General Evaluation Cardiac activity present. FHR 154 bpm. Presentation: Breech, maternalleft Placenta: Placental site: anterior, without placenta previa or vasaprevia Umbilical cord: Cord vessels: 3 vessel cord. Insertion site: normalinsertion Amniotic fluid: Amount of AF: normal Fetus 1: Biometry BPD 49.0 mm 20w 6d 54% HC 182.5 mm -0.1SD Cerebellum tr 21.6 mm 63% Nuchal fold 4.7 mm APAD 45.1 mm 20w 0d TAD 49.0 mm 20w 5d AC 148.1 mm 20w 1d 24% Femur 31.3 mm 19w 5d 12% Humerus 32.4 mm 20w 6d 54% HC / AC 1.23 91% Weight Calculation: EFW 327 g 15% Hadlock EFW (lb,oz) 0 lb 12 oz EFW by Hadlock ([id number]-FL) EFW discordance 17.0 % Head / Face / Neck Biometry: Refrigeration Operator 6.4 mm CM 3.2 mm 4% Inner IOD 13.3 mm Outer IOD 31.0 mm 20w 0d 13% Nasal bone 6.6 mm Extremities / Bony Struc Biometry: Radius 29.4 mm 21w 1d 60% Ulna 31.7 mm 22w 0d 72% FL / BPD 0.64 3% FL / HC 0.17 2% FL / AC 0.21 22% Tibia 29.6 mm 20w 6d 57% Fibula 29.9 mm 20w 4d 48% Fetus 1: Anatomy The following structures appear normal: Head / Neck Cranium. Lateral ventricles. Choroid plexus. Midline falx.Cavum septi pellucidi. Cerebellum. Cisterna magna. Vermis. Neck. Nuchal fold. Face Profile. Nose. Coronal face. Nasal bone. Palate. Tongue. Maxilla.Mandible. Orbits. Lens. Heart / Thorax 4-chamber view: Pulmonary veins: normal. RVOT view. LVOTview. Situs. Aortic arch view. Bicaval view. Ductal arch view.Interventricular septum. Diaphragm. Abdomen Abdom. wall. Cord insertion. Stomach. Kidneys. Bladder.Right renal artery. Left renal artery. Genitals. Spine Cervical spine. Thoracic spine. Lumbar spine. Sacralspine. Extremities / Skeleton Arms. Hands. Legs. Feet. The following structures could not be adequately visualized: Face Lips. Heart / Thorax 3-vessel view. 7-nihbbc-aidupqc view. sex: female. Fetus 2: General Evaluation Cardiac activity present. FHR 142 bpm. Presentation: Breech, maternalright Placenta: Placental site: anterior, without placenta previa or vasaprevia Umbilical cord: Cord vessels: 3 vessel cord. Insertion site: normalinsertion Amniotic fluid: Amount of AF: normal Fetus 2: Biometry BPD 51.3 mm 21w 4d 81% HC 188.5 mm +0.3SD Cerebellum tr 21.4 mm 56% Nuchal fold 4.7 mm APAD 54.8 mm 22w 6d TAD 52.3 mm 21w 6d AC 168.5 mm 21w 6d 79% Femur 31.9 mm 19w 6d 17% Humerus 31.1 mm 20w 2d 33% HC / AC 1.12 26% Weight Calculation: EFW 394 g 61% Hadlock EFW (lb,oz) 0 lb 14 oz EFW by Hadlock (TRY-FN-NH-FL) EFW discordance 17.0 % Head / Face / Neck Biometry: Refrigeration Operator 7.4 mm CM 3.1 mm 3% Inner IOD 15.5 mm Outer IOD 32.7 mm 21w 0d 28% Nasal bone 6.5 mm Extremities / Bony Struc Biometry: Radius 26.4 mm 19w 6d 39% Ulna 28.9 mm 20w 6d 33% FL / BPD 0.62 <1% FL / HC 0.17 2% FL / AC 0.19 <1% Tibia 28.6 mm 20w 3d 41% Fibula 30.0 mm 20w 5d 49% Fetus 2: Anatomy The following structures appear normal: Head / Neck Cranium. Lateral ventricles. Choroid plexus. Midline falx.Cavum septi pellucidi. Cerebellum. Cisterna magna. Vermis. Neck. Nuchal fold. Face Lips. Profile. Nose. Coronal face. Nasal bone. Palate.Tongue. Maxilla. Mandible. Orbits. Lens. Heart / Thorax 4-chamber view: Pulmonary veins: normal. RVOT view. LVOTview. 3- vessel view. 6-bigqsd-seibqhl view. Situs. Bicaval view.Interventricular septum. Diaphragm. Abdomen Abdom. wall. Cord insertion. Stomach. Kidneys. Bladder.Right renal artery. Genitals. Spine Cervical spine. Thoracic spine. Lumbar spine. Sacralspine. Extremities / Skeleton Arms. Hands. Legs. Feet. The following structures could not be adequately visualized: Heart / Thorax Aortic arch view. Ductal arch view. Abdomen other: Possible duplicate left renal artery sex: female. Maternal Structures Cervix Normal Right Ovary normal adnexa Left Ovary normal adnexa Impression ========= Dichorionic/diamniotic twin . YAS established by 13 week scan. Twin A: Incomplete anatomic survey: suboptimal cardiac and facialviews; remainder of anatomy appears normal. Composite biometry is consistent with gestational age (15%, 327grams). Anterior placenta without evidence of previa; incidental note is made of amarginal umbilical cord insertion site. Amniotic fluid volume normal. Twin B: Incomplete anatomic survey: suboptimal cardiac views;remainder of anatomy appears normal (incidental note is made of a possibleduplicate left renal artery) Composite biometry is consistent with gestational age (61%, 394grams). Anterior placenta without evidence of previa. Amniotic fluid volume normal. Insignificant 17% intertwin discordance in estimated weights. Recommendations Recommend repeat ultrasound in 1-4 weeks to complete anatomicsurvey. Shania Hull M.D. IMG OB US PROCEDURES Final R esult * Chlamydia / Gonorrhoeae Amplified RNA (07/23/2024 12:04 PM FACULTY NEUROPSYCHOLOGIST) Source Urine, Urine, First Voided 07/23/2024 10:12 PM FACULTY NEUROPSYCHOLOGIST SDSC Chlamydia trachomatis amplified RNA Negative Negative 07/23/2024 10:12 PM FACULTY NEUROPSYCHOLOGIST [facility]SC Source Urine, Urine, First Voided 07/23/2024 10:12 PM FACULTY NEUROPSYCHOLOGIST [facility]SC Neisseria gonorrhoeae amplified RNA Negative Negative 07/23/2024 10:12 PM FACULTY NEUROPSYCHOLOGIST [facility] Urine (Urine, First Voided) 07/23/2024 12:04 PM FACULTY NEUROPSYCHOLOGIST 07/23/2024 4:08 PM FACULTY NEUROPSYCHOLOGIST Yaa Hou M.D. LAB MICROBIOLOGY - GENERAL ORDERABLES Final Result [facility] [address] [place] [address] [facility] [address] [place] [address] [place] [address] * (ABNORMAL) Dipstick, Urine (07/23/2024 12:03 PM FACULTY NEUROPSYCHOLOGIST) Hemoglobin, QL, U Negative Negative 07/23/2024 1:05 PM FACULTY NEUROPSYCHOLOGIST DTL Leukocyte Esterase, U Negative Negative 07/23/2024 1:05 PM FACULTY NEUROPSYCHOLOGIST DTL Nitrite, U Negative Negative 07/23/2024 1:05 PM FACULTY NEUROPSYCHOLOGIST DTL Ketone, U 10(A) Negative mg/dL 07/23/2024 1:05 PM FACULTY NEUROPSYCHOLOGIST DTL Glucose, U Negative Negative mg/dL 07/23/2024 1:05 PM FACULTY NEUROPSYCHOLOGIST DTL Urine 07/23/2024 12:0 3 PM FACULTY NEUROPSYCHOLOGIST 07/23/2024 12:45 PM FACULTY NEUROPSYCHOLOGIST Yaa Hou M.D. LAB URINE ORDERABLES Final Result Performing Organization Address [facility] Co de Phone Number [facility] [address] [place] [address], [facility] DTL [facility] [address] [place] [address] * Microscopic Manual (07/23/2024 12:03 PM FACULTY NEUROPSYCHOLOGIST) Pathologist [facility] Microscopy Normal 07/23/2024 1:26 PM FACULTY NEUROPSYCHOLOGIST DTL RBC <3 <3 /hpf 07/23/2024 1:26 PM FACULTY NEUROPSYCHOLOGIST DTL WBC 1-3 /hpf 07/23/2024 1:26 PM FACULTY NEUROPSYCHOLOGIST DTL Comment: ----REFERENCE VALUE---- <4 (Males) <11 (Females) Squamous Epithelial Cells, U 1-3 /hpf 07/23/2024 1:26 PM FACULTY NEUROPSYCHOLOGIST DTL Crystals Amorphous crystals present 07/23/2024 1:26 PM FACULTY NEUROPSYCHOLOGIST DTL Urine 07/23/2024 12:0 3 PM FACULTY NEUROPSYCHOLOGIST 07/23/2024 1:03 PM FACULTY NEUROPSYCHOLOGIST us Yaa Hou M.D. LAB URINE ORDERABLES Final Result [facility] [place] [address] [place] [address], [facility] [address] [place] [address] * pH, Urine (07/23/2024 12:03 PM FACULTY NEUROPSYCHOLOGIST) pH, U 7.3 4.5 - 8.0 07/23/2024 1:2 8 PM FACULTY NEUROPSYCHOLOGIST DTL Urine 07/23/2024 12:0 3 PM FACULTY NEUROPSYCHOLOGIST 07/23/2024 12:45 PM FACULTY NEUROPSYCHOLOGIST us Yaa Hou M.D. LAB URINE ORDERABLES Final Result Performing Organization Address City/[facility] Co de Phone Number [facility] [address] [place] [address], [facility] [address] [place] [address] * Protein/Creatinine Ratio, Random, Urine (07/23/2024 12:03 PM FACULTY NEUROPSYCHOLOGIST) Protein, Total, Random, U 8 mg/dL 07/23/2024 1:31 PM FACULTY NEUROPSYCHOLOGIST DTL Creatinine, Random, U 93 16 - 326 mg/dL 07/23/2024 1:31 PM FACULTY NEUROPSYCHOLOGIST DTL Protein/Creatin ine Ratio 0.09 <0.18 mg/mg 07/23/2024 1:31 PM FACULTY NEUROPSYCHOLOGIST DT Urine (Urine, Midstream) 07/23/2024 12:03 PM FACULTY NEUROPSYCHOLOGIST 07/23/2024 12:45 PM FACULTY NEUROPSYCHOLOGIST us Yaa Hou M.D. LAB URINE ORDERABLES Final Result Performing Organization Address City/[facility]/ZIP Co de Phone Number [facility] [place] [address] [place] [address], [facility] [address] [place] [address] * Osmolality, Urine (07/23/2024 12:03 PM FACULTY NEUROPSYCHOLOGIST) Osmolality, U 523 150 - 1150 mOsm/kg 07/23/2024 1:28 PM FACULTY NEUROPSYCHOLOGIST DTL Urine 07/23/2024 12:0 3 PM FACULTY NEUROPSYCHOLOGIST 07/23/2024 12:45 PM FACULTY NEUROPSYCHOLOGIST Yaa Hou M.D. LAB URINE ORDERABLES Final Result Performing Organization Address [facility]/ZIP Co de Phone Number [facility] [place] [address] [place] [address] * Urinalysis, with Microscopic: Urine, Midstream (07/23/2024 12:03 PM FACULTY NEUROPSYCHOLOGIST) Source Urine, Urine, Midstream 07/23/2024 12:45 PM FACULTY NEUROPSYCHOLOGIST DTL Color, U Yellow 07/23/2024 12:45 PM FACULTY NEUROPSYCHOLOGIST DTL Clarity, U Clear 07/23/2024 12:45 PM FACULTY NEUROPSYCHOLOGIST DTL Protein, U 8 <26 mg/dL 07/23/2024 1:31 PM FACULTY NEUROPSYCHOLOGIST DTL Protein/Osmol ality 0.15 <0.42 ratio 07/23/2024 1:31 PM FACULTY NEUROPSYCHOLOGIST DTL Predicted 24 HR Protein, U 122 <229 mg/24 h 07/23/2024 1:31 PM FACULTY NEUROPSYCHOLOGIST DTL Predicted Range 30-492 mg/24 h 07/23/2024 1:31 PM FACULTY NEUROPSYCHOLOGIST DTL Urine (Urine, Midstream) 07/23/2024 12:03 PM FACULTY NEUROPSYCHOLOGIST 07/23/2024 12:45 PM FACULTY NEUROPSYCHOLOGIST us Yaa Hou M.D. LAB URINE ORDERABLES Final Result [facility] [place] [address] [place] [address] * Type and Screen (with Reflex Antibody ID) (07/23/2024 11:55 AM FACULTY NEUROPSYCHOLOGIST) ABORh O Neg Not applicable 07/23/2024 1:07 PM FACULTY NEUROPSYCHOLOGIST ETRM Antibody Screen Negative Negative 07/23/2024 1:18 PM FACULTY NEUROPSYCHOLOGIST ETRM Type & Screen Expiration 07/26/2024 23:59 07/23/2024 1:07 PM FACULTY NEUROPSYCHOLOGIST ETRM Testing Location [place] DEFAULT 07/23/2024 12:10 PM FACULTY NEUROPSYCHOLOGIST ETRM Blood (Blood, Venous) 07/23/2024 11:55 AM FACULTY NEUROPSYCHOLOGIST 07/23/2024 12:10 PM FACULTY NEUROPSYCHOLOGIST Yaa Hou M.D. LAB BLOOD BANK TEST ORDERAB LES Final Result Performing Organization Address City/[facility] Co de Phone Number [facility] [place] [address] [place] [address], [facility] [place] [address] * AST (Aspartate Aminotransferase) (07/23/2024 11:55 AM FACULTY NEUROPSYCHOLOGIST) Aspartate Aminotransferase (AST), P 18 8 - 43 U/L 07/23/2024 12:49 PM FACULTY NEUROPSYCHOLOGIST METH Blood (Blood, Venous) 07/23/2024 11:55 AM FACULTY NEUROPSYCHOLOGIST 07/23/2024 12:09 PM FACULTY NEUROPSYCHOLOGIST us Yaa Hou M.D. LAB BLOOD ADD-ON Final Resu lt Performing Organization Address [facility] Co de Phone Number [facility] [place] [address] [place] [address], [facility] [place] [address] * Creatinine with Estimated GFR (07/23/2024 11:55 AM FACULTY NEUROPSYCHOLOGIST) Only the most recent of2 resultswithin the time period is included. Creatinine 0.61 0.59 - 1.04 mg/dL 07/23/2024 1:14 PM FACULTY NEUROPSYCHOLOGIST DTL Estimated GFR (eGFR) >90 >=60 mL/min/BSA 07/23/2024 1:14 PM FACULTY NEUROPSYCHOLOGIST DTL Comment: Estimated GFR calculated using the 2020 CKD_EPI creatinine equation. Blood (Blood, Venous) 07/23/2024 11:55 AM FACULTY NEUROPSYCHOLOGIST 07/23/2024 12:32 PM FACULTY NEUROPSYCHOLOGIST us Yaa Hou M.D. LAB BLOOD ADD-ON Final Resu lt [facility] [place] [address] [place] [address], [place] DTL [facility] [address] [place] [address] * US OB First Trimester Twins (07/23/2024 8:25 AM FACULTY NEUROPSYCHOLOGIST) Anatomical Region Laterality Modality Body, Ultrasound OB RST LOS, Ultrasound ARZ LOS N/A Ultrasound 07/23/2024 7:42 AM FACULTY NEUROPSYCHOLOGIST Narrative 07/23/2024 8:36 AM FACULTY NEUROPSYCHOLOGIST Exam Type ========= OB 1st Trimester Anatomy Indication ======== twin Method ====== Transabdominal ultrasound examination ========= Twin . Dichorionic-diamniotic Dating ====== Date Details Gest. age YAS Stated YAS 12 w + 1 d 02/03/2025 U/S Fetus 1 07/23/2024 based upon CRL 13 w + 1 d 01/27/2025 U/S Fetus 2 based upon CRL 13 w + 3 d 01/25/2025 Assigned dating based on ultrasound (Fetus 2: CRL), selected on 07/23/2024 13 w + 3 d 01/25/2025 Fetus 1: Assessment Gestational sac: Location: Maternal Left , intrauterine Yolk sac: visualized Embryo: visualized Cardiac activity: present CRL 69.9 mm 13w 1d FHR 148 bpm Fetus 1: General Evaluation Cardiac activity present Cord vessels: 3 vessel cord Amniotic fluid: normal Fetus 2: Assessment Gestational sac: Location: Maternal Right , intrauterine Yolk sac: not visualized Embryo: visualized Cardiac activity: present CRL 72.8 mm 13w 3d FHR 155 bpm Fetus 2: General Evaluation Cardiac activity present Amniotic fluid: subjectively normal Fetus 1: Biometry FHR 148 bpm CRL 69.9 mm 13w 1d Fetus 1: Anatomy The following structures appear normal: Cranium. Face: nasal bone present. Neck. Heart. Thorax. Abdominal wall. Stomach. Bladder. Spine. Arms. Legs. sex: female Fetus 2: Biometry FHR 155 bpm CRL 72.8 mm 13w 3d Fetus 2: Anatomy The following structures appear normal: Cranium. Face: nasal bone present. Neck. Heart. Thorax. Abdominal wall. Stomach. Bladder. Spine. Arms. Legs. sex: female Maternal Structures Uterus Normal Cervix Normal Right Ovary Normal ovary Left Ovary Normal ovary Impression ========= Twin intrauterine , diamniotic-dichorionic Recommend YAS based on ultrasound today due to 9 day discrepancy with LMP. Twin AA maternal left Twin BB maternal right, suspect circumvallate placenta There are no major structural abnormalities identified at this gestational age. Recommendations Due limitations of anatomy screening at this early gestation, it is recommended that further anatomy evaluation be performed in the second trimester, typically around 18w - 20w gestation. Procedure Note Krystina Dang M.D. - 07/23/2024 Exam Type ========= OB 1st Trimester Anatomy Indication ======== twin Method ====== Transabdominal ultrasound examination ========= Twin . Dichorionic-diamniotic Dating ====== Date DetailsGest. age YAS Stated YAS 12 w + 1 d 02/03/2025 U/S Fetus 1 07/23/2024 based upon CRL 13 w + 1 01/27/2025 U/S Fetus 2 based upon CRL 13 w + 3 01/25/2025 Assigned dating based on ultrasound (Fetus 2: CRL), selected on w + 3 d 01/25/2025 Fetus 1: Assessment Gestational sac: Location: Maternal Left , intrauterine Yolk sac: visualized Embryo: visualized Cardiac activity: present CRL 69.9 mm 13w 1d FHR 148 bpm Fetus 1: General Evaluation Cardiac activity present Cord vessels: 3 vessel cord Amniotic fluid: normal Fetus 2: Assessment Gestational sac: Location: Maternal Right , intrauterine Yolk sac: not visualized Embryo: visualized Cardiac activity: present CRL 72.8 mm 13w 3d FHR 155 bpm Fetus 2: General Evaluation Cardiac activity present Amniotic fluid: subjectively normal Fetus 1: Biometry FHR 148 bpm CRL 69.9 mm 13w 1d Fetus 1: Anatomy The following structures appear normal: Cranium. Face: nasal bone present. Neck. Heart. Thorax.Abdominal wall. Stomach. Bladder. Spine. Arms. Legs. sex: female Fetus 2: Biometry FHR 155 bpm CRL 72.8 mm 13w 3d Fetus 2: Anatomy The following structures appear normal: Cranium. Face: nasal bone present. Neck. Heart. Thorax. Abdominal wall.Stomach. Bladder. Spine. Arms. Legs. sex: female Maternal Structures Uterus Normal Cervix Normal Right Ovary Normal ovary Left Ovary Normal ovary Impression ========= Twin intrauterine , diamniotic-dichorionic Recommend YAS based on ultrasound today due to 9 day discrepancy withLMP. Twin AA maternal left Twin BB maternal right, suspect circumvallate placenta There are no major structural abnormalities identified at thisgestational age. Recommendations Due limitations of anatomy screening at this early gestation, it isrecommended that further anatomy evaluation be performed in the secondtrimester, typically around 18w - 20w gestation. us Yaa ROTH OB US PROCEDURES Final Result * HBc Total Ab , Serum (06/27/2024) EXT HBc Total Ab , S Negative Negative EXTERNAL NON-INTERFACE D LAB Blood (Blood, Venous) Result Giovanna Hou M.D. LAB MICROBIOLOGY - BLOOD OR DERABLES Final Result Performing Organization Address [facility] de Phone Number EXTERNAL NON-INTERFACED LAB [address] [place] [address] * (ABNORMAL) HBs Antibody , Serum (06/27/2024) EXT HBs Antibody , S Positive(A ) Negative EXTERNAL NON-INTERFACE D LAB Blood (Blood, Venous) Result Giovanna Hou M.D. LAB MICROBIOLOGY - BLOOD OR DERABLES Final Result Performing Organization Address [facility] de Phone Number EXTERNAL NON-INTERFACED LAB [address] [place] [address] * Syphilis Total Antibody with Reflex, S ([facility]/ARZ) (06/27/2024) EXT Syphilis Total Ab w/ Reflex Nonreactiv e/Negative Nonreactive /Negative, See Scanned Report EXTERNAL NON-INTERFACE D LAB Blood (Blood, Venous) Result Giovanna Hou M.D. LAB BLOOD ADD-ON Final Resu lt Performing Organization Address [facility] de Phone Number EXTERNAL NON-INTERFACED LAB [address] [place] [address] * Thyroid Function [place] (06/27/2024) EXT T4 (Thyroxine), Free, S 1.44 0.70 - 1.85 EXTERNAL NON-INTERFACED LAB Blood (Blood, Venous) Result Giovanna Hou M.D. LAB BLOOD ADD-ON Final Resu lt Performing Organization Address [facility] de Phone Number EXTERNAL NON-INTERFACED LAB [address] [place] [address] * HIV-1/-2 Ag and Ab Screen (06/27/2024) Pathologist [facility] EXT HIV-1/-2 Ag and Ab Screen Nonreactiv e/Negative Nonreactive /Negative, See Scanned Report EXTERNAL NON-INTERFACE D LAB Blood (Blood, Venous) Result [facility] Yaa Hou M.D. LAB MICROBIOLOGY - BLOOD OR DERABLES Final Result Performing Organization Address [facility] de Phone Number EXTERNAL NON-INTERFACED LAB [address] [place] [address] * HBs Antigen , Serum (06/27/2024) Pathologist [facility] EXT HBs Antigen , S Negative Negative, None detected EXTERNAL NON-INTERFACE D LAB Blood (Blood, Venous) Result [facility] Yaa Hou M.D. LAB MICROBIOLOGY - BLOOD OR DERABLES Final Result Performing Organization Address [facility] de Phone Number EXTERNAL NON-INTERFACED LAB [address] [place] [address] * Rubella Antibodies, IgG (06/27/2024) Pathologist [facility] EXT Rubella Ab IGG Vaccinated: positive Vaccinated: positive EXTERNAL NON-INTERFAC ED LAB Blood (Blood, Venous) Result [facility] Yaa Hou M.D. LAB MICROBIOLOGY - BLOOD OR DERABLES Final Result Performing Organization Address [facility] de Phone Number EXTERNAL NON-INTERFACED LAB [address] [place] [address] * Varicella-Zoster Antibody, IgG, Serum (06/27/2024) Pathologist [facility] EXT Varicella-Zos ter Ab, IgG, S Vaccinated: positive Vaccinated: positive EXTERNAL NON-INTERFAC ED LAB Blood (Blood, Venous) Result [facility] us Yaa Hou M.D. LAB MICROBIOLOGY - BLOOD OR DERABLES Final Result Performing Organization Address [facility] de Phone Number EXTERNAL NON-INTERFACED LAB [address] [place] [address] * Hemoglobin A1c (06/27/2024) EXT Hemoglobin A1c, B 5.5 0 - 5.6 EXTERNAL NON-INTERFACED LAB Blood (Blood, Venous) us Yaa Hou M.D. LAB BLOOD ADD-ON Final Resu lt EXTERNAL NON-INTERFACED LAB [address] [place] [address] * US Head Neck Soft Tissue (03/20/2024 2:38 PM CDT) Only the most recent of5 resultswithin the time period is included. Anatomical Region Laterality Modality Head and Neck, Ultrasound RS T LOS, Ultrasound ARZ LOS, Ultrasound FLA LOS N/A Ultrasound Impressions 03/20/2024 2:44 PM CDT Thyroidectomy. New midline level 1 lymph node was not well seen previously and can be followed. Narrative 03/20/2024 2:44 PM CDT EXAM: US HEAD NECK SOFT TISSUE COMPARISON: 01/03/2023 ultrasound FINDINGS: Thyroidectomy and cervical lymph node dissection. No suspicious thyroid bed nodule. No cervical lymphadenopathy. A partially cystic right level 3 lymph node is unchanged in size or sonographic imaging characteristics since the prior exam. The 0.4 x 1.0 x 1.7 cm left level 3 lymph node which previously underwent FNA with a benign result is also unchanged. Hypoechoic and lobulated 0.8 x 1.3 x 1.2 cm midline level 1 lymph node was not well seen previously and can be followed. Procedure Note Ilan Cole M.D. - 03/20/2024 EXAM: US HEAD NECK SOFT TISSUE COMPARISON: 01/03/2023 ultrasound FINDINGS: Thyroidectomy and cervical lymph node dissection. No suspiciousthyroid bed nodule. No cervical lymphadenopathy. A partially cystic right level 3 lymph nodeis unchanged in size or sonographic imaging characteristics since theprior exam. The 0.4 x 1.0 x 1.7 cm left level 3 lymph node whichpreviously underwent FNA with a benign result is also unchanged. Hypoechoic and lobulated 0.8 x 1.3 x 1.2 cm midlinelevel 1 lymph node was not well seen previously and can be followed. IMPRESSION: Thyroidectomy. New midline level 1 lymph node was not well seen previouslyand can be followed. us Flor Frey M.D. IMG US PROCEDURES Final Result * (ABNORMAL) Thyroglobulin, Tumor Marker (03/20/2024 1:28 PM CDT) Only the most recent of4 resultswithin the time period is included. Thyroglobulin Antibody, S <1.8 <1.8 IU/mL 03/20/2024 8:02 PM CDT [facility] Thyroglobulin, Tumor Marker, S 0.2(H) ng/mL 03/20/2024 7:58 PM CDT [facility] Comment: ----REFERENCE VALUE---- Athyrotic <0.1 Intact Thyroid <=33 Thyroglobulin Interpretation SEE COMMENT 03/20/2024 8:02 PM CDT [facility] Comment: Thyroglobulin (Tg) levels must be interpreted in the context of TSH levels, serial Tg measurements and radioiodine ablation status. Tg levels of 0.1-2.0 ng/mL in athyrotic individuals on suppressive therapy indicate a low risk of clinically detectable recurrent papillary/follicular thyroid cancer. ----ADDITIONAL INFORMATION---- PLEASE NOTE: The given cutoff of <1.8 IU/mL is for the detection of potential thyroglobulin antibody (TgAb) interference in thyroglobulin immunoassays. Thyroglobulin flagging is based on athyrotic reference values. A thyroglobulin antibody (TgAb) reference cutoff of <4.0 IU/mL may be more suitable for the evaluation of autoimmune thyroiditis. The thyroglobulin and thyroglobulin antibody testing methods are immunoenzymatic assays manufactured by [employer] and performed on the [employer] DXI 800. Values obtained from different assay methods or kits may be different and cannot be used interchangeably. The results cannot be interpreted as absolute evidence for the presence or absence of malignant disease. Blood (Blood, Venous) 03/20/2024 1:28 PM CDT 03/20/2024 6:45 PM CDT Result [facility] Flor Frey M.D. LAB BLOOD ADD-ON Final Result Performing Organization Address City/[facility]/ZIP Co de Phone Number [facility] [address] [place] [address] [facility] [address] [place] [address] * Parathyroid Hormone (PTH) (10/28/2021 12:51 PM CDT) Parathyroid Hormone (PTH), S 16 15 - 65 pg/mL 10/28/2021 1:58 PM CDT DTL Blood (Blood, Venous) 10/28/2021 12:51 PM CDT 10/28/2021 1:26 PM CDT Mary Ann Maxwell M.D. LAB BLOOD ADD-ON Final Result Performing Organization Address [facility] Co de Phone Number [facility] [place] [address] [place] [address], [facility] [place] [address] [place] [address] * Surgical Pathology, Frozen Lab (10/28/2021 9:23 AM CDT) 11/05/2021 9:11 AM CDT M[facility] Participated in the Interpretation Corrective Therapy Aide Dakota Grant -Pathology Fellow 11/05/2021 9:11 AM CDT [facility] Report electronically signed by Jaya Ludwig M.D. I verify that I have examined all relevant slides/materia ls for the specimen(s) and rendered or confirmed the diagnosis. 11/05/2021 9:11 AM CDT M[facility] Frozen Intraoperative Report A. Lymph nodes, left lateral neck, biopsy: Multiple (3) lymph nodes are negative for tumor. C. Lymph nodes, central neck, biopsy: Nodular thyroid parenchyma. D. Lymph node, left neck level VII, biopsy: A single (1) lymph node is negative for tumor. Signed by Jaya Ludwig M.D. 10/29/2021 9:58 AM 11/05/2021 9:11 AM CDT M[facility] Gross Description A. Received fresh labeled left lateral neck lymph nodes is a 2 x 2 x 0.7 cm aggregate of three lymph nodes. Lymph nodes are submitted for frozen and permanent sections. Grossed by Teressa Altamirano D.O.-Pathology Resident. B. Received fresh labeled left thyroid lobe is a partial thyroidectomy with 4.5 x 1.7 x 1.3 cm left lobe and 2.2 x 1.5 x 0.7 cm isthmus. The capsule is inked and margins are taken perpendicularl y. Isthmus margin is shaved. There is a 1.2 x 0.9 x 0.9 cm plaza, firm unifocal nodule located in the inferior pole of the left lobe. [employer] Room Operator tissue, including the entire nodule, submitted for permanent sections. Grossed by Teressa Altamirano D.O.-Pathology Resident. C. Received fresh labeled central neck lymph nodes is a 1.7 x 1.0 x 0.7 cm aggregate of three lymph nodes. Lymph nodes are submitted for frozen and permanent sections. Grossed by Teressa Altamirano D.O.-Pathology Resident. D. Received fresh labeled left neck level 7 lymph nodes is a 1.4 x 1.0 x 0.7 lymph node. Lymph node is submitted for frozen and permanent sections. Grossed by Brandie Delarosa M.S., PA([facility]). 11/05/2021 9:11 AM CDT M[facility] Block Summary A Left lateral neck lymph nodes A1 Left lateral neck lymph node 1(A1) - frozen A2 Left lateral neck lymph node 2(A2) - frozen B Left thyroid lobe B1 Isthmus margin B2 Nodule 1 B3 Nodule 2 B4 Nodule 3 B5 Background thyroid C Central neck lymph nodes C1 Central neck lymph nodes 3(C1)-frozen D Left neck level 7 lymph nodes D1 Left neck level 7 lymph node 1(D1) - frozen 11/05/2021 9:11 AM CDT M[facility] Interpretation FINAL DIAGNOSIS A. Lymph nodes, left lateral neck, biopsy: A single (1 of 3) lymph node is positive for a microscopic focus of metastatic papillary thyroid carcinoma. Size of the metastatic deposit is 0.74 mm. Extranodal extension is not identified. See comment. COMMENT: The metastatic deposit is not present in the frozen section slide and is seen in the permanent slides only. B. Thyroid, left lobe, lobectomy: Thyroid parenchyma with marked chronic lymphocytic thyroiditis and a dominant hyperplastic nodule. A single (1) lymph node is negative for tumor. C. Lymph nodes, central neck, biopsy: Nodular thyroid parenchyma. One lymph node with a single subcapsular psammoma body but negative for tumor. D. Lymph node, left neck level VII, biopsy: A single (1) lymph node is negative for tumor. 11/05/2021 9:11 AM CDT M[facility] Tissue (Lymph Node) 10/28/2021 9:23 AM CDT Tissue (Thyroid, Left) 10/28/2021 9:43 AM CDT Comment:Suture baltazar superio r pole Tissue (Lymph Node) 10/28/2021 9:51 AM CDT Tissue (Lymph Node) 10/28/2021 9:52 AM CDT Syl Oliva M.D. LAB SURG PATH ORDERABLES Final Result Performing Organization Address City/State/[facility] Co de Phone Number [facility] [place] [address] [place] [address], [facility] METH [facility] [address] [place] [address] * LDA ANE ENDOTRACHEAL AIRWAY (10/28/2021 8:16 AM CDT) Narrative Keyon Colorado M.S.N., R.N. - 10/28/2021 8:16 AM CDT Keyon Colorado M.S.N., R.N. 10/28/2021 8:34 AM Airway Date/Time: 10/28/2021 8:16 AM Performed by: Keyon Colorado M.S.N., R.N. Authorized by: Tim Samano M.D., J.D. Patient location during procedure: OR / Procedure Area PROCEDURE DETAILS: Mask difficulty assessment: easy mask Final airway type: video laryngoscope Laryngeal Manipulation: no Final best view of glottic structures - Cormack/Lehane Score: grade 2A ETT location: oral VL device: glide scope Elizabeth scope blade size: 3 Adult tube size: 6 Adult ETT distance at teeth/gum: 22 Oral tube type: monitored ETT Cuffed: yes Number of attempt to successful placement: 1 Airway confirmation: bilateral breath sounds, positive ETCO2 and bilateral chest rise Other previous techniques attempted: none PRE PROCEDURE DETAILS: Pre evaluation for airway management: procedure Urgency: elective Preop assessment of probable difficulty: no difficulty anticipated Preoxygenation: bag valve mask SEDATION / ANESTHESIA Anesthesia method: anesthesia POST PROCEDURE DETAILS: Procedure outcome: successful Airway event: no complications Tim Samano M.D., J.D. ANESTHESIA ORDER [place] Final Result * Test, Qualitative, Urine (10/28/2021 7:34 AM CDT) Test, U Negative 10/28/2021 8:06 AM CDT DTL Urine (Urine, Midstream) 10/28/2021 7:34 AM CDT 10/28/2021 7:34 AM CDT Syl Oliva M.D. LAB URINE ORDERABLES Final Resu lt [facility] [place] [address] [place] [address], [facility] [place] [address] [place] [address] * SARS Coronavirus-2 RNA, V Asymptomatic (10/26/2021 9:44 AM CDT) Pathologist [facility] SARS-CoV-2 Specimen Source Swab, Nasopharynx 10/26/2021 11:53 PM CDT [facility] SARS CoV-2 RNA, TMA Undetected Undetected 10/26/2021 11:53 PM CDT [facility] Comment: SARS-CoV-2 RNA absent. This result does not rule out COVID-19 in the patient, as the sensitivity of the test depends on the timing of the specimen collection and the quality of the specimen. Result should be correlated with patient's history and clinical presentation. ----ADDITIONAL INFORMATION---- This molecular amplification test was performed using the Aptima SARS-CoV-2 assay ([employer] on the [employer] System under emergency use authorization (EUA) by the U.S. Food and Drug Administration. Fact sheets for this EUA assay can be found at the following links: For Healthcare Providers: https://www.fda.gov/media/004697/download For Patients: https://www.fda.gov/media/683714/download Varies (Nasopharynx) 10/26/2021 9:44 AM CDT 10/26/2021 4:11 PM CDT us Spencer Vieyra D.O. LAB MICROBIOLOGY - GENERAL ORDERABLES Final Result Performing Organization Address City/[facility] Co de Phone Number [facility] [address] [place] [address], [facility] MK[facility] [place] [address] * NOSE AND AIRWAY-Otorhinolaryngology Image Exam (10/14/2021 11:20 AM CDT) 10/14/2021 11:2 0 AM CDT Narrative [facility] - 10/14/2021 11:22 AM CDT This order has been created and auto-finalized to support the import of images acquired without order. The clinical documentation to support these images can be found on the encounter that produced images. us Provider Not In System IMG NON RAD IMAGING PROCE DURES Final Result Performing Organization Address [facility] Co de Phone Number [facility] NA * Vocal cord check (10/13/2021 11:52 AM CDT) us Flor Frey M.D. ENT ORDERABLES Final Result * US Superficial Tissue Fine Needle Aspiration (10/12/2021 10:24 AM CDT) Only the most recent of2 resultswithin the time period is included. Anatomical Region Laterality Modality Body, Ultrasound RST LOS, Mu sculoskeletal ARZ LOS, Ultrasound ARZ LOS, Ultrasound FLA LOS, Procedure FLA LOS, Muskuloskeletal FLA LOS, Abdominal FLA LOS, Procedural N/A Ultrasound 10/12/2021 10:2 7 AM CDT Impressions 10/12/2021 10:29 AM CDT Ultrasound-guided left thyroid nodule and left neck lymph node biopsy. NR Narrative 10/12/2021 10:29 AM CDT EXAM: US SUPERFICIAL TISSUE FINE NEEDLE ASPIRATION PRE-PROCEDURE: Patient seen and evaluated. Allergies, pertinent medications, and history reviewed. Discussed risks, benefits, alternatives for procedure, and obtained informed consent. Patient understands information and questions answered. Immediately prior to starting the procedure, in the presence of the assisting personnel, procedural pause was conducted to verify correct patient identity and verification of procedure to be performed, and as applicable, correct side and site, correct patient position, availability of implants, special equipment, or special requirements, and all image and specimen identification data. The roles and responsibilities of care team members, residents, and fellows were discussed. TECHNIQUE: Sterile. 1% lidocaine for local anesthesia. Location: 1. Nodule in the upper left thyroid lobe 2. Prominent left level 2/3 lymph node which measured 5 x 10 x 17 mm on the exam performed 10/01/2021. Needle size: 25-gauge; thyroglobulin assay was also performed from the lymph node Number of passes: 6 samples were acquired from each site Complication: None. Blood loss: Small hematoma developed about the thyroid during the biopsy. PATIENT INSTRUCTIONS: Patient may be dismissed from the radiology department when dismissal criteria met. POST-PROCEDURE DIAGNOSIS: Suspicious left thyroid nodule Procedure Note Huan Valle M.D. - 10/12/2021 EXAM: US SUPERFICIAL TISSUE FINE NEEDLE ASPIRATION PRE-PROCEDURE: Patient seen and evaluated. Allergies, pertinentmedications, and history reviewed. Discussed risks, benefits, alternatives for procedure, and obtainedinformed consent. Patient understands information and questions answered. Immediately prior tostarting the procedure, in the presence of the assisting personnel, procedural pause was conducted toverify correct patient identity and verification of procedure to be performed, and as applicable,correct side and site, correct patient position, availability of implants, special equipment, orspecial requirements, and all image and specimen identification data. The roles and responsibilitiesof care team members, residents, and fellows were discussed. TECHNIQUE: Sterile. 1% lidocaine for local anesthesia. Location: 1. Nodule in the upper left thyroid lobe 2. Prominent left level 2/3 lymph node which measured 5 x 10 x 17 mm onthe exam performed 10/01/2021. Needle size: 25-gauge; thyroglobulin assay was also performed from thelymp node Number of passes: 6 samples were acquired from each site Complication: None. Blood loss: Small hematoma developed about the thyroid during thebiopsy. PATIENT INSTRUCTIONS: Patient may be dismissed from the radiologydepartment when dismissal criteria met. POST-PROCEDURE DIAGNOSIS: Suspicious left thyroid nodule IMPRESSION: Ultrasound-guided left thyroid nodule and left neck lymph node biopsy. NR us Flor Frey M.D. IMG US PROCEDURES Final Result * Reflex, Thyroglobin (Tg) Cytology Fine-Needle Aspiration (10/12/2021 9:48 AM CDT) Only the most recent of2 resultswithin the time period is included. 10/12/2021 11:23 AM CDT DTL Source A. Lymph node, Left neck, fine needle aspiration 10/12/2021 11:23 AM CDT DTL Report electronically signed by Theodore Vega M.D., Ph.D. I verify that I have examined all relevant slides/materials for the specimen(s) and rendered or confirmed the diagnosis. 10/12/2021 11:23 AM CDT DTL Gross Description Received 12 alcohol-fixed smears. 10/12/2021 11:23 AM CDT DTL Addendum Thyroglobulin, FNA for left neck lymph node result is 1.3 ng/mL. Signed by Theodore Vega M.D., Ph.D. 10/13/2021 10:56 AM 10/13/2021 10:56 AM CDT DTL Comment:REVISED RESULTS Interpretation A. Lymph node, Left neck, fine needle aspiration (smears): Negative for malignancy. Lymphocytes consistent with sampled lymph node. The thyroglobulin immunoenzymatic assay will be performed on the needle wash. 10/13/2021 10:56 AM CDT DTL Varies (Neck, Left) 10/12/2021 9:48 AM CDT 10/12/2021 10:43 AM CDT us Flor Frey M.D. LAB SURG PATH ORDERABLES Edited Result - Final Performing Organization Address [facility]/ZIP Co de Phone Number [facility] [address] [place] [address], [facility] [place] [address] [place] [address] * (ABNORMAL) Thyroglobulin, Tumor Marker, Fine-Needle Aspiration Biopsy Needle Wash (10/12/2021 9:48 AM CDT) Thyroglobulin, FNAB, Lymph Node 1.3(H) <=1.0 ng/mL 10/12/2021 4:07 PM CDT [facility] Thyroglobulin, FNAB, Interpretation SEE COMMENT 10/12/2021 4:07 PM CDT [facility] Comment: Thyroglobulin values >1.0 ng/mL suggests the node contains differentiated follicular cell derived thyroid carcinoma. This result assumes thyroid tissue and/or patient blood was not inadvertently aspirated. This test should be interpreted in the context of the clinical presentation, imaging and cytology findings. ----ADDITIONAL INFORMATION---- This test has been modified from the riddler operator's instructions. Its performance characteristics were determined by [facility] in a manner consistent with CLIA requirements. This test has not been cleared or approved by the U.S. Food and Drug Administration. The testing method is an immunoenzymatic assay manufactured by [employer] and performed on the [employer] DxI 800. Values obtained with different assay methods or kits may be different and cannot be used interchangeably. Test results cannot be interpreted as absolute evidence for the presence or absence of malignant disease. Lymph Node (LN) or Non-LN Source Lymph node 10/12/2021 4:07 PM CDT [facility] Site Location Left neck lymph node 10/12/2021 4:07 PM CDT [facility] FNA Needle Washings 10/12/2021 9:48 AM CDT 10/12/2021 1:59 PM CDT Flor Frey M.D. LAB BODY FLUIDS AND STOOLS ORDE INNA Final Result [facility] [address] [place] [address] [facility] Dept. of Laboratory Medicine and Pathology [address] [place] [address] * (ABNORMAL) Cytology Fine Needle Aspiration (including core biopsies) (10/12/2021 9:45 AM CDT) (A) 10/12/2021 11:14 AM CDT DTL Report electronically signed by Theodore Vega M.D., Ph.D. I verify that I have examined all relevant slides/materi als for the specimen(s) and rendered or confirmed the diagnosis. (A) 10/12/2021 11:14 AM CDT DTL Gross Description Received 12 alcohol-fixed smears.(A) 10/12/2021 11:14 AM CDT DTL Source A. Thyroid, Left nodule, fine needle aspiration(A) 10/12/2021 11:14 AM CDT DTL Interpretation A. Thyroid, Left nodule, fine needle aspiration (smears): Positive for malignancy. Cytologic features consistent with Papillary Thyroid Carcinoma. (A) 10/12/2021 11:14 AM CDT DTL Varies (Thyroid, Left) 10/12/2021 9:45 AM CDT 10/12/2021 10:40 AM CDT us Flor Frey M.D. LAB SURG PATH ORDERABLES Final Result [facility] [place] [address] [place] [address], [facility] [place] [address] [place] [address] * US Thyroid (10/01/2021 1:50 PM CDT) Only the most recent of6 resultswithin the time period is included. Anatomical Region Laterality Modality Head and Neck, Ultrasound RS T LOS, Ultrasound ARZ LOS, Ultrasound FLA LOS N/A Ultrasound 10/01/2021 1:51 PM CDT Impressions 10/01/2021 2:24 PM CDT 1. The high suspicion superior left lobe nodule 10 mm is unchanged. May consider continued follow-up versus fine-needle aspiration. 2. No high suspicion lymph node. Narrative 10/01/2021 2:24 PM CDT EXAM: US THYROID COMPARISON: Multiple thyroid ultrasounds, most recently 02/08/2021 FINDINGS: The right thyroid is surgically absent. The left thyroid lobe measures: 1.2 cm x 1.8 cm x 5.6 cm The isthmus measures: 2 mm in AP diameter. Thyroid parenchymal evaluation shows: A few nodules, with remarkable nodules described below. A nodule in the left lower thyroid lobe measures 10 x 12 x 12 mm. This predominantly solid nodule is isoechoic and not taller than wide, with smooth margins and a single echogenic focus. The ultrasound score is 1. Based on the sonographic features, the nodule has low suspicion for malignancy (1-5%). This is overall unchanged since 01/29/2021. A nodule in the left upper thyroid lobe measures 5 x 7 x 10 mm. This solid nodule is hypoechoic and not taller than wide, with indistinct margins and multiple punctate echogenic foci. The ultrasound score is 4. Based on the sonographic features, the nodule has high suspicion for malignancy (>20%). FNA remains recommended. There is a new nodule in the left upper thyroid lobe measures 3 x 5 x 6 mm. This solid nodule is hypoechoic and not taller than wide, with smooth margins and no echogenic foci. The ultrasound score is 2. Based on the sonographic features, the nodule has intermediate suspicion for malignancy (5-20%). Stable appearance of the presumed pyramidal lobe in the level 6 right neck. Lymph nodes: Neck levels 1-7 were surveyed and demonstrated stable lymph nodes. The thyroid nodule descriptions and categories are based on the AskMayoExpert Thyroid Nodule Care Process Model and ACR TI-RADS. Link: https://askmayoexpert.[facility].org/topic/clinical-answers/cnt-49290407/sec-203 28537 ACR Link: https://www.acr.org/Clinical-Resources/Cjdiztzju-wdd-Pvli-Systems/TI-RADS The AskMayoExpert Thyroid Nodule CPM states the following recommendations: No suspicion or Extremely low-suspicion nodule: No FNA, no imaging f/u Low-suspicion nodule: FNA if greater than or equal to 25 mm; US f/u in 2-5 yrs if greater than or equal to 15 mm Intermediate-suspicion nodule: FNA if greater than or equal to 15 mm; US f/u in 1-3 yrs if greater than or equal to 10 mm High-suspicion nodule: FNA if greater than or equal to 10 mm (or smaller if desired); US f/u in 1 yr if not FNA Procedure Note Lucie Carrillo M.D. - 10/01/2021 EXAM: US THYROID COMPARISON: Multiple thyroid ultrasounds, most recently 02/08/2021 FINDINGS: The right thyroid is surgically absent. The left thyroid lobe measures: 1.2 cm x 1.8 cm x 5.6 cm The isthmus measures: 2 mm in AP diameter. Thyroid parenchymal evaluation shows: A few nodules, with remarkablenodules described below. A nodule in the left lower thyroid lobe measures 10 x 12 x 12 mm. Thispredominantly solid nodule is isoechoic and not taller than wide, with smooth margins and a singleechogenic focus. The ultrasound score is 1. Based on the sonographic features, the nodule haslow suspicion for malignancy (1-5%). This is overall unchanged since 01/29/2021. A nodule in the left upper thyroid lobe measures 5 x 7 x 10 mm. This solidnodule is hypoechoic and not taller than wide, with indistinct margins and multiple punctateechogenic foci. The ultrasound score is 4. Based on the sonographic features, the nodule has highsuspicion for malignancy (>20%). FNA remains recommended. There is a new nodule in the left upper thyroid lobe measures 3 x 5 x 6mm. This solid nodule is hypoechoic and not taller than wide, with smooth margins and no echogenicfoci. The ultrasound score is 2. Based on the sonographic features, the nodule has intermediatesuspicion for malignancy (5-20%). Stable appearance of the presumed pyramidal lobe in the level 6 rightneck. Lymph nodes: Neck levels 1-7 were surveyed and demonstrated stable lymphnodes. The thyroid nodule descriptions and categories are based on theAskMayoExpert Thyroid Nodule Care Process Model and ACR TI-RADS. Link:https://askmayoexpert.[facility].org/topic/clinical-answers/cnt-/se c- 95677 ACR Link:https://www.acr.org/Clinical-Resources/Yddxljfpf-knp-Tkmy-Systems/TI-RADS The AskMayoExpert Thyroid Nodule [facility] states the followingrecommendations: No suspicion or Extremely low-suspicion nodule: No FNA, no imagingf/u Low-suspicion nodule: FNA if greater than or equal to 25 mm; US f/uin 2-5 yrs if greater than or equal to 15 mm Intermediate-suspicion nodule: FNA if greater than or equal to 15 mm;US f/u in 1-3 yrs if greater than or equal to 10 mm High-suspicion nodule: FNA if greater than or equal to 10 mm (orsmaller if desired); US f/u in 1 yr if not FNA IMPRESSION: 1. The high suspicion superior left lobe nodule 10 mm is unchanged. Mayconsider continued follow-up versus fine-needle aspiration. 2. No high suspicion lymph node. us Flor Frey M.D. IMG US PROCEDURES Final Result * Calcium, Total (10/01/2021 12:07 PM CDT) Only the most recent of2 resultswithin the time period is included. Calcium, Total, S 9.3 8.6 - 10.0 mg/dL 10/01/2021 1:07 PM CDT DTL Blood (Blood, Venous) 10/01/2021 12:07 PM CDT 10/01/2021 12:40 PM CDT us Flor Frey M.D. LAB BLOOD ADD-ON Final Result [facility] [address] [place] [address], [place] DTL [facility] [address] [place] [address] * Lateral Thigh-Dermatology Image Exam (01/25/2019 10:03 AM CDT) Only the most recent of3 resultswithin the time period is included. 01/25/2019 10:0 1 AM CDT Narrative [facility]IM[facility] - 01/25/2019 10:03 AM CDT This order has been created and auto-finalized to support the import of images acquired without order. The clinical documentation to support these images can be found on the encounter that produced images. us Provider Not In System IMG NON RAD IMAGING PROCE DURES Final Result Performing Organization Address [facility]/ZIP Co de Phone Number [facility]IM[facility] NA * Dermatopathology (01/25/2019 10:00 AM CDT) Gross Description Received in formalin labeled with the patient's name, medical record number, and right anterior thigh is a 0.4 cm in diameter pale plaza skin punch biopsy excised to a depth 0.5 cm. Eccentrically located on the skin surface and abutting the periphery is a 0.2 x 0.2 cm dark brown, hyperpigmented lesion with irregular borders. Specimen is bisected and submitted entirely in cassette A1. Grossed by ERIN. 01/30/2019 4:11 PM CDT Participated in the Interpretation Imani Cottrell M.D.-Pathology Fellow 01/30/2019 4:11 PM CDT Report electronically signed by Verna Stephens M.D. 01/30/2019 4:11 PM CDT 01/30/2019 4:11 PM CDT Interpretation FINAL DIAGNOSIS A. Right anterior thigh, Skin punch biopsy: Lentiginous compound nevus with many dermal melanophages 01/30/2019 4:11 PM CDT Skin (Right anterior thigh) 01/25/2019 10:00 AM CDT Geeta David M.D., Ph.D. LAB PATH DERM ORDERA BLES Final Result [place] [id number] * Thyroglobulin (TG) Reflex, Fine-Needle Aspiration Biopsy (FNAB), Washings (12/18/2017 3:54 PM CDT) TG Reflex, FNAB, Washings <0.1 ng/mL 12/18/2017 10:32 PM CDT [facility] Comment: A thyroglobulin cut-off has not been established for cases where the biopsied area is the thyroid. Thyroglobulin is not specific for malignancy when the biopsied site is the thyroid. Blood contamination might result in elevations of thyroglobulin in the washings, if the serum thyroglobulin is elevated. Thyroglobulin measurements in FNAB needle washings have only been validated in athyrotic individuals. ----ADDITIONAL INFORMATION---- This test has been modified from the riddler operator's instructions. Its performance characteristics were determined by [facility] in a manner consistent with CLIA requirements. This test has not been cleared or approved by the U.S. Food and Drug Administration. The testing method is an immunoenzymatic assay manufactured by [employer]. and performed on the [employer] DxI 800. Values obtained with different assay methods or kits may be different and cannot be used interchangeably. Test results cannot be interpreted as absolute evidence for the presence or absence of malignant disease. TG Reflex Site lymph node, midline neck nodule 12/18/2017 10:32 PM CDT [facility] FNA Needle Washings 12/18/2017 3:54 PM CDT 12/18/2017 3:54 PM CDT us Flor Frey M.D. LAB SURG PATH ORDERABLES Final Result Performing Organization Address City/State/[facility] Co de Phone Number [facility] [address] [place] [address] * DX Chest AP or PA and Lateral 2 Views (05/08/2017 11:32 AM FACULTY NEUROPSYCHOLOGIST) Anatomical Region Laterality Modality Chest N/A Radiographic Kylee ging 05/08/2017 11:3 2 AM FACULTY NEUROPSYCHOLOGIST Impressions 05/08/2017 11:41 AM FACULTY NEUROPSYCHOLOGIST Negative chest. Electronically signed by: Piter Garcia MD. [id number] 08-May-2017 11:41 Narrative 05/08/2017 11:41 AM FACULTY NEUROPSYCHOLOGIST 08-May-2017 11:32:00 Exam: Chest-- 2 Views Indications: Malignant Neoplasm Thyroid Papillary ORIGINAL REPORT - 08-May-2017 11:41:00 EXAM: Chest 2 views: Procedure Note Carrillo Garcia M.D. - 09/06/2017 08-May-2017 11:32:00 Exam: Chest-- 2 Views Indications: Malignant Neoplasm Thyroid Papillary ORIGINAL REPORT - 08-May-2017 11:41:00 EXAM: Chest 2 views: IMPRESSION: Negative chest. Electronically signed by: Piter Garcia MD. [id number] 08-May-2017 11:41 Flor Frey M.D. IMG DIAGNOSTIC IMAGING PROCEDUR ES Final Result * Hx general Pathology Report (04/21/2015 11:51 AM FACULTY NEUROPSYCHOLOGIST) Only the most recent of2 resultswithin the time period is included. 04/21/2015 11:5 1 AM FACULTY NEUROPSYCHOLOGIST 04/21/2015 11:51 AM FACULTY NEUROPSYCHOLOGIST Narrative [facility] [place] - 04/21/2015 11:51 AM FACULTY NEUROPSYCHOLOGIST 04/21/2015 Surgical Pathology ([id number]) Requested By: Ronn Lazaro M.D. [phone] SLIDE DISPOSITION: DIAGNOSIS: A. Thyroid, right and isthmus, lobectomy and isthmusectomy: Papillary thyroid carcinoma, classic subtype, grade 1 (of 4), forming a mass (1.2 x 1.1 x 0.9) located in the upper portion of the lobe. Nodular hyperplasia, forming a 0.8 x 0.7 x 0.5 cm nodule in the lower portion of the lobe. See Synoptic Report. B. Lymph nodes, right neck area , dissection: A single (of 4) lymph node is positive for metastatic papillary thyroid carcinoma, confirmed by cytokeratin immunostain (B1). C. Lymph nodes, left neck level IIa, dissection: Multiple (4) lymph nodes are negative for tumor. Synoptic Report Procedure: lobectomy (right) with isthmusectomy Lymph Node Sampling: central compartment (right, level ) and left level IIa Tumor Focality: unifocal Tumor Laterality: right lobe Tumor Size: 1.2 x 1.1 x 0.9 Histologic Type: papillary carcinoma, classic subtype Margins: uninvolved by carcinoma Angioinvasion (vascular invasion): not identified Lymphatic Invasion: not identified Extrathyroidal Extension: not identified Pathologic Staging Descriptors: not applicable Pathologic Staging (AJCC, 7th edition): Primary tumor: pT1b Regional lymph nodes: pN1a Number examined (total): 8 Number involved (total): 1 Lymph Node, Extranodal Extension: not identified Distant Metastasis: not identified The synoptic report incorporates information from all relevant surgical material and includes all required data elements of the current CAP Cancer Protocol. Participated in interpretation: Dr. Bennett Ladd. Pager: [phone]. As the signing pathologist, I verify that I have examined all relevant slides/materials for the specimen(s) and rendered or confirmed the diagnosis. DIAGNOSIS COMMENT: Rare cytokeratin positive cells were present only on permanent section slides of specimen B. 04/26/2015 12:20 Interpreted by: Angeles Cabrera M.D. [phone] Report electronically signed by Angeles Cabrera M.D. Transcribed by: [email or web address] 04/21/2015 13:44:04 PRELIMINARY FROZEN SECTION CONSULTATION: A. Thyroid, right and isthmus, lobectomy and isthmusectomy: Papillary thyroid carcinoma, classic subtype, grade 1 (of 4), forming a mass (1.7 x 0.6 x 0.6 cm) located in the upper portion of the lobe. Nodular hyperplasia, forming a 0.8 x 0.7 x 0.5 cm soft nodule in the lower portion of the lobe. Hold over to evaluate permanent sections. B. Lymph nodes, right neck area , dissection: Multiple (4) lymph nodes are negative for tumor. C. Lymph nodes, left neck level IIa, dissection: Multiple (4) lymph nodes are negative for tumor. Frozen section histologic interpretation performed by: Angeles Cabrera M.D. GROSS DESCRIPTION: A. Received fresh labeled right thyroid lobectomy and isthmusectomy is an 8.1 gram partial thyroidectomy with 4.7 x 2.7 x 1.7 cm right lobe and 1.7 x 0.6 x 0.6 cm isthmus. There is a 1.2 x 1.1 x 0.9 cm plaza, firm, unifocal nodule located in the superior pole of the right lobe. There is also a 0.8 x 0.7 x 0.5 cm soft, red nodule in the right inferior pole. Power House Control Room Operator sections submitted. Grossed by ABDIAS. B. Received fresh labeled right area neck dissection is a 2.5 x 1.5 x 1.0 cm aggregate of adipose and lymphatic tissue. All submitted. Grossed by CDP. C. Received fresh labeled left neck level IIa lymph nodes is a 3.3 x 2.1 x 1.2 cm aggregate of adipose and lymphatic tissue. Lymph nodes submitted. Grossed by BDA/GEGE. BLOCK SUMMARY: Part A: Right thyroid lobectomy and isthmusectomy 1 Right superior mass 1 2 Right superior mass 2 3 Right inferior nodule Part B: Right area neck dissection [address] 4 (B1) Part C: Left neck level IIA lymph nodes 1 Lt neck lvl 2A LN 2(C1) 2 Lt neck lvl 2A LN 1/2(C2) 3 Lt neck lvl 2A LN 2/2(C2) Procedure Note 09/02/2017 04/21/2015 Surgical Pathology ([id number]) Requested By: Ronn Lazaro M.D. [phone] SLIDE DISPOSITION: DIAGNOSIS: A. Thyroid, right and isthmus, lobectomy and isthmusectomy: Papillary thyroid carcinoma, classic subtype, grade 1 (of 4), forming a mass (1.2 x 1.1 x 0.9) located in the upper portion of the lobe. Nodular hyperplasia, forming a 0.8 x 0.7 x 0.5 cm nodule in the lower portion of the lobe. See Synoptic Report. B. Lymph nodes, right neck area , dissection: A single (of 4) lymph node is positive for metastatic papillary thyroid carcinoma, confirmed by cytokeratin immunostain (B1). C. Lymph nodes, left neck level IIa, dissection: Multiple (4) lymph nodes are negative for tumor. Synoptic Report Procedure: lobectomy (right) with isthmusectomy Lymph Node Sampling: central compartment (right, level ) and left level IIa Tumor Focality: unifocal Tumor Laterality: right lobe Tumor Size: 1.2 x 1.1 x 0.9 Histologic Type: papillary carcinoma, classic subtype Margins: uninvolved by carcinoma Angioinvasion (vascular invasion): not identified Lymphatic Invasion: not identified Extrathyroidal Extension: not identified Pathologic Staging Descriptors: not applicable Pathologic Staging (AJCC, 7th edition): Primary tumor: pT1b Regional lymph nodes: pN1a Number examined (total): 8 Number involved (total): 1 Lymph Node, Extranodal Extension: not identified Distant Metastasis: not identified The synoptic report incorporates information from all relevant surgical material and includes all required data elements of the current CAP Cancer Protocol. Participated in interpretation: Dr. Bennett Ladd. Pager: [phone]. As the signing pathologist, I verify that I have examined all relevant slides/materials for the specimen(s) and rendered or confirmed the diagnosis. DIAGNOSIS COMMENT: Rare cytokeratin positive cells were present only on permanent section slides of specimen B. 04/26/2015 12:20 Interpreted by: Angeles Cabrera M.D. [phone] Report electronically signed by Angeles Cabrera M.D. Transcribed by: [email or web address] 04/21/2015 13:44:04 PRELIMINARY FROZEN SECTION CONSULTATION: A. Thyroid, right and isthmus, lobectomy and isthmusectomy: Papillary thyroid carcinoma, classic subtype, grade 1 (of 4), forming a mass (1.7 x 0.6 x 0.6 cm) located in the upper portion of the lobe. Nodular hyperplasia, forming a 0.8 x 0.7 x 0.5 cm soft nodule in the lower portion of the lobe. Hold over to evaluate permanent sections. B. Lymph nodes, right neck area , dissection: Multiple (4) lymph nodes are negative for tumor. C. Lymph nodes, left neck level IIa, dissection: Multiple (4) lymph nodes are negative for tumor. Frozen section histologic interpretation performed by: Angeles Cabrera M.D. GROSS DESCRIPTION: A. Received fresh labeled right thyroid lobectomy and isthmusectomy is an 8.1 gram partial thyroidectomy with 4.7 x 2.7 x 1.7 cm right lobe and 1.7 x 0.6 x 0.6 cm isthmus. There is a 1.2 x 1.1 x 0.9 cm plaza, firm, unifocal nodule located in the superior pole of the right lobe. There is also a 0.8 x 0.7 x 0.5 cm soft, red nodule in the right inferior pole. Power House Control Room Operator sections submitted. Grossed by ABDIAS. B. Received fresh labeled right area neck dissection is a 2.5 x 1.5 x 1.0 cm aggregate of adipose and lymphatic tissue. All submitted. Grossed by CDP. C. Received fresh labeled left neck level IIa lymph nodes is a 3.3 x 2.1 x 1.2 cm aggregate of adipose and lymphatic tissue. Lymph nodes submitted. Grossed by BDA/[place]. BLOCK SUMMARY: Part A: Right thyroid lobectomy and isthmusectomy 1 Right superior mass 1 2 Right superior mass 2 3 Right inferior nodule Part B: Right area neck dissection [address] 4 (B1) Part C: Left neck level IIA lymph nodes 1 Lt neck lvl 2A LN 2(C1) 2 Lt neck lvl 2A LN 1/2(C2) 3 Lt neck lvl 2A LN 2/2(C2) us Ronn Lazaro M.D. LAB PATHOLOGY/CYTOLOGY OR DERABLES Final Result [facility] [place] [address] [id number] * Interpretation of Outside US Other (04/06/2015 11:46 AM CDT) Anatomical Region Laterality Modality N/A Ultrasound 04/06/2015 11:4 6 AM CDT Impressions 04/06/2015 1:30 PM CDT 1. Right thyroid nodule with features concerning for papillary thyroid cancer. 2. Indeterminant bilateral cervical lymph nodes. FINDINGS: Interpretation provided for outside ultrasound dated 03/20/2015. Suspicious hypervascular 1.3 x 0.8 x 1.1 cm hypoechoic nodule with internal microcalcification in the upper pole of the right lobe of the thyroid gland. This lesion was subsequently biopsied on 03/31/2015. No other concerning lesions in the isthmus or left lobe. Prominent bilateral upper cervical lymph nodes are indeterminant and measure 3 x 0.7 x 1.6 cm on the right and 3.5 x 1.1 x 1.3 cm on the left. These lymph nodes were targeted for biopsy on 03/31/2015. Electronically signed by: David De Leon [facility] [id number] 06-Apr-2015 13:30 Rory Taylor MD. [id number] 06-Apr-2015 13:30 Narrative 04/06/2015 1:30 PM CDT 06-Apr-2015 11:46:00 Exam: Interp of OS US Other Indications: Ca Thyroid Papillary ORIGINAL REPORT - 06-Apr-2015 13:30:00 EXAM: Interp of OS US Other COMPARISON: None Procedure Note Faby Taylor M.D. - 09/08/2017 06-Apr-2015 11:46:00 Exam: Interp of OS US Other Indications: Ca Thyroid Papillary ORIGINAL REPORT - 06-Apr-2015 13:30:00 EXAM: Interp of OS US Other COMPARISON: None IMPRESSION: 1. Right thyroid nodule with features concerning for papillary thyroidcancer. 2. Indeterminant bilateral cervical lymph nodes. FINDINGS: Interpretation provided for outside ultrasound dated 03/20/2015. Suspicious hypervascular 1.3 x 0.8 x 1.1 cm hypoechoic nodule withinternal microcalcification in the upper pole of the right lobe of thethyroid gland. This lesion was subsequently biopsied on 03/31/2015. Noother concerning lesions in the isthmus or left lobe. Prominent bilateral upper cervical lymph nodes are indeterminant andmeasure 3 x 0.7 x 1.6 cm on the right and 3.5 x 1.1 x 1.3 cm on the left.These lymph nodes were targeted for biopsy on 03/31/2015. Electronically signed by: David De Leon [facility] [id number] 06-Apr-2015 13:30 Rory Taylor MD. [id number] 13:30 us Ronn Lazaro M.D. IMG US PROCEDURES Final R esult * Outside US Body (03/31/2015 11:19 AM CDT) Only the most recent of2 resultswithin the time period is included. 03/31/2015 11:1 9 AM CDT Addenda Addendum by ProviderSage M.D. on 03/31/2015 11:19 AM CDT ODM^^^MCR THYROID FINE NEEDLE ASPIRATION 03/31/2015 11:19:19 us Historical Provider IMG US PROCEDURES Final Resu lt [facility] [address] [place] [address] Visit Diagnoses Diagnosis Start Date Malignant Neoplasm Of Thyroid (HCC) 09/21/2017 Malignant Neoplasm Of Thyroid (HCC) 12/07/2017 Malignant Neoplasm Of Thyroid (HCC) 12/07/2017 Malignant Neoplasm Of Thyroid Papillary (HCC) 12/07/2017 Malignant Neoplasm Of Thyroid Papillary (HCC) 12/18/2017 Malignant Neoplasm Of Thyroid (HCC) 12/21/2017 Hypothyroidism Primary 06/01/2018 Malignant Neoplasm Of Thyroid (HCC) 06/01/2018 Melanoma Family History 07/20/2018 Malignant Neoplasm Of Thyroid Papillary (HCC) 07/20/2018 Dermatitis Hand 07/20/2018 Angioma Mccormick 07/20/2018 Malignant Neoplasm Of Thyroid (HCC) 09/25/2018 Malignant Neoplasm Of Thyroid (HCC) 09/25/2018 Malignant Neoplasm Of Thyroid Papillary (HCC) 09/25/2018 Nevi Multiple 01/25/2019 Melanoma Family History 01/25/2019 Lesion Skin Leg 01/25/2019 Dermatoheliosis 01/25/2019 Malignant Neoplasm Of Thyroid Papillary (HCC) 05/02/2019 Malignant Neoplasm Of Thyroid Papillary (HCC) 07/25/2019 Malignant Neoplasm Of Thyroid Papillary (HCC) 07/25/2019 Malignant Neoplasm Of Thyroid Papillary (HCC) 07/25/2019 Malignant Neoplasm Of Thyroid Papillary (HCC) 10/30/2019 Malignant Neoplasm Of Thyroid Papillary (HCC) 02/10/2020 Keratosis Seborrheic 02/10/2020 Nevi Multiple 02/10/2020 Melanoma Family History 02/10/2020 Malignant Neoplasm Of Thyroid Papillary (HCC) 08/17/2020 Malignant Neoplasm Of Thyroid Papillary (HCC) 08/17/2020 Malignant Neoplasm Of Thyroid Papillary (HCC) 08/18/2020 Nevi Multiple 12/04/2020 Dermatoheliosis 12/04/2020 Keratosis Seborrheic 12/04/2020 Scar 12/04/2020 Malignant Neoplasm Of Thyroid Papillary (HCC) 02/08/2021 Malignant Neoplasm Of Thyroid Papillary (HCC) 02/08/2021 Malignant Neoplasm Of Thyroid Papillary (HCC) 02/08/2021 Malignant Neoplasm Of Thyroid Papillary (HCC) 10/01/2021 Malignant Neoplasm Of Thyroid Papillary (HCC) 10/01/2021 Malignant Neoplasm Of Thyroid Papillary (HCC) 10/04/2021 Malignant Neoplasm Of Thyroid Papillary (HCC) 10/12/2021 Malignant Neoplasm Of Thyroid Papillary (HCC) 10/13/2021 Malignant Neoplasm Of Thyroid Papillary (HCC) 10/13/2021 Vocal Cord Exam 10/14/2021 Encounter For Screening For Other Viral Diseases (COVID-19) 10/26/2021 Malignant Neoplasm Of Thyroid Papillary (HCC) 10/28/2021 Malignant Neoplasm Of Thyroid Papillary (HCC) 10/28/2021 Malignant Neoplasm Of Thyroid Papillary (HCC) 07/13/2022 Malignant Neoplasm Of Thyroid Papillary (HCC) 01/03/2023 Malignant Neoplasm Of Thyroid Papillary (HCC) 01/03/2023 Malignant Neoplasm Of Thyroid Papillary (HCC) 01/03/2023 Nevi Multiple 01/03/2023 Keratosis Seborrheic 01/03/2023 Dermatoheliosis 01/03/2023 Malignant Neoplasm Of Thyroid Papillary (HCC) 03/20/2024 Malignant Neoplasm Of Thyroid Papillary (HCC) 03/20/2024 Malignant Neoplasm Of Thyroid Papillary (HCC) 03/21/2024 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[facility]) 07/10/2024 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[facility]) 07/23/2024 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[facility]) 07/23/2024 Abnormal Ultrasound Placenta 07/23/2024 Malignant Neoplasm Of Thyroid Papillary (HCC) 07/23/2024 Hypothyroidism Postsurgical 07/23/2024 Type O Blood Rhesus Negative 07/23/2024 Sleep Apnea 07/23/2024 13 Weeks Gestation ([facility]) 07/23/2024 Depression Anxiety 07/23/2024 Twin ([facility]) 07/23/2024 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[facility]) 07/29/2024 Counseling Genetic For Family Planning 07/29/2024 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[facility]) 08/08/2024 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[facility]) 08/26/2024 Weakness General 08/26/2024 Twins ([facility]) 08/26/2024 Hypothyroidism 08/26/2024 Hypothyroidism Postsurgical 08/26/2024 Type O Blood Rhesus Negative 08/26/2024 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/12/2024 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/12/2024 Type O Blood Rhesus Negative 09/12/2024 Sleep Apnea Unspecified 09/12/2024 Malignant Neoplasm Of Thyroid Papillary (HCC) 09/12/2024 Hypothyroidism Postsurgical 09/12/2024 Depression Anxiety 09/12/2024 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 Screening Examination Skin Cancer 10/03/2024 Keratosis Seborrheic 10/03/2024 Dermatoheliosis 10/03/2024 Angioma Mccormick 10/03/2024 Nevi Multiple 10/03/2024 Melanoma Family History 10/03/2024 High Risk (HCC) 10/14/2024 Anemia 10/14/2024 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HCC) 10/14/2024 Weakness General 10/14/2024 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HCC) 10/14/2024 Hypothyroidism Postsurgical 10/14/2024 Sleep Apnea Unspecified 10/14/2024 Depression Anxiety 10/14/2024 Type O Blood Rhesus Negative 10/14/2024 Multigravida Advanced Maternal Age Affecting Management ([facility]) 10/14/2024 Abnormal Ultrasound Placenta 10/14/2024 Twins (HCC) 10/14/2024 Hypothyroidism 10/14/2024 Anemia 10/16/2024 High Risk (HCC) 10/16/2024 High Risk (HCC) 10/16/2024 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HCC) 10/28/2024 Type O Blood Rhesus Negative 10/28/2024 Type O Blood Rhesus Negative 10/28/2024 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HCC) 10/28/2024 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HCC) 10/28/2024 Type O Blood Rhesus Negative 10/28/2024 Multigravida Advanced Maternal Age Affecting Management ([facility]) 10/28/2024 Abnormal Ultrasound Placenta 10/28/2024 Need Vaccine Immunization Tetanus And Diphtheria Toxoids And Pertussis 10/28/2024 Goals Goal Patient Goal Type Associated Problems Recent Progress Patient-Stated? Author [facility] Care Plan for Healthy Care Plan [facility] Care Plan for Healthy No Support, Keesha [facility] - Nicotine Dependency Chronic Care Plan [facility] Care Plan for Healthy No Support, Keesha Additional Health Concerns Active Problems Noted Date Diagnosed Date [facility] Care Plan for Healthy 06/13 Care Teams Atg Architect Relationship Specialty Start Date End Date Elsewhere, Pcp PCP - General Internal Medicine 03/19/24 Hailey 07/23/24
--- OUTSIDE RECORDS SUMMARY | 2024-11-01 01:42 | XMS_ITS ---
Author Organization [facility] Address [address] [place] [address] Care Team Providers Care Machine Tool Builder Name Role Phone Elsewhere, Pcp Primary Care Provider Unavailabl e Active Problems * This document contains information received from the source organization and may not represent a complete record from that organization. Patient Care Coordination No te Formatting of this note migh t be different from the original. Seen by Dr. Servin for MFM consult on 09/12/24 will be followed by CC. Initial visit completed in [facility]. Transfer from [place] Delivery plan: chart: Care Team/nursing team: [facility] Dr. Hou/ M Dr. Servin Partner name: Bennett Pertinent medical [...] discussed Assessment & Plan (07/23/2024 1:33 PM MOUTHPIECE MAKER): MFM consult pending. With twin , virtually [...] and Assessment & Plan (07/23/2024 5:03 PM MOUTHPIECE MAKER): We discussed information regarding fluoxetine in . [...] neck Assessment & Plan (07/23/2024 1:47 PM MOUTHPIECE MAKER): No evidence of disease Assessment & Plan (01/03/2023 4:30 PM CDT): Jayne returns for annual surveillance; feeling well; family stressors the past year, hopefully improved outcomes moving forward ([id number] of cancer, unexpected, Bennett had seizures) Kids doing well, Chhaya 6 years now. 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 Assessment & Plan (07/23/2024 1:31 PM MOUTHPIECE MAKER): Discussed option of semi-Sun's position. Consider discussing mask options with CPAP provider. Adequate treatment of sleep apnea in especially a twin gestation is expected to optimize outcome. Estimated Date of Delivery Comme nts Yes 01/25/2025 Based on Ultraso und Current Treatment and Therapy Plans No current plan information found. Other Current Plans Vascular Access Patency - Peripheral Intravenous Catheter and Rapid Infusion Catheter* Plan Start Date:10/16/2024 Linked Problems Anemia Treatment Medications No medications scheduled. Past Treatment and Therapy Plans Resolved Problems Problem Noted Date Diagnosed Date Resolved Date Abnormal Ultrasound Placenta 07/23/2024 09/12/2024 Overview (07/23/2024): Probable circumvallate placenta twin B, maternal right Advanced level ultrasound pending Serial ultrasounds for growth will be occurring due to twin gestation Assessment & Plan (07/23/2024 1:35 PM MOUTHPIECE MAKER): Discussed circumvallate placenta. This can be associated with an increased risk of growth restriction though this is not a certainty. At this time it will not change plan for serial ultrasounds for growth due to twin gestation.
--- OUTSIDE RECORDS SUMMARY | 2024-11-01 01:42 | XMS_ITS | Encounter Summary ---
Author Organization [facility] Address [address] [place] [address] Care Team Providers Care Chronic Disease Manager Name Role Phone Skylar Farley APRN PRINCIPAL STATISTICAL SCIENTIST Primary Care Provider + Thelma Dia MD Unavailable [phone] Skylar Farley APRN PRINCIPAL STATISTICAL SCIENTIST Unavailable [phone] Skylar Farley APRN PRINCIPAL STATISTICAL SCIENTIST Unavailable [phone] Reason for Visit * Reason Onset Date Comments Appointment 04/10/2019 pt has referral need appt Encounter Details Date Type Department Care Team (Late st Contact Info) Description 04/10/[address], [address] [place] [address] Skylar Farley APRN PRINCIPAL STATISTICAL SCIENTIST [address] [place] [address] Appointment (pt has referral need appt) Social History Tobacco Use Types Packs/Day Years [...] on file Sexual Orientation Not on file documented as of this encounter Miscellaneous Notes * Telephone Encounter - Mariluz Ruiz - 04/10/2019 11:12 AM CDT To schedulers: Please schedule for lst available endocrine. Preferred provider Joseph Holloway Shrestha Lynn A Burmeister, MD Endocrine triage [facility] Phone Message May a detailed message be left on voicemail: yes Reason for Call: Other: need appt for Postoperative hypothyroidism [E89.0];Malignant neoplasm of thyroid gland (H) [C73] Action Taken: Message routed to: [facility] endo documented in this encounter Plan of Treatment Not on file documented as of this encounter Visit Diagnoses Not on filedocumented in this encounter Care Teams Chronic Disease Manager Relationship Specialty Start Date End Date Skylar Farley APRN PRINCIPAL STATISTICAL SCIENTIST PCP - General Nurse Practitioner - Family 04/01/19 Thelma Dia MD [address] [place] [address] [address] [place] [address] INTERNAL MEDICINE - ENDOCRINOLOGY, DIABETES & METABOLISM 04/12/19 Skylar Farley APRN PRINCIPAL STATISTICAL SCIENTIST Referring Physician Nurse Practitioner - Family 04/12/19 Skylar Farley APRN PRINCIPAL STATISTICAL SCIENTIST [address] [place] [address] Assigned PCP 03/14/19 04/15/22 documented as of this encounter
--- OUTSIDE RECORDS SUMMARY | 2024-11-01 01:43 | XMS_ITS | Encounter Summary ---
Author Organization [facility] Address [address] [place] [address] Care Team Providers Care Publicist Name Role Phone Elsewhere, Pcp Primary Care Provider Unavailabl e Encounter Details Date Type Department Care Team (Late st Contact Info) Description 10/28/2024 Orders Only Department of Obstetrics and Gynecology in [place], [place] [address] [place] [phone] Yaa Hou M.D. [address] [place] [phone] 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HCC) (Primary Dx); Type O Blood Rhesus Negative Social History Tobacco Use Types Packs/Day Years Used Date Smoking Tobacco: Never Smokeless Tobacco: Never Alcohol Use Standard Drinks/Week Comments Not Currently 6 (1 standard drink = 0.6 oz pur e alcohol) [facility] Utilities Answer Date Recorded In the past 12 months has [employer], gas, oil, or water [employer] threatened to shut off services in your [...] often do you attend chur ch or yazdanism services? Never 07/23/2019 Do you belong to any clubs o r organizations such as hoahaoism groups, unions, fraternal or athletic groups, or [...] Answer Date Recorded PHQ-2 Score 0 07/23/2024 [facility] - Occupational Stress Questionnaire Answer Date Recorded [...] your living situation today? I have a [facility] place to live 07/10/2024 Education Answer Date [...] PM CDT Legal Sex Female 4:23 AM CARDIOPULMONARY TECHNICIAN AND EEG TECH Gender Identity Female 12/07/2017 3:47 PM CDT Sexual Orientation Straight 12/07/2017 3: 47 PM CDT documented as of this encounter Plan of Treatment Upcoming Encounters Date Type Department Care Team (Late st Contact Info) Description 11/18/2024 7:30 AM CDT Appointment Department of Obstetrics and Gynecology in [place], [place] [address] [place] [phone] Yaa Hou M.D. [address] [place] [phone] Discharge Disposition: Home or Self Care 11/18/2024 9:30 AM CDT Routine Department of Obstetrics and Gynecology in [place], [place] [address] [place] [phone] Yaa Hou M.D. [address] [place] [phone] 12/06/2024 7:30 AM CDT Appointment Department of Obstetrics and Gynecology in [place], [place] [address] [place] [phone] Yaa Hou M.D. [address] [place] [phone] Discharge Disposition: Home or Self Care 12/06/2024 10:00 AM CDT Routine Department of Obstetrics and Gynecology in [place], [place] [address] [place] [phone] Lauren Syed M.D., Ph.D. [address] [place] [phone] 12/16/2024 9:15 AM CDT Appointment Department of Obstetrics and Gynecology in [place], [place] [address] [place] [phone] Yaa Hou M.D. [address] [place] [phone] Discharge Disposition: Home or Self Care 12/16/2024 11:00 AM CDT Routine Department of Obstetrics and Gynecology in [place], [place] [address] [place] [phone] Yaa Hou M.D. [address] [place] [phone] documented as of this encounter Goals Goal Patient Goal Type Associated Problems Recent Progress Patient-Stated? Author [facility] Care Plan for Healthy Care Plan [facility] Care Plan for Healthy No Support, Cogito [facility] - Nicotine Dependency Chronic Care Plan [facility] Care Plan for Healthy No Support, Carlos Albertoito documented as of this encounter Visit Diagnoses Diagnosis 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HCC)- Primary Type O Blood Rhesus Negative documented in this encounter Additional Health Concerns Active Problems Noted Date Diagnosed Date [facility] Care Plan for Healthy 06/13 Assessment Noted Time PHQ-9 Depression Total Score: 1 07/23/19 25 9:31 AM CARDIOPULMONARY TECHNICIAN AND EEG TECH documented as of this encounter Care Teams Publicist Relationship Specialty Start Date End Date Elsewhere, Pcp PCP - General Internal Medicine 03/19/24 Hailey 07/23/24 documented as of this encounter
--- OUTSIDE RECORDS SUMMARY | 2024-11-01 01:43 | XMS_ITS | Encounter Summary ---
Author Organization [facility] Address [address] [place] [address] Care Team Providers Care Food Production Machine Operator Name Role Phone Elsewhere, Pcp Primary Care Provider Unavailabl e Reason for Visit * Reason Comments Med Refill Encounter Details Date Type Department Care Team (Late st Contact Info) Description 08/26/2024 Refill Department of Obstetrics and Gynecology in [place], [place] [address] [place] [phone] Megan Colunga M.D. [address] [place] [phone] Med Refill Social History Tobacco Use Types Packs/Day Years Used Date Smoking Tobacco: Never Smokeless Tobacco: Never Alcohol Use Standard Drinks/Week Comments Not Currently 6 (1 standard drink = 0.6 oz pur e alcohol) [facility] Utilities Answer Date Recorded In the past 12 months has [employer], [employer], oil, or water [employer] threatened to shut off services in your [...] often do you attend chur ch or sikh services? Never 07/23/2019 Do you belong to [...] Answer Date Recorded PHQ-2 Score 0 07/23/2024 [facility] - Occupational Stress Questionnaire Answer Date [...] your living situation today? 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 [address] [place] [phone] Discharge Disposition: Home or Self Care 11/18/2024 9:30 AM CDT Routine Department of Obstetrics and Gynecology in [place], [place] [address] [place] [phone] Yaa Hou M.D. [address] [place] [phone] 12/06/2024 7:30 AM CDT Appointment Department of Obstetrics and Gynecology in [place], [place] [address] [place] [phone] Yaa Hou M.D. [address] [place] [phone] Discharge Disposition: Home or Self Care 12/06/2024 10:00 AM CDT Routine Department of Obstetrics and Gynecology in [place], [place] [address] [place] [phone] Lauren Syed M.D., Ph.D. [address] [place] [phone] 12/16/2024 9:15 AM CDT Appointment Department of Obstetrics and Gynecology in [place], [place] [address] [place] [phone] Yaa Hou M.D. [address] [place] [phone] Discharge Disposition: Home or Self Care 12/16/2024 11:00 AM CDT Routine Department of Obstetrics and Gynecology in [place], [place] [address] [place] [phone] Yaa Hou M.D. [address] [place] [phone] documented as of this encounter Goals Goal Patient Goal Type Associated Problems Recent Progress Patient-Stated? Author [facility] Care Plan for Healthy Care Plan [facility] Care Plan for Healthy No Support, Cogito [facility] - Nicotine Dependency Chronic Care Plan [facility] Care Plan for Healthy No Support, Cogito documented as of this encounter Visit Diagnoses Not on filedocumented in this encounter Additional Health Concerns Active Problems Noted Date Diagnosed Date [facility] Care Plan for Healthy 06/13 Assessment Noted Time PHQ-9 Depression Total Score: 1 07/23/19 25 9:31 AM BICYCLE RENTAL CLERK documented as of this encounter Care Teams Food Production Machine Operator Relationship Specialty Start Date End Date Elsewhere, Pcp PCP - General Internal Medicine 03/19/24 Hailey 07/23/24 documented as of this encounter
--- OUTSIDE RECORDS SUMMARY | 2024-11-01 01:43 | XMS_ITS | Encounter Summary ---
Author Organization [facility] Address [address] [place] [address] Care Team Providers Care Chemical Equipment Repairer Name Role Phone Elsewhere, Pcp Primary Care Provider Unavailabl e Reason for Referral * Outpatient (Routine) - Closed Specialty Diagnoses / Procedures Referred By Contdarlyn t Referred To Contact Obstetrics and Gynecology Yaa Hou M.D. [address] [place] [phone] Phone: tel: fax: [facility] Referral ID Status Reason Start Date Expiration Date Visits Re quested Visits Authorized [id number] Closed 10/28/2024 04/29/2026 1 1 Scheduling Instructions Please schedule with Dr Hou Encounter Details Date Type Department Care Team (Late st Contact Info) Description 10/28/2024 Orders Only Department of Obstetrics and Gynecology in [place], [place] [address] [place] [phone] Megan Penny, RDemiN. Social History Tobacco Use Types Packs/Day Years Used Date Smoking Tobacco: Never Smokeless Tobacco: Never Alcohol Use Standard Drinks/Week Comments Not Currently 6 (1 standard drink = 0.6 oz pur e alcohol) [facility] Utilities Answer Date Recorded In the [...] often do you attend chur ch or temple services? Never 07/23/2019 Do you belong to [...] Date Recorded PHQ-2 Score 0 07/23/2024 [facility] of Occupat ionms Health - Occupational Stress Questionnaire Answer Date [...] your living situation today? I have a [facility] place to live 07/10/2024 Education Answer [...] PM CDT Legal Sex Female 4:23 AM TRAFFIC LIEUTENANT Gender Identity Female 12/07/2017 3:47 PM CDT Sexual Orientation Straight 12/07/2017 3: 47 PM CDT documented as of this encounter Plan of Treatment Upcoming Encounters Date Type Department Care Team (Late st Contact Info) Description 11/18/2024 7:30 AM CDT Appointment Department of Obstetrics and Gynecology in [place], [place] [address] [place] [phone] Yaa Hou M.D. [address] [place] [phone] Discharge Disposition: Home or Self Care 11/18/2024 9:30 AM CDT Routine Department of Obstetrics and Gynecology in [place], [place] [address] [place] [phone] Yaa Hou M.D. [address] [place] [phone] 12/06/2024 7:30 AM CDT Appointment Department of Obstetrics and Gynecology in [place], [place] [address] [place] [phone] Yaa Hou M.D. [address] [place] [phone] Discharge Disposition: Home or Self Care 12/06/2024 10:00 AM CDT Routine Department of Obstetrics and Gynecology in [address] [phone] Lauren Syed M.D., Ph.D. [address] [place] [phone] 12/16/2024 9:15 AM CDT Appointment Department of Obstetrics and Gynecology in [place], [place] [address] [place] [phone] Yaa Hou M.D. [address] [place] [phone] Discharge Disposition: Home or Self Care 12/16/2024 11:00 AM CDT Routine Department of Obstetrics and Gynecology in [address] [phone] Yaa Hou M.D. [address] [place] [phone] Scheduled Referrals Name Type Priority Associated Diagnoses Order Schedule Obstetrics and Gynecology office visit (clinic) Outpatient Referral Routine Expected: 10/28/2024, Expires: 01/28/2026 documented as of this encounter Goals Goal Patient Goal Type Associated Problems Recent Progress Patient-Stated? Author [facility] Care Plan for Healthy Care Plan [facility] Care Plan for Healthy No Support, Keesha [facility] - Nicotine Dependency Chronic Care Plan [facility] Care Plan for Healthy No Support, [employer] documented as of this encounter Visit Diagnoses Not on filedocumented in this encounter Additional Health Concerns Active Problems Noted Date Diagnosed Date [facility] Care Plan for Healthy 06/13 Assessment Noted Time PHQ-9 Depression Total Score: 1 07/23/19 25 9:31 AM TRAFFIC LIEUTENANT documented as of this encounter Care Teams Chemical Equipment Repairer Relationship Specialty Start Date End Date Elsewhere, Pcp PCP - General Internal Medicine 03/19/24 Hailey 07/23/24 documented as of this encounter
--- OUTSIDE RECORDS SUMMARY | 2024-11-01 01:43 | XMS_ITS | Encounter Summary ---
Author Organization [facility] Address [address] [place] [address] Care Team Providers Care Tank Refinisher Name Role Phone Elsewhere, Pcp Primary Care Provider Unavailabl e Encounter Details Date Type Department Care Team (Late st Contact Info) Description 08/27/2024 Clinical Communication Department of Obstetrics and Gynecology in [place], [place] [address] [place] [phone] Yaa Hou M.D. [address] [place] [phone] Social History Tobacco Use Types Packs/Day Years Used Date Smoking Tobacco: Never Smokeless Tobacco: Never Alcohol Use Standard Drinks/Week Comments Not Currently 6 (1 standard drink = 0.6 oz pur e alcohol) [facility] Utilities Answer Date Recorded In the past 12 months has [facility] [employer], gas, oil, or water [employer] threatened to shut off services in your [...] often do you attend chur ch or jewish services? Never 07/23/2019 Do you belong to any clubs o r organizations such as baptist groups, unions, fraternal or athletic groups, or [...] Answer Date Recorded PHQ-2 Score 0 07/23/2024 [facility] of Occupat ional [facility] - Occupational Stress Questionnaire Answer [...] your living situation today? 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 [address] [place] [phone] Discharge Disposition: Home or Self Care 11/18/2024 9:30 AM CDT Routine Department of Obstetrics and Gynecology in [place], [place] [address] [place] [phone] Yaa Hou M.D. [address] [place] [phone] 12/06/2024 7:30 AM CDT Appointment Department of Obstetrics and Gynecology in [place], [place] [address] [place] [phone] Yaa Hou M.D. [address] [place] [phone] Discharge Disposition: Home or Self Care 12/06/2024 10:00 AM CDT Routine Department of Obstetrics and Gynecology in [place], [place] [address] [place] [phone] Lauren Syed M.D., Ph.D. [address] [place] [phone] 12/16/2024 9:15 AM CDT Appointment Department of Obstetrics and Gynecology in [place], [place] [address] [place] [phone] Yaa Hou M.D. [address] [place] [phone] Discharge Disposition: Home or Self Care 12/16/2024 11:00 AM CDT Routine Department of Obstetrics and Gynecology in [place], [place] [address] [place] [phone] Yaa Hou M.D. [address] [place] [phone] documented as of this encounter Goals Goal Patient Goal Type Associated Problems Recent Progress Patient-Stated? Author [facility] Care Plan for Healthy Care Plan [facility] Care Plan for Healthy No Support, Cogito [facility] - Nicotine Dependency Chronic Care Plan [facility] Care Plan for Healthy No Support, [employer] documented as of this encounter Visit Diagnoses Not on filedocumented in this encounter Additional Health Concerns Active Problems Noted Date Diagnosed Date [facility] Care Plan for Healthy 06/13 Assessment Noted Time PHQ-9 Depression Total Score: 1 07/23/19 25 9:31 AM WING SCORER documented as of this encounter Care Teams Tank Refinisher Relationship Specialty Start Date End Date Elsewhere, Pcp PCP - General Internal Medicine 03/19/24 Hailey 07/23/24 documented as of this encounter
--- OUTSIDE RECORDS SUMMARY | 2024-11-01 01:43 | XMS_ITS | Encounter Summary ---
Author Organization [facility] Address [address] [place] [address] Care Team Providers Care Traffic Safety Administrator Name Role Phone Elsewhere, Pcp Primary Care Provider Unavailabl e Encounter Details Date Type Department Care Team (Late st Contact Info) Description 10/14/2024 Results Follow-Up Department of Obstetrics and Gynecology in [place], [place] [address] [place] [phone] Yaa Hou M.D. [address] [place] [phone] CBC without Differential, S-TSH (Thyroid-Stimulating Hormone - Sensitive), Glucose Tolerance Test, 1 hour, Additional followed-up results: 2 Social History Tobacco Use Types Packs/Day Years Used Date Smoking Tobacco: Never Smokeless Tobacco: Never Alcohol Use Standard Drinks/Week Comments Not Currently 6 (1 standard drink = 0.6 oz pur e alcohol) [facility] Utilities Answer Date Recorded In the past 12 months has [employer], gas, oil, or water [employer] threatened to shut off services in your [...] week 07/23/2019 How often do you attend [facility] or zoroastrian services? Never 07/23/2019 Do you belong to any clubs o r organizations such as hindu groups, unions, fraternal or athletic groups, or [...] Answer Date Recorded PHQ-2 Score 0 07/23/2024 [facility] of Occupat ional Health - Occupational Stress [...] your living situation today? 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 [address] [place] [phone] Discharge Disposition: Home or Self Care 11/18/2024 9:30 AM CDT Routine Department of Obstetrics and Gynecology in [place], [place] [address] [place] [phone] Yaa Hou M.D. [address] [place] [phone] 12/06/2024 7:30 AM CDT Appointment Department of Obstetrics and Gynecology in [place], [place] [address] [place] [address] Yaa Hou M.D. [address] [place] [phone] Discharge Disposition: Home or Self Care 12/06/2024 10:00 AM CDT Routine Department of Obstetrics and Gynecology in [place], [place] [address] [place] [phone] Lauren Syed M.D., Ph.D. [address] [place] [phone] 12/16/2024 9:15 AM CDT Appointment Department of Obstetrics and Gynecology in [place], [place] [address] [place] [phone] Yaa Hou M.D. [address] [place] [phone] Discharge Disposition: Home or Self Care 12/16/2024 11:00 AM CDT Routine Department of Obstetrics and Gynecology in [place], [place] [address] [place] [phone] Yaa Hou M.D. [address] [place] [phone] documented as of this encounter Goals Goal Patient Goal Type Associated Problems Recent Progress Patient-Stated? Author [facility] Care Plan for Healthy Care Plan [facility] Care Plan for Healthy No SupportKeesha [facility] - Nicotine Dependency Chronic Care Plan [facility] Care Plan for Healthy No Support, Keesha documented as of this encounter Results * Glucose Tolerance, 3 Hours (10/16/2024 8:07 AM CDT) [facility] Glucose, Fasting 94 Not Applicable mg/dL 10/16/2024 9:12 AM CDT DTL Glucose, 1 Hr 124 Not Applicable mg/dL 10/16/2024 9:48 AM CDT DTL Glucose, 2 Hr 114 Not Applicable mg/dL 10/16/2024 11:13 AM CDT DTL Glucose, 3 Hr 120 Not Applicable mg/dL 10/16/2024 11:42 AM CDT DTL Blood (Blood, Venous) 10/16/2024 8:07 AM CDT 10/16/2024 8:55 AM CDT Narrative [facility] - 10/16/2024 11:42 AM CDT Specimen Information: Specimen ID: [id number] Specimen Type: Blood Specimen Collection Start Date: 10/16/2024 8:07 AM Specimen Received Date: 10/16/2024 8:55 AM Specimen ID: [id number] Specimen Type: Blood Specimen Collection Start Date: 10/16/2024 9:10 AM Specimen Received Date: 10/16/2024 9:33 AM Specimen ID: [id number] Specimen Type: Blood Specimen Collection Start Date: 10/16/2024 10:09 AM Specimen Received Date: 10/16/2024 10:38 AM Specimen ID: [id number] Specimen Type: Blood Specimen Collection Start Date: 10/16/2024 11:07 AM Specimen Received Date: 10/16/2024 11:29 AM Yaa Hou M.D. LAB BLOOD NON ADD-ON Final Result [facility] [address] [place] [address], [facility] [address] [place] [address] documented in this encounter Visit Diagnoses Diagnosis High Risk (HCC)- Primary Anemia High Risk (HCC) documented in this encounter Additional Health Concerns Active Problems Noted Date Diagnosed Date [facility] Care Plan for Healthy 06/13 Assessment Noted Time PHQ-9 Depression Total Score: 1 07/23/19 25 9:31 AM BIOENGINEER documented as of this encounter Care Teams Traffic Safety Administrator Relationship Specialty Start Date End Date Elsewhere, Pcp PCP - General Internal Medicine 03/19/24 Hailey 07/23/24 documented as of this encounter
--- OUTSIDE RECORDS SUMMARY | 2024-11-01 01:43 | XMS_ITS | Encounter Summary ---
Author Organization [facility] Address [address] [place] [address] Care Team Providers Care Air Route Traffic Controller Name Role Phone Elsewhere, Pcp Primary Care Provider Unavailabl e Encounter Details Date Type Department Care Team (Late st Contact Info) Description 09/12/2024 Orders Only Department of Obstetrics and Gynecology in [place], [place] [address] [place] [phone] Amalia Canela RSusan [address] [place] [phone] 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HCC) (Primary Dx) Social History Tobacco Use Types Packs/Day Years Used Date Smoking Tobacco: Never Smokeless Tobacco: Never Alcohol Use Standard Drinks/Week Comments Not Currently 6 (1 standard drink = 0.6 oz pur e alcohol) [facility] Utilities Answer Date Recorded In the past 12 months has [facility] [employer], gas, oil, or water [employer] threatened to shut off services in your [...] often do you attend chur ch or episcopalian services? Never 07/23/2019 Do you belong to [...] Answer Date Recorded PHQ-2 Score 0 07/23/2024 [facility] of Occupat ional [facility] - Occupational Stress Questionnaire Answer [...] your living situation today? 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 [address] [place] [phone] Discharge Disposition: Home or Self Care 11/18/2024 9:30 AM CDT Routine Department of Obstetrics and Gynecology in [place], [place] [address] [place] [phone] Yaa Hou M.D. [address] [place] [phone] 12/06/2024 7:30 AM CDT Appointment Department of Obstetrics and Gynecology in [place], [place] [address] [place] [address] Yaa Hou M.D. [address] [place] [phone] Discharge Disposition: Home or Self Care 12/06/2024 10:00 AM CDT Routine Department of Obstetrics and Gynecology in [place], [place] [address] [place] [phone] Lauren Syed M.D., Ph.D. [address] [place] [phone] 12/16/2024 9:15 AM CDT Appointment Department of Obstetrics and Gynecology in [place], [place] [address] [place] [address] Yaa Hou M.D. [address] [place] [phone] Discharge Disposition: Home or Self Care 12/16/2024 11:00 AM CDT Routine Department of Obstetrics and Gynecology in [place], [place] [address] [place] [address] Yaa Hou M.D. [address] [place] [phone] documented as of this encounter Goals Goal Patient Goal Type Associated Problems Recent Progress Patient-Stated? Author [facility] Care Plan for Healthy Care Plan [facility] Care Plan for Healthy No Support, Cogito [facility] - Nicotine Dependency Chronic Care Plan [facility] Care Plan for Healthy No Support, [employer] documented as of this encounter Visit Diagnoses Diagnosis 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HCC)- Primary documented in this encounter Additional Health Concerns Active Problems Noted Date Diagnosed Date [facility] Care Plan for Healthy 06/13 Assessment Noted Time PHQ-9 Depression Total Score: 1 07/23/19 9:31 AM HOTEL DESK CLERK documented as of this encounter Care Teams Air Route Traffic Controller Relationship Specialty Start Date End Date Elsewhere, Pcp PCP - General Internal Medicine 03/19/24 Hailey 07/23/24 documented as of this encounter
--- OUTSIDE RECORDS SUMMARY | 2024-11-01 01:43 | XMS_ITS | Encounter Summary ---
Author Organization [facility] Address [address] [place] [address] Care Team Providers Care Recruitment Specialist Name Role Phone Elsewhere, Pcp Primary Care Provider Unavailabl e Encounter Details Date Type Department Care Team (Late st Contact Info) Description 10/18/2024 Results Follow-Up Department of Obstetrics and Gynecology in [place], [place] [address] [place] [phone] Yaa Hou M.D. [address] [place] [phone] Glucose Tolerance, 3 Hours Social History Tobacco Use Types Packs/Day Years Used Date Smoking Tobacco: Never Smokeless Tobacco: Never Alcohol Use Standard Drinks/Week Comments Not Currently 6 (1 standard drink = 0.6 oz pur e alcohol) [facility] Utilities Answer Date Recorded In the past 12 months has [employer], gas, oil, or water [employer] threatened to shut off services in your [...] often do you attend chur ch or mormon services? Never 07/23/2019 Do you belong to any clubs o r organizations such as anabaptist groups, unions, fraternal or athletic groups, or [...] Answer Date Recorded PHQ-2 Score 0 07/23/2024 [facility] of Occupat ional [facility] - Occupational Stress Questionnaire Answer Date [...] your living situation today? 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 [address] [place] [phone] Discharge Disposition: Home or Self Care 11/18/2024 9:30 AM CDT Routine Department of Obstetrics and Gynecology in [place], [place] [address] [place] [phone] Yaa Hou M.D. [address] [place] [phone] 12/06/2024 7:30 AM CDT Appointment Department of Obstetrics and Gynecology in [place], [place] [address] [place] [phone] Yaa Hou M.D. [address] [place] [phone] Discharge Disposition: Home or Self Care 12/06/2024 10:00 AM CDT Routine Department of Obstetrics and Gynecology in [place], [place] [address] [place] [phone] Lauren Syed M.D., Ph.D. [address] [place] [phone] 12/16/2024 9:15 AM CDT Appointment Department of Obstetrics and Gynecology in [place], [place] [address] [place] [phone] Yaa Hou M.D. [address] [place] [phone] Discharge Disposition: Home or Self Care 12/16/2024 11:00 AM CDT Routine Department of Obstetrics and Gynecology in [place], [place] [address] [place] [address] Yaa Hou M.D. [address] [place] [phone] documented as of this encounter Goals Goal Patient Goal Type Associated Problems Recent Progress Patient-Stated? Author [facility] Care Plan for Healthy Care Plan [facility] Care Plan for Healthy No Support, Cogito [facility] - Nicotine Dependency Chronic Care Plan [facility] Care Plan for Healthy No Support, [employer] documented as of this encounter Visit Diagnoses Not on filedocumented in this encounter Additional Health Concerns Active Problems Noted Date Diagnosed Date [facility] Care Plan for Healthy 06/13 Assessment Noted Time PHQ-9 Depression Total Score: 1 07/23/19 25 9:31 AM PHYSICIAN AIDE documented as of this encounter Care Teams Recruitment Specialist Relationship Specialty Start Date End Date Elsewhere, Pcp PCP - General Internal Medicine 03/19/24 Hailey 07/23/24 documented as of this encounter
--- NOTE | 2024-11-01 04:24 | ED.GENADULT ---
HPI - General Adult General Chief complaint: Headache/Migraine Stated complaint: 27 weeks , headache Time Seen by Provider: 11/01/24 01:41 History of Present Illness HPI narrative: Left without being seen Related Data Home Medications ?Medication ?Instructions ?Recorded ?Confirmed docosahexaenoic acid 200 mg mg PO 06/27/24 08/12/24 capsule ( DHA) fluoxetine 20 mg capsule 20 mg PO QAM 06/27/24 08/12/24 magnesium 200 mg tablet 200 mg PO QDAY 06/27/24 08/12/24 omega 0-nwj-why-fish oil 1,200 mg cap PO 06/27/24 08/12/24 (144 mg-216 mg) capsule (Fish Oil) folic acid 1 mg tablet 1 mg PO QDAY 07/22/24 08/12/24 ferrous sulfate 325 mg (65 mg 325 mg PO QDAY 08/12/24 08/12/24 iron) tablet (Feosol) Previous Rx's ?Medication ?Instructions ?Recorded levothyroxine 200 mcg tablet 200 mcg PO QDAY #60 tabs 06/28/24 Allergies Allergy/AdvReac Type Severity Reaction Status Date / Time No Known Drug Allergies Allergy Verified 08/12/24 13:26 PFSH PFS Medical History (Updated 06/27/24 @ 09:54 by Delia Fontenot CNM) Thyroid cancer ?C73 - Malignant neoplasm of thyroid gland (ICD-10) Surgical History (Updated 06/28/24 @ 08:35 by Delia Fontenot CNM) [place] teeth extracted ?K08.409 - Partial loss of teeth, unspecified cause, unspecified class (ICD-10) History of thyroidectomy ?Z98.890 - Other specified postprocedural states (ICD-10) ?Z90.89 - Acquired absence of other organs (ICD-10) Social History (Updated 06/28/24 @ 18:28 by Delia Fontenot CNM) Narrative: SOCIAL Education: Bachelor's degree 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 Lives with: Bennett, two children Pets: Three dog, 2 fish and snail Abuse: Denies past/present Special Diet: Denies Ok with a blood transfusion: yes Culture or bahai beliefs: denies RISK FACTORS Exercise Times/wk: Moderately, usually zoom with sharepoint trainer 2x per week Hx of Depression and/or Anxiety/other mood disorder: Anxiety, not currently seeing a therapist; Fluoxetine Seat Belt Use: Routinely Smoking: Denies past/present Alcohol/day: Denies while ; socially Caffeine: 1 cup Drug Use: Denies past/present Chicken Pox: uncertain MRSA: Denies What is your current living situation?: I presently have a place to live Problems where you live: no known problems In the past 12 months, utilities in danger of being shut off: no In past 12 months, lack of transportation kept you from medical appts, meetings, work, or getting things needed for daily living: no In the past 12 mos, have been you worried that your food would run out before you had money to buy more?: never true In the past 12 mos, the food you bought just didn't last and you didn't have money to buy more?: never true Smoking Status: Never smoker Do you use any of these nicotine containing products: None How often do you have a drink containing alcohol: 4 or more times a week How many standard drinks containing alcohol do you have on a typical day: 1 or 2 AUDIT-C Alcohol total score: 4 Non-prescribed substance use: denies use How often does anyone, including family, friends and others, physically hurt you: never How often does anyone, including family, friends and others, insult or talk down to you: never How often does anyone, including family, friends and others, threaten you with harm: never How often does anyone, including family, friends and others, scream or curse at you: never service: No Exam Const: Vital Signs, click to edit/add: Vital Signs - 24 hr 11/01/24 01:42 Temperature 97.8 F Pulse Rate [Pulse Oximeter] 102 H Respiratory Rate 16 Blood Pressure [Ri ght Upper Arm] 117/71 Pulse Oximetry 99 Oxygen Delivery Me thod Room Air Course Vital Signs Vital signs: Initial Vital Signs Temperature 97.8 F 11/01/24 01:42 Temperature Source Temporal Artery Scan 11/01/24 01:42 Pulse Rate 102 H 11/01/24 01:42 Respiratory Rate 16 11/01/24 01:42 Blood Pressure 117/71 11/01/24 01:42 Blood Pressure Mean 86 11/01/24 01:42 Blood Pressure Position Sitting 11/01/24 01:42 Pulse Oximetry 99 11/01/24 01:42 Oxygen Delivery Method Room Air 11/01/24 01:42 Vital Signs Temperature 97.8 F 11/01/24 01:42 Pulse Rate 102 H 11/01/24 01:42 Respiratory Rate 16 11/01/24 01:42 Blood Pressure 117/71 11/01/24 01:42 Pulse Oximetry 99 11/01/24 01:42 Oxygen Delivery Method Room Air 11/01/24 01:42 Temperature 97.8 F 11/01/24 01:42 Pulse Rate 102 H 11/01/24 01:42 Respiratory Rate 16 11/01/24 01:42 Blood Pressure 117/71 11/01/24 01:42 Pulse Oximetry 99 11/01/24 01:42 Oxygen Delivery Method Room Air 11/01/24 01:42 Discharge Plan Discharge Prescriptions: No Action folic acid 1 mg tablet 1 mg PO QDAY ferrous sulfate [Feosol] 325 mg (65 mg iron) tablet 325 mg PO QDAY fluoxetine 20 mg capsule 20 mg PO QAM DHA 200 mg capsule PO magnesium 200 mg tablet 200 mg PO QDAY omega 7-hdj-ypb-fish oil [Fish Oil] 1,200 (144-216) mg capsule PO levothyroxine 200 mcg tablet 200 mcg PO QDAY Qty: 60 0RF Rx Instructions: Taken with 25 mcg tab for total of 225 mcg. Follow Up/Referrals: Trisha King MD [Primary Care Provider, Family Practice]
== END 2024-11-01 01:56 | disposition home or self-care (01) ==
LOC: ED 01:53
PROVIDERS: Emergency Provider Family Medicine; PCP Family Medicine
DX: Z53.21 Procedure and treatment not carried out due to patient leaving prior to being seen by health care provider (principal)
CPT/HCPCS: 99281